=== PATIENT | female | born 1955 | race Caucasian/White ===

== ENCOUNTER 2017-02-01 00:21 | Inpatient (IN) | payer MEDICAID ==
[2017-02-01] VITALS (8 sets, daily range): BP systolic 107–181; BP diastolic 55–92; PULSE 75–96; RESP 14–20; TEMP 97.6–99.8; O2SAT 95–99
[~2017-02-01] VITALS: Ht 152.4 cm; Wt 102.2 kg
[2017-02-01] MEDS ORDERED: SODIUM CHLOR 0.9% 1000 ML INJ 1,000 ML IV SCH (01:27)
[2017-02-01] MEDS ORDERED: MAGNESIUM HYDROXIDE SUSP 30 ML CUP PO PRN (01:30)
[2017-02-01] MEDS ORDERED: ONDANSETRON HCL 4 MG/2 ML VIAL IVP PRN (01:30)
[2017-02-01] MEDS ORDERED: ACETAMINOPHEN 325 MG TAB PO PRN (01:30)
[2017-02-01] MEDS ORDERED: NALOXONE HCL 0.4 MG/ML AMP IV PRN (01:30)
[2017-02-01] MEDS ORDERED: BISACODYL 10 MG SUPP RECTAL PRN (01:30)
[2017-02-01] MEDS ORDERED: DEXTROSE 50% IN WATER 50 ML VIAL(D50) IV PRN (01:45)
[2017-02-01] MEDS ORDERED: GLUCAGON 1 MG/ML VIAL OTHER PRN (01:45)
[2017-02-01] MEDS ORDERED: ENOXAPARIN SODIUM 40 MG/0.4 ML SYRINGE SQ SCH (02:00)
[2017-02-01] MEDS: DEXT 5%-NACL 0.45% 1000 ML INJ 1,000 ML IV SCH (02:42)
[2017-02-01] MEDS ORDERED: PIPERACIL-TAZO 3.375 GM PREMIX 50 ML IV SCH (02:45)
[2017-02-01] MEDS ORDERED: MORPHINE SULFATE 4 MG/ML INJ IV PUSH ONE (02:45)
[2017-02-01] MEDS ORDERED: Vancomycin Consult Pharmacy 1 EA OTHER SCH (02:45)
[2017-02-01] MEDS: PIPERACIL-TAZO 2.25 GM PREMIX 50 ML IV SCH ×3 (03:54→15:00)
[2017-02-01] MEDS ORDERED: VANCOMYCIN INJ 1,250 MG in SODIUM CHLOR 0.9% 250 ML INJ 250 ML IV ONE (04:00)
--- NOTE | 2017-02-01 04:38 | HHI.HP ---
HPI Service [facility] Hospitalists Primary Care Physician Hugh Urrutia Admission Diagnosis L perineal cellulitis Diagnoses: Chief Complaint: pain and indurated skin L thigh/buttock area Travel History International Travel<30 Days: No Contact w/Intl Traveler <30 Da: No Traveled to Known Affected Are: No History of Present Illness Written by Adriana Alvarado, acting as scribe for Dr. Velázquez on 02/01/17 at 05: 12. This is a 61 year old female patient with a past medical which includes chronic kidney disease stage III, diabetes mellitus insulin-dependent, cirrhosis, depression and tobacco abuse. Patient presented to [facility] emergency department, with complaints of left inner thigh and buttock pain edema and erythema. Patient reports the area began as a small, "cyst," that has gotten more painful and increased in size over the past week. Patient describes the pain as sharp severe and in tears at time of exam. Patient also reports generalized malaise for the past few days with chills and nausea for the past 2 days. Patient denies any specific trauma or events leading to skin irritation. Patient denies any penile numbness, vaginal discharge, bleeding or rectal discharge. Patient also denies fevers vomiting diarrhea constipation chest pain or shortness of breath. Patient reports that she had similar symptoms on the right inner thigh which required surgical intervention in the past. Pelvic CT scan done at [facility] [place] she was left perineal cellulitis with no abscess. Review of Systems Except as stated in HPI: all other systems reviewed are Neg Past Family Social History Past Medical History chronic kidney disease stage III, diabetes mellitus insulin-dependent, cirrhosis , depression and tobacco abuse Past Surgical History Umbilical hernia repair, 2, excision right thigh cellulitis Reported Medications Patient unable to recall medications at this time nurse to complete medication reconciliation once pharmacy open Allergies: Coded Allergies: Egg Allergy (Verified Allergy, Unknown, 01/31/17) Levaquin (Verified Allergy, Unknown, 01/31/17) [place] (Verified Allergy, Unknown, 01/31/17) Pear (Verified Allergy, Unknown, 01/31/17) Penicillin (Verified Allergy, Unknown, 01/31/17) [place] (Verified Allergy, Unknown, 01/31/17) Active Ordered Medications Current Medications Medications (Trade) Dose Ordered Sig/Lotus Route Start Time Stop Time Status Last Admin (NS Flush) 2 ml UNSCH PRN IV FLUSH 02/01/17 01:30 (NS Flush) 2 ml BID IV FLUSH 02/01/17 09:00 (Tylenol) 650 mg Q4H PRN PO 02/01/17 01:30 (Zofran Inj) 4 mg Q6H PRN IVP 02/01/17 01:30 (Narcan Inj) 0.4 mg UNSCH PRN IV 02/01/17 01:30 (Meghana-Colace) 1 tab BID PO 02/01/17 09:00 (Milk Of Magnhazel Liq) 30 ml Q12H PRN PO 02/01/17 01:30 Bisacodyl 10 mg 10 mg DAILY PRN RECTAL 02/01/17 01:30 (D5W-1/2 NS 1000 ml Inj) 1,000 ml @ 42 mls/hr [id number] IV 02/01/17 01:45 02/01/17 02:42 (D50w (Vial) Inj) 50 ml UNSCH PRN IV 02/01/17 01:45 (Glucagon Inj) 1 mg UNSCH PRN OTHER 02/01/17 01:45 Morphine Sulfate 2 mg 2 mg Q4HR PRN IV PUSH 02/01/17 02:45 Pharmacy Profile Note 0 ml @ 0 mls/hr UNSCH OTHER 02/01/17 02:45 Vancomycin HCl 1250 mg/Sodium Chloride 262.5 ml @ 250 mls/hr ONCE ONCE IV 02/01/17 04:00 02/01/17 05:02 02/01/17 03:54 (Zosyn 2.25 Gm Premix) 50 ml @ 100 mls/hr Q6H IV 02/01/17 03:00 02/01/17 03:54 Family History Patient's mother is 89 alive and healthy Denies family medical history is specifically CAD/[place] or similar skin issues Social History Patient denies EtOH use Patient admits to smoking 5 cigarettes per day Physical Exam Vital Signs Vital Signs Date Time Temp Pulse Resp B/P Pulse Ox O2 Delivery O2 Flow Rate FiO2 02/01/17 01:00 97.6 78 14 107/55 95 Physical Exam GENERAL: This is an obese, well-developed patient, crying in pain SKIN: large indurated erythematous warm area from left upper thigh to buttock HEAD: Atraumatic. Normocephalic. No temporal or scalp tenderness. EYES: Extraocular motions intact. No scleral icterus. No injection or drainage. CARDIOVASCULAR: Regular rate and rhythm without murmurs, gallops, or rubs. RESPIRATORY: Clear to auscultation. Breath sounds equal bilaterally. No wheezes , rales, or rhonchi. GASTROINTESTINAL: Abdomen obese soft, non-tender, nondistended. Palpable rubbery 3 cm mass/lump palpable above the umbilicus. No guarding. MUSCULOSKELETAL: Extremities without clubbing, cyanosis, or edema. No joint tenderness, effusion, or edema noted. No calf tenderness. Negative Homans sign bilaterally. NEUROLOGICAL: Awake and alert. Cranial nerves II through XII intact. Motor and sensory grossly within normal limits. Five out of 5 muscle strength in all muscle groups. Normal speech. Assessment and Plan Problem List: (1) Cellulitis ICD Code: L03.90 Status: Acute (2) DM (diabetes mellitus) ICD Code: E11.9 Status: Chronic (3) Thrombocytopenia ICD Code: D69.6 Status: Chronic Assessment and Plan This is a 61 year old female patient with a past medical which includes chronic kidney disease stage III, diabetes mellitus insulin-dependent, cirrhosis, depression and tobacco abuse. Patient presented to [facility] emergency department, with complaints of left inner thigh and buttock pain edema and erythema. Patient reports the area began as a small, "cyst," that has gotten more painful and increased in size over the past week. Patient describes the pain as sharp severe and in tears at time of exam. Patient also reports generalized malaise for the past few days with chills and nausea for the past 2 days. Patient reports that she had similar symptoms on the right inner thigh which required surgical intervention in the past. Left peroneal cellulitis acute concern for necrotizing fasciitis Pelvic CT scan done at [facility] [place] she was left perineal cellulitis with no abscess ER physician [facility] [place] discussed with Gen. surgery Dr. Styles who agrees to see patient in consult Consult general surgery Morphine IV for pain Patient nothing by mouth at this time Requested nurse to ksenia area with skin marker and call if induration or erythema increases in size Patient given clindamycin and vancomycin IV in ER Start patient on Zosyn and vancomycin IV with pharmacy consultation for vancomycin chronic kidney disease stage III Avoid nephrotoxins monitor renal function Diabetes mellitus insulin-dependent Accu-Cheks before meals at bedtime with sliding scale insulin coverage Thrombocytopenia- likely chronic platelet count 51 CT abdomen and pelvis reviewed reveals enlarged spleen patient also has history of cirrhosis Monitor platelet trend Tobacco abuse- patient counseled encouraged to abstain DVT prophylaxis with SCDs Discussed severe provider, patient and nursing Physician Certification 2 Midnight Certification Type: Admission for Inpatient Services Order for Inpatient Services The services are ordered in accordance with Medicare regulations or non- Medicare payer requirements, as applicable. In the case of services not specified as inpatient-only, they are appropriately provided as inpatient services in accordance with the 2-midnight benchmark. Estimated LOS (days): 3 days is the estimated time the patient will need to remain in the hospital, assuming treatment plan goals are met and no additional complications. Post-Hospital Plan: Home Adriana Alvarado Feb 01, 2017 04:38
[2017-02-01] MEDS ORDERED: CLINDAMYCIN INJ 600 MG in SODIUM CHLORIDE 0.9% INJ 100 ML IV SCH (05:00)
[2017-02-01] MEDS: INSULIN ASPART SUPPLEMENTAL SCALE SQ SCH ×4 (06:16→22:18)
[2017-02-01] MEDS: DOCUSATE SODIUM 50 MG/SENNA 8.6 MG TAB PO SCH ×2 (09:00→21:00)
[2017-02-01] MEDS: SODIUM CHLORIDE 0.9% FLUSH 10 ML FLUSH IV FLUSH SCH ×2 (09:08→21:49)
[2017-02-01] MEDS: MORPHINE SULFATE 4 MG/ML INJ IV PUSH PRN ×4 (09:08→22:05)
--- NOTE | 2017-02-01 12:15 | HHI.PR ---
Subjective Remarks Follow-up for infection Patient continues to have severe pain with movement in her pelvic and inner thigh area. She remains afebrile. She stated that she had the same problem last time in which she had ago surgery. She has no other complaints. Denies any fevers or chills. Objective Vitals Vital Signs Date Time Temp Pulse Resp B/P Pulse Ox O2 Delivery O2 Flow Rate FiO2 02/01/17 09:00 Room Air 02/01/17 08:00 98.7 95 20 181/92 98 02/01/17 04:00 97.9 75 16 135/67 99 02/01/17 01:00 97.6 78 14 107/55 95 I/O 01/31/17 01/31/17 01/31/17 02/01/17 02/01/17 02/01/17 07:00 15:00 23:00 07:00 15:00 23:00 Intake Total 319 ml Balance 319 ml Intake IV Total 319 ml # Voids 1 # Bowel Movements 0 Objective Remarks GENERAL: This is an obese, well-developed patient, crying in pain SKIN: large indurated erythematous warm area from left upper thigh to buttock CARDIOVASCULAR: Regular rate and rhythm without murmurs, gallops, or rubs. RESPIRATORY: Clear to auscultation. Breath sounds equal bilaterally. No wheezes , rales, or rhonchi. GASTROINTESTINAL: Abdomen obese soft, non-tender, nondistended. Palpable rubbery 3 cm mass/lump palpable above the umbilicus. No guarding. Medications and IVs Current Medications Sodium Chloride (NS 1000 ml Inj) 1,000 ml @ 42 mls/hr [id number] IV ; Start at 01:27; Stop 02/01/17 at 01:46; Status DC Sodium Chloride (NS Flush) 2 ml UNSCH PRN IV FLUSH FLUSH AFTER USING IV ACCESS ; Start 02/01/17 at 01:30 Sodium Chloride (NS Flush) 2 ml BID IV FLUSH Last administered on 02/01/17t 09: 08; Start 02/01/17 at 09:00 Acetaminophen (Tylenol) 650 mg Q4H PRN PO TEMP > 100.4; Start 02/01/17 at 01:30 Ondansetron HCl (Zofran Inj) 4 mg Q6H PRN IVP NAUSEA OR VOMITING; Start at 01:30 Enoxaparin Sodium (Lovenox Inj) 40 mg Q24H SQ ; Start 02/01/17 at 02:00; Stop 02/01/17 at 02:03; Status DC Naloxone HCl (Narcan Inj) 0.4 mg UNSCH PRN IV SEE LABEL COMMENTS; Start at 01:30 Senna/Docusate Sodium (Meghana-Colace) 1 tab BID PO ; Start 02/01/17 at 09:00 Magnesium Hydroxide (Milk Of Magnesia Liq) 30 ml Q12H PRN PO MILD - MODERATE CONSTIPATION; Start 02/01/17 at 01:30 Bisacodyl 10 mg 10 mg DAILY PRN RECTAL SEVERE CONSITIPATION; Start 02/01/17 at 01:30 Clindamycin Phosphate 600 mg/ Sodium Chloride 104 ml @ 208 mls/hr Q8H IV ; Start 02/01/17 at 05:00; Stop 02/01/17 at 05:00; Status DC Dextrose/Sodium Chloride (D5W-1/2 NS 1000 ml Inj) 1,000 ml @ 42 mls/hr [id number] IV Last administered on 02/01/17 02:42; Start 02/01/17 at 01:45 Dextrose (D50w (Vial) Inj) 50 ml UNSCH PRN IV HYPOGLYCEMIA-SEE COMMENTS; Start 02/01/17 at 01:45 Glucagon (Glucagon Inj) 1 mg UNSCH PRN OTHER HYPOGLYCEMIA-SEE COMMENTS; Start 02/01/17 at 01:45 Insulin Aspart (NovoLOG SUPPLEMENTAL SCALE) 1 ACHS SLIDING SCALE SQ ; Start 02/01/17 at 07:00 Morphine Sulfate (Morphine Inj) 4 mg ONCE ONCE IV PUSH Last administered on 03:02; Start 02/01/17 at 02:45; Stop 02/01/17 at 02:56; Status DC Morphine Sulfate 2 mg 2 mg Q4HR PRN IV PUSH pain 1-10 Last administered on 09:08; Start 02/01/17 at 02:45 Pharmacy Profile Note 0 ml @ 0 mls/hr UNSCH OTHER ; Start 02/01/17 at 02:45 Piperacillin Sod/ Tazobactam Sod 50 ml @ 100 mls/hr Q6H IV ; Start 02/01/17 at 02:45; Status UNV Vancomycin HCl 1250 mg/Sodium Chloride 262.5 ml @ 250 mls/hr ONCE ONCE IV Last administered on 02/01/17 03:54; Start 02/01/17 at 04:00; Stop 02/01/17 at 05: 02; Status DC Piperacillin Sod/ Tazobactam Sod 50 ml @ 100 mls/hr Q6H IV Last administered on 02/01/17 09:09; Start 02/01/17 at 03:00 Vancomycin HCl/ Sodium Chloride (Vancomycin Inj/ NS 500 ml Inj) 515 ml @ 250 mls/hr Q24H IV ; Start 02/02/17 at 00:00 Miscellaneous Information SPECIFIC LAB TO BE DRAWN:VANCOMYCIN TROUGH DATE TO... ONCE ONCE .XX ; Start 02/03/17 at 23:45; Stop 02/03/17 at 23:46 A/P Problem List: (1) Cellulitis ICD Code: L03.90 Status: Acute (2) DM (diabetes mellitus) ICD Code: E11.9 Status: Chronic (3) Thrombocytopenia ICD Code: D69.6 Status: Chronic Assessment and Plan This is a 61 year old female patient with a past medical which includes chronic kidney disease stage III, diabetes mellitus insulin-dependent, cirrhosis, depression and tobacco abuse. Patient presented to [facility] emergency department, with complaints of left inner thigh and buttock pain edema and erythema. Left peroneal cellulitis acute concern for necrotizing fasciitis Pelvic CT scan done at [facility] [place] she was left perineal cellulitis with no abscess ER physician [facility] [place] discussed with Gen. surgery Dr. Styles who agrees to see patient in consult Pending consult from general surgery. on Morphine IV for pain Patient given clindamycin and vancomycin IV in ER on Zosyn and vancomycin IV with pharmacy consultation for vancomycin Due to the severity of infection will consult infectious disease. chronic kidney disease stage III Avoid nephrotoxins monitor renal function Diabetes mellitus insulin-dependent Accu-Cheks before meals at bedtime with sliding scale insulin coverage Thrombocytopenia- likely chronic platelet count 51 CT abdomen and pelvis reviewed reveals enlarged spleen patient also has history of cirrhosis Monitor platelet trend Tobacco abuse- patient counseled encouraged to abstain DVT prophylaxis with SCDs Discharge Planning Due to the severity of infection she may require surgery. Pending recommendations from the surgeon. She will also require IV antibiotics at the moment. Mala Topete MD Feb 01, 2017 12:15
--- NOTE | 2017-02-01 14:30 | PD.ID.CON ---
History of Present Illness Service ID Consult Requested By Dr Topete Reason for Consult perineal cellulitis ? nec fasc Primary Care Physician Hugh Urrutia Diagnoses: History of Present Illness Pt is a 61 yo diabetic female, on insulin with previous h/o nec fasc on R thigh developped painfule nodule in L perineal area since which keep getting worse SHe developped severe pain, and progressive ineduration and redness of L thigh, labia, lower buttock The redness was spereasding to the suprapubic area as well Borders were marked last night She stated to run low grade fever today + nausea She presented to [place] [facility] where she had CT abd/pel - not cw Felisha's Blood clx done in [place] is so far negative Noted very low UOP, just 2 voids since last night Pt was started on PCN and now co itching of face and chest She previosuly has h/o rash aw PCN use Review of Systems Except as stated in HPI: all other systems reviewed are Neg Past Family Social History Allergies: Coded Allergies: Egg Allergy (Verified Allergy, Unknown, 01/31/17) Levaquin (Verified Allergy, Unknown, 01/31/17) [place] (Verified Allergy, Unknown, 01/31/17) Pear (Verified Allergy, Unknown, 01/31/17) Penicillin (Verified Allergy, Unknown, 01/31/17) [place] (Verified Allergy, Unknown, 01/31/17) Past Medical History chronic kidney disease stage III, diabetes mellitus insulin-dependent, cirrhosis , depression and tobacco abuse Past Surgical History Umbilical hernia repair, 2, excision right thigh cellulitis Active Ordered Medications Medications where reviewed in EMR Antibiotics Include: vanco Pip Tazo Family History Patient's mother is 89 alive and healthy Denies family medical history is specifically CAD/[place] or similar skin issues Social History Patient denies EtOH use Patient admits to smoking 5 cigarettes per day Physical Exam Vital Signs Vital Signs Date Time Temp Pulse Resp B/P Pulse Ox O2 Delivery O2 Flow Rate FiO2 02/01/17 12:00 99.0 80 20 120/73 97 02/01/17 09:22 95 21 02/01/17 09:00 Room Air 02/01/17 08:00 98.7 95 20 181/92 98 02/01/17 04:00 97.9 75 16 135/67 99 02/01/17 01:00 97.6 78 14 107/55 95 Physical Exam CONSTITUTIONAL/GENERAL: This is an obese female patient, in no apparent distress. Vigorously itching her face and upper chest Looks ill TUBES/LINES/DRAINS: SKIN: No jaundice, Macular rash noteed on chest, face and upper arms STATUS LOCALIS: Perinral area on the L and lower buc=ttock extremely tender to palpation, indurated, red no crepitus no open wounds Erythema stays within =marked borders on thing, buttock and is no longer seen suprapubically HEAD: Atraumatic. Normocephalic. EYES: Pupils equal and round and reactive. Extraocular motions intact. No scleral icterus. No injection or drainage. Fundi not examined. ENT: Hearing grossly normal. Nose without bleeding or purulent drainage. Throat without visible erythema, exudates, masses, or lesions. NECK: Trachea midline. Supple, nontender. No palpable thyroid enlargement or nodularity. CARDIOVASCULAR: Regular rate and rhythm without murmurs, gallops, or rubs. No JVD. Peripheral pulses symmetric. RESPIRATORY/CHEST: Symmetric, unlabored respirations. Clear to auscultation. Breath sounds equal bilaterally. No wheezes, rales, or rhonchi. GASTROINTESTINAL: Abdomen soft, obese non-tender, nondistended. No hepato- splenomegaly, or palpable masses. No guarding. Bowel sounds present. GENITOURINARY: Without palpable bladder distension. MUSCULOSKELETAL: Extremities without clubbing, cyanosis, or edema. No joint tenderness or effusion noted. No calf tenderness. No mottling or clubbing. LYMPHATICS: No palpable cervical or supraclavicular adenopathy. No inguinal adenopathy NEUROLOGICAL: Awake and alert. Motor and sensory grossly within normal limits. Follows commands. Speech clear Moves all extremities. PSYCHIATRIC: No obvious anxiety/depression. no apparent hallucinations or other psychotic thought process. Imaging CT done yday in [place] ER showed no abscess, no air + cellulitis + cirrhosis, splenomegaly Assessment and Plan Assessment and Plan cellulitis/phegmone of L perineal area L buttock and L labia -CT not cw Felisha Multiple medical problems: DM cirrhosis, tob+ Allergic reaction to PCN, mild to moderate - BSA: azactam, vanco, flagyl - dc zosyn - Benadryl - awaiting gen surg consult - Discussed Condition With Zee Mckenzie RN, MD Feb 01, 2017 14:30
--- NOTE | 2017-02-01 15:38 | PD.CONS ---
cc: Alejandro Styles MD [facility] Service CONSULTATION NOTE FOR SURGICAL ATTENDING, DR. 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 She came to the emergency department in [place] for LEFT inner thigh and buttocks cellulitis. She reports that she noticed the cellulitis on or Monday of the prior week. She reports subjective fevers. She has felt all over malaise. She reports no sick contacts. A CT abdomen and pelvis was obtained which showed cellulitis but no drainable abscess. She was recently in the emergency department at [facility] for right upper quadrant pain. A workup there discovered she had cholelithiasis. She states she was not referred to a General Surgeon and sent home. A General Surgery consultation has been requested for evaluation of left peroneal, thigh and buttock cellulitis. Review of Systems Constitutional: COMPLAINS OF: Fever, Chills Endocrine: DENIES: Polydipsia, Polyuria, Polyphagia Eyes: DENIES: Diplopia, Eye inflammation Ears, nose, mouth, throat: DENIES: Hearing loss, Vertigo Respiratory: DENIES: Apneas, Cough Cardiovascular: DENIES: Chest pain, Palpitations Gastrointestinal: DENIES: Abdominal pain, Constipation, Nausea, Vomiting Genitourinary: DENIES: Urinary frequency, Urinary incontinence Musculoskeletal: DENIES: Joint pain Integumentary: COMPLAINS OF: Abnormal pigmentation (LEFT labia, LEFT thigh; LEFT buttocks cellulitis ) Hematologic/lymphatic: DENIES: Bruising Immunologic/allergic: DENIES: Eczema Neurologic: DENIES: Headache, Localized weakness Psychiatric: DENIES: Mood changes, Depression, Hallucinations Past Family Social History Past Medical History Cirrhosis related to hepatitis C infection Cholelithiasis kidney disease stage III insulin-dependent diabetes mellitus depression Past Surgical History Umbilical hernia repair Excision of right thigh cyst Reported Medications See chart Allergies: Coded Allergies: Egg Allergy (Verified Allergy, Unknown, 01/31/17) Levaquin (Verified Allergy, Unknown, 01/31/17) [place] (Verified Allergy, Unknown, 01/31/17) Pear (Verified Allergy, Unknown, 01/31/17) Penicillin (Verified Allergy, Unknown, 01/31/17) [place] (Verified Allergy, Unknown, 01/31/17) Active Ordered Medications Current Medications Medications (Trade) Dose Ordered Sig/Lotus Route Start Time Stop Time Status Last Admin (NS Flush) 2 ml UNSCH PRN IV FLUSH 02/01/17 01:30 (NS Flush) 2 ml BID IV FLUSH 02/01/17 09:00 02/01/17 09:08 (Tylenol) 650 mg Q4H PRN PO 02/01/17 01:30 (Zofran Inj) 4 mg Q6H PRN IVP 02/01/17 01:30 (Narcan Inj) 0.4 mg UNSCH PRN IV 02/01/17 01:30 (Meghana-Colace) 1 tab BID PO 02/01/17 09:00 (Milk Of Magnhazel Liq) 30 ml Q12H PRN PO 02/01/17 01:30 Bisacodyl 10 mg 10 mg DAILY PRN RECTAL 02/01/17 01:30 (D5W-1/2 NS 1000 ml Inj) 1,000 ml @ 42 mls/hr [id number] IV 02/01/17 01:45 02/01/17 02:42 (D50w (Vial) Inj) 50 ml UNSCH PRN IV 02/01/17 01:45 (Glucagon Inj) 1 mg UNSCH PRN OTHER 02/01/17 01:45 Morphine Sulfate 2 mg 2 mg Q4HR PRN IV PUSH 02/01/17 02:45 02/01/17 13:11 Pharmacy Profile Note 0 ml @ 0 mls/hr UNSCH OTHER 02/01/17 02:45 Piperacillin Sod/ Tazobactam Sod 50 ml @ 100 mls/hr Q6H IV 02/01/17 03:00 02/01/17 09:09 (Vancomycin Inj/ NS 500 ml Inj) 515 ml @ 250 mls/hr Q24H IV 02/02/17 00:00 Miscellaneous Information SPECIFIC LAB TO BE DRAWN:VANCOMYCIN TROUGH DATE TO... ONCE ONCE .XX 02/03/17 23:45 02/03/17 23:46 Family History Noncontributory Social History Tobacco-5 cigarettes daily Denies EtOH use Denies illicit drug use Physical Exam Vital Signs Vital Signs Date Time Temp Pulse Resp B/P Pulse Ox O2 Delivery O2 Flow Rate FiO2 02/01/17 12:00 99.0 80 20 120/73 97 02/01/17 09:22 95 21 02/01/17 09:00 Room Air 02/01/17 08:00 98.7 95 20 181/92 98 02/01/17 04:00 97.9 75 16 135/67 99 02/01/17 01:00 97.6 78 14 107/55 95 Physical Exam GENERAL: 61 year old female resting in bed in no acute distress. SKIN: LEFT inner thigh/LEFT labia/LEFT buttocks----reddened and tender area with border markings by RN--- The cellulitis does not meet the prior drawn marking. No palpable fluid collection. Otherwise skin exam with no other findings. HEAD: Atraumatic. Normocephalic. EYES: Pupils equal and round. No scleral icterus. No injection or drainage. ENT: No nasal bleeding or discharge. Mucous membranes pink and moist. NECK: Trachea midline. CARDIOVASCULAR: Regular rate and rhythm. RESPIRATORY: No accessory muscle use. Clear to auscultation. Breath sounds equal bilaterally. GASTROINTESTINAL: Abdomen soft, non-tender, nondistended. Healed scar from prior UHR. MUSCULOSKELETAL: Extremities without clubbing, cyanosis, or edema. No obvious deformities. NEUROLOGICAL: Awake and alert. No obvious cranial nerve deficits. Motor grossly within normal limits. Five out of 5 muscle strength in the arms and legs. Normal speech. PSYCHIATRIC: Appropriate mood and affect; insight and judgment normal. Assessment and Plan Assessment and Plan 61 year old female with LEFT inner thigh/LEFT labia/LEFT buttocks cellulitis -ID following-- Continue antibiotics -Continue to monitor WBC and fevers -Hibiclens shower daily -Regular diet -Pain control -Continue non operative treatment -General Surgery will follow along during the admission Discussed Condition With Dr. Stephani Owen Attending Statement CONSULTATION NOTE FOR SURGICAL ATTENDING, DR. LAEJANDRO STYLES I agree with above assessment and plan. The exam, history, and the medical decision-making described in the above note were completed with the assistance of the mid-level provider. I reviewed and agree with the findings presented. I attest that I had a [id number] encounter with the patient on the same day, and personally performed and documented my assessment and findings in the medical record. I saw the patient She has some mild cellulitic response that appears to be responding with antibiotic therapy in less than 24 hours. At this point I would continue IV antibiotics Allow the patient to shower with Hibiclens I reviewed the case and Discussed with Dr. Davidson of the infectious disease The following services were provided during this hospital visit: Chart data review, vital sign assessments/reviewing monitor data Review of consultations notes if present. Medication orders/review and/or management Ordering and/or reviewing lab tests Ordering and/or interpreting/reviewing x-rays and/or diagnostic studies Care of the patient and discussion of the patient with the care team Documentation time To help prompt me to consider important information that might be impacting today's encounter and assessment, information from prior notes written by myself or my colleagues may have been "brought forward/copy and pasted" into today's note. Suzette Hoang Feb 01, 2017 15:38 Alejandro Styles MD Feb 01, 2017 16:50
[2017-02-01] MEDS ORDERED: diphenhydrAMINE HCL 50 MG/ML VIAL IV PUSH PRN (15:45)
[2017-02-01] MEDS ORDERED: diphenhydrAMINE HCL 50 MG/ML VIAL IV ONE (16:30)
[2017-02-01] MEDS: metroNIDAZOLE 500 MG INJ 100 ML IV SCH (16:35)
[2017-02-01 17:04] LABS: AUTOMATED NEUTROPHIL # 5.7 TH/MM3 (1.8-7.7); BASOPHIL % 0.3 % (0.0-2.0); EOSINOPHIL # 0.1 TH/MM3 (0-0.4); EOSINOPHIL % 1.7 % (0.0-4.0); HEMATOCRIT 32.2 % (35.0-46.0); LYMPH % 9.4 % (9.0-44.0); LYMPHOCYTE # 0.7 TH/MM3 (1.0-4.8); MEAN CORPUSCULAR HEMOGLOBIN 30.3 PG (27.0-34.0); MEAN CORPUSCULAR HGB CONC 34.9 % (32.0-36.0); MONO % 8.4 % (0.0-8.0); NEUT % 80.2 % (16.0-70.0); PLATELET COUNT 52 TH/MM3 (150-450); RED CELL DISTRIBUTION WIDTH 13.3 % (11.6-17.2); WHITE BLOOD COUNT 7.1 TH/MM3 (4.0-11.0)
[2017-02-01 17:15] LABS: HEMO FLAGS AUTO DIFF
[2017-02-01 17:35] LABS: ALT (GPT) 21 U/L (10-53); ANION GAP 7 MEQ/L (5-15); AST (GOT) 22 U/L (15-37); BICARBONATE 23.4 MEQ/L (21.0-32.0); BLOOD UREA NITROGEN 27 MG/DL (7-18); CHLORIDE 107 MEQ/L (98-107); GLOMERULAR FILTRATION RATE 38 ML/MIN (>89); SODIUM (NA) 137 MEQ/L (136-145)
[2017-02-01 17:37] LABS: ALKALINE PHOSPHATASE 163 U/L (45-117); TOTAL BILIRUBIN ADULT 1.9 MG/DL (0.2-1.0)
[2017-02-01 17:51] LABS: PLATELET ESTIMATE SMEAR LOW (NORMAL); PLATELET MORPHOLOGY NORMAL (NORMAL); SCAN/DIFF AUTO DIFF CONFIRMED
[2017-02-01] MEDS: AZTREONAM INJ 2,000 MG in SODIUM CHLORIDE 0.9% INJ 100 ML IV SCH ×2 (18:01→21:47)
[2017-02-01] MEDS: CHLORHEXIDINE GLUCONATE 4% SOLN 120 ML BTL TOPICAL SCH (18:07)
[2017-02-01] MEDS: SODIUM CHLORIDE 0.9% FLUSH 10 ML FLUSH IV FLUSH PRN (22:06)
[2017-02-02] VITALS (7 sets, daily range): BP systolic 125–176; BP diastolic 63–87; PULSE 80–105; RESP 18; TEMP 97.8–99.8; O2SAT 96–99
[2017-02-02] MEDS: DEXT 5%-NACL 0.45% 1000 ML INJ 1,000 ML IV SCH (01:34)
[2017-02-02] MEDS ORDERED: ALDA50TA2 PO (05:07)
[2017-02-02] MEDS: AZTREONAM INJ 2,000 MG in SODIUM CHLORIDE 0.9% INJ 100 ML IV SCH ×4 (05:18→21:16)
[2017-02-02] MEDS ORDERED: REME15TA PO (06:02)
[2017-02-02] MEDS ORDERED: ZOFR4TAB PO (06:02)
[2017-02-02] MEDS ORDERED: ROBA500T PO (06:02)
[2017-02-02] MEDS ORDERED: FURO20TA PO (06:02)
[2017-02-02] MEDS ORDERED: PRIL20TA2 ×2 (06:02)
[2017-02-02] MEDS ORDERED: TRAZ50TA12 PO (06:02)
[2017-02-02] MEDS ORDERED: LACT10SO PO (06:04)
[2017-02-02] MEDS: INSULIN ASPART SUPPLEMENTAL SCALE SQ SCH ×4 (06:18→20:49)
[2017-02-02] MEDS: MORPHINE SULFATE 4 MG/ML INJ IV PUSH PRN ×4 (06:55→20:53)
[2017-02-02 07:50] LABS: AUTOMATED NEUTROPHIL # 3.6 TH/MM3 (1.8-7.7); BASOPHIL % 0.6 % (0.0-2.0); EOSINOPHIL # 0.1 TH/MM3 (0-0.4); EOSINOPHIL % 1.5 % (0.0-4.0); HEMATOCRIT 28.2 % (35.0-46.0); LYMPH % 12.6 % (9.0-44.0); LYMPHOCYTE # 0.6 TH/MM3 (1.0-4.8); MEAN CELL VOLUME 88.7 FL (80.0-100.0); MEAN CORPUSCULAR HGB CONC 33.9 % (32.0-36.0); MONO % 10.3 % (0.0-8.0); PLATELET COUNT 41 TH/MM3 (150-450); RED BLOOD COUNT 3.18 MIL/MM3 (4.00-5.30); WHITE BLOOD COUNT 4.8 TH/MM3 (4.0-11.0)
[2017-02-02 08:05] LABS: HEMO FLAGS AUTO DIFF
[2017-02-02] MEDS: SODIUM CHLORIDE 0.9% FLUSH 10 ML FLUSH IV FLUSH SCH ×2 (08:19→20:45)
[2017-02-02] MEDS: metroNIDAZOLE 500 MG INJ 100 ML IV SCH ×4 (08:19→23:32)
[2017-02-02] MEDS: DOCUSATE SODIUM 50 MG/SENNA 8.6 MG TAB PO SCH ×2 (08:20→20:45)
[2017-02-02] MEDS: CHLORHEXIDINE GLUCONATE 4% SOLN 120 ML BTL TOPICAL SCH (08:23)
[2017-02-02 08:24] LABS: POTASSIUM 5.4 MEQ/L (3.5-5.1)
[2017-02-02 08:50] LABS: PLATELET ESTIMATE SMEAR LOW (NORMAL); PLATELET MORPHOLOGY NORMAL (NORMAL); SCAN/DIFF AUTO DIFF CONFIRMED
--- NOTE | 2017-02-02 12:07 | HHI.PR ---
Subjective Subjective Notes DAILY PROGRESS NOTE FOR SURGICAL ATTENDING, DR. ROBERTO STYLES Resting in bed Reports less tenderness in LEFT thigh, LEFT labia, and LEFT buttocks Cleaned with Hibiclens cloths Objective Vitals/I&O Vital Signs Date Time Temp Pulse Resp B/P Pulse Ox O2 Delivery O2 Flow Rate FiO2 02/02/17 11:32 96 02/02/17 08:07 99.0 85 18 125/81 02/02/17 08:00 Room Air 02/01/17 21:53 21 Labs Laboratory Tests Test 02/01/17 02/02/17 16:34 07:12 White Blood Count 7.1 4.8 Red Blood Count 3.70 3.18 Hemoglobin 11.2 9.6 Hematocrit 32.2 28.2 Mean Corpuscular Volume 87.0 88.7 Mean Corpuscular Hemoglobin 30.3 30.0 Mean Corpuscular Hemoglobin 34.9 33.9 Concent Red Cell Distribution Width 13.3 13.0 Platelet Count 52 41 Mean Platelet Volume 9.9 9.5 Neutrophils (%) (Auto) 80.2 75.0 Lymphocytes (%) (Auto) 9.4 12.6 Monocytes (%) (Auto) 8.4 10.3 Eosinophils (%) (Auto) 1.7 1.5 Basophils (%) (Auto) 0.3 0.6 Neutrophils # (Auto) 5.7 3.6 Lymphocytes # (Auto) 0.7 0.6 Monocytes # (Auto) 0.6 0.5 Eosinophils # (Auto) 0.1 0.1 Basophils # (Auto) 0.0 0.0 CBC Comment AUTO DIFF AUTO DIFF Differential Comment AUTO DIFF AUTO DIFF CONFIRMED CONFIRMED Platelet Estimate LOW LOW Platelet Morphology Comment NORMAL NORMAL Sodium Level 137 137 Potassium Level 6.0 5.4 Chloride Level 107 109 Carbon Dioxide Level 23.4 22.0 Anion Gap 7 6 Blood Urea Nitrogen 27 25 Creatinine 1.40 1.28 Estimat Glomerular Filtration 38 43 Rate Random Glucose 130 241 Calcium Level 8.0 7.8 Total Bilirubin 1.9 Aspartate Amino Transf 22 (AST/SGOT) Alanine Aminotransferase 21 (ALT/SGPT) Alkaline Phosphatase 163 Total Protein 6.8 Albumin 2.6 Cardiovascular: Regular Lungs: Clear Abdomen: Non-distended, Non-tender Extremities: Other (see below) Narrative Exam LEFT thigh; LEFT labia; LEFT buttocks----- erythema decreased today; cellulitic skin changes do not come to the markings made by RN; less tender A/P Assessment and Plan 61 year old female with LEFT thigh, LEFT labia, and LEFT gluteus cellulites -Continue antibiotics per ID -Regular diet -Monitor for fevers -Hibiclens showers -Pain control -Continue non operative treatment Attending Statement NOTE FOR SURGICAL ATTENDING, DR. ROBERTO STYLES I agree with above assessment and plan. The exam, history, and the medical decision-making described in the above note were completed with the assistance of the mid-level provider. I reviewed and agree with the findings presented. I attest that I had a [id number] encounter with the patient on the same day, and personally performed and documented my assessment and findings in the medical record. Patient more comfortable Ambulating in room Discussed with Dr. Davidson The following services were provided during this hospital visit: Chart data review, vital sign assessments/reviewing monitor data Review of consultations notes if present. Medication orders/review and/or management Ordering and/or reviewing lab tests Ordering and/or interpreting/reviewing x-rays and/or diagnostic studies Care of the patient and discussion of the patient with the care team Documentation time To help prompt me to consider important information that might be impacting today's encounter and assessment, information from prior notes written by myself or my colleagues may have been "brought forward/copy and pasted" into today's note. Suzette Hoang Feb 02, 2017 12:07 Roberto Styles MD Feb 02, 2017 16:03
--- NOTE | 2017-02-02 13:55 | HHI.PR ---
Subjective Remarks Follow-up for infection and pain Patient stated that she continues have pain but she feels like is improved. She remains afebrile. 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 She stated that she had a transvaginal and pelvic ultrasound about 5 months ago and she was told that it was normal. Patient also complained about questionable blood-tinged tinge in her urine. She also stated that this is intermittent. She denies any dysuria, nocturia, polyuria. Patient stated that she is just very concerned that she might have a big mass in her belly although she is asymptomatic and does not complain of any abdominal pain. Objective Vitals Vital Signs Date Time Temp Pulse Resp B/P Pulse Ox O2 Delivery O2 Flow Rate FiO2 02/02/17 12:14 99.0 83 18 156/74 98 02/02/17 11:32 96 02/02/17 08:07 99.0 85 18 125/81 96 02/02/17 08:00 Room Air 02/02/17 04:00 99.4 86 18 135/63 97 02/02/17 00:00 99.7 105 18 150/65 96 02/01/17 21:53 98 21 02/01/17 21:20 Room Air 02/01/17 20:00 99.8 96 18 147/79 99 02/01/17 16:00 98.8 78 20 126/71 97 02/01/17 16:00 Room Air I/O 02/01/17 02/01/17 02/01/17 02/02/17 02/02/17 02/02/17 07:00 15:00 23:00 07:00 15:00 23:00 Intake Total 319 ml 438 ml 828 ml 829 ml Output Total 875 ml 400 ml Balance 319 ml -437 ml 828 ml 429 ml Intake Oral 0 ml 240 ml 120 ml IV Total 319 ml 438 ml 588 ml 709 ml Output Urine Total 875 ml 400 ml # Voids 1 1 # Bowel Movements 0 0 1 0 Result Diagram: 02/02/1771102/02/17711 Objective Remarks GENERAL: This is an obese, well-developed patient, crying in pain SKIN: large indurated erythematous warm area from left upper thigh to buttock that was demarcated with a marker CARDIOVASCULAR: Regular rate and rhythm without murmurs, gallops, or rubs. RESPIRATORY: Clear to auscultation. Breath sounds equal bilaterally. No wheezes , rales, or rhonchi. GASTROINTESTINAL: Abdomen obese soft, non-tender, nondistended. Palpable rubbery 3 cm mass/lump palpable above the umbilicus. No guarding. Medications and IVs Current Medications Sodium Chloride (NS 1000 ml Inj) 1,000 ml @ 42 mls/hr [id number] IV ; Start at 01:27; Stop 02/01/17 at 01:46; Status DC Sodium Chloride (NS Flush) 2 ml UNSCH PRN IV FLUSH FLUSH AFTER USING IV ACCESS Last administered on 02/01/17 22:06; Start 02/01/17 at 01:30 Sodium Chloride (NS Flush) 2 ml BID IV FLUSH Last administered on 02/01/17 21: 49; Start 02/01/17 at 09:00 Acetaminophen (Tylenol) 650 mg Q4H PRN PO TEMP > 100.4; Start 02/01/17 at 01:30 Ondansetron HCl (Zofran Inj) 4 mg Q6H PRN IVP NAUSEA OR VOMITING; Start at 01:30 Enoxaparin Sodium (Lovenox Inj) 40 mg Q24H SQ ; Start 02/01/17 at 02:00; Stop 02/01/17 at 02:03; Status DC Naloxone HCl (Narcan Inj) 0.4 mg UNSCH PRN IV SEE LABEL COMMENTS; Start at 01:30 Senna/Docusate Sodium (Meghana-Colace) 1 tab BID PO ; Start 02/01/17 at 09:00 Magnesium Hydroxide (Milk Of Magnesia Liq) 30 ml Q12H PRN PO MILD - MODERATE CONSTIPATION; Start 02/01/17 at 01:30 Bisacodyl 10 mg 10 mg DAILY PRN RECTAL SEVERE CONSITIPATION; Start 02/01/17 at 01:30 Clindamycin Phosphate 600 mg/ Sodium Chloride 104 ml @ 208 mls/hr Q8H IV ; Start 02/01/17 at 05:00; Stop 02/01/17 at 05:00; Status DC Dextrose/Sodium Chloride (D5W-1/2 NS 1000 ml Inj) 1,000 ml @ 42 mls/hr [id number] IV Last administered on 02/02/17 01:34; Start 02/01/17 at 01:45 Dextrose (D50w (Vial) Inj) 50 ml UNSCH PRN IV HYPOGLYCEMIA-SEE COMMENTS; Start 02/01/17 at 01:45 Glucagon (Glucagon Inj) 1 mg UNSCH PRN OTHER HYPOGLYCEMIA-SEE COMMENTS; Start 02/01/17 at 01:45 Insulin Aspart (NovoLOG SUPPLEMENTAL SCALE) 1 ACHS SLIDING SCALE SQ Last administered on 02/02/17 12:57; Start 02/01/17 at 07:00 Morphine Sulfate (Morphine Inj) 4 mg ONCE ONCE IV PUSH Last administered on 03:02; Start 02/01/17 at 02:45; Stop 02/01/17 at 02:56; Status DC Morphine Sulfate 2 mg 2 mg Q4HR PRN IV PUSH pain 1-10 Last administered on 12:24; Start 02/01/17 at 02:45 Pharmacy Profile Note 0 ml @ 0 mls/hr UNSCH OTHER ; Start 02/01/17 at 02:45 Piperacillin Sod/ Tazobactam Sod 50 ml @ 100 mls/hr Q6H IV ; Start 02/01/17 at 02:45; Status UNV Vancomycin HCl 1250 mg/Sodium Chloride 262.5 ml @ 250 mls/hr ONCE ONCE IV Last administered on 02/01/17 03:54; Start 02/01/17 at 04:00; Stop 02/01/17 at 05: 02; Status DC Piperacillin Sod/ Tazobactam Sod 50 ml @ 100 mls/hr Q6H IV Last administered on 02/01/17 09:09; Start 02/01/17 at 03:00; Stop 02/01/17 at 15:27; Status DC Vancomycin HCl/ Sodium Chloride (Vancomycin Inj/ NS 500 ml Inj) 515 ml @ 250 mls/hr Q24H IV Last administered on 02/02/17 00:00; Start 02/02/17 at 00:00 Miscellaneous Information SPECIFIC LAB TO BE DRAWN:VANCOMYCIN TROUGH DATE TO... ONCE ONCE .XX ; Start 02/03/17 at 23:45; Stop 02/03/17 at 23:46 Aztreonam 2000 mg/ Sodium Chloride 100 ml @ 200 mls/hr Q6H IV Last administered on 02/02/17 12:25; Start 02/01/17 at 17:00 Metronidazole (Flagyl 500 Mg Inj) 100 ml @ 100 mls/hr Q8H IV Last administered on 02/02/17 08:19; Start 02/01/17 at 16:00 Diphenhydramine HCl (Benadryl Inj) 25 mg Q6H PRN IV PUSH ALLERGIC REACTION; Start 02/01/17 at 15:45 Diphenhydramine HCl (Benadryl Inj) 25 mg NOW ONCE IV Last administered on 16:33; Start 02/01/17 at 16:30; Stop 02/01/17 at 16:31; Status DC Chlorhexidine Gluconate (Hibiclens 4% Top Soln) 1 applic DAILY TOPICAL Last administered on 02/02/17 08:23; Start 02/01/17 at 16:45 A/P Problem List: (1) Cellulitis ICD Code: L03.90 Status: Acute (2) DM (diabetes mellitus) ICD Code: E11.9 Status: Chronic (3) Thrombocytopenia ICD Code: D69.6 Status: Chronic Assessment and Plan This is a 61 year old female patient with a past medical which includes chronic kidney disease stage III, diabetes mellitus insulin-dependent, cirrhosis, depression and tobacco abuse. Patient presented to [facility] emergency department, with complaints of left inner thigh and buttock pain edema and erythema. Left peroneal/inner thigh cellulitis/phlegmon Pelvic CT scan done at [facility] [place] she was left perineal cellulitis with no abscess on Morphine IV for pain Patient given clindamycin and vancomycin IV in ER Then she was put on on Zosyn and vancomycin IV with pharmacy consultation for vancomycin Infectious disease was consulted in which Zosyn was discontinued. Vancomycin was discontinued and she was started on azactam and flagyl Gen. surgery consulted and they stated to continue with nonsurgical management. chronic kidney disease stage III Avoid nephrotoxins monitor renal function Renal function is improving but mildly elevated potassium. We will give a dose of Kayexalate and continue to monitor. Diabetes mellitus insulin-dependent Accu-Cheks before meals at bedtime with sliding scale insulin coverage Thrombocytopenia- likely chronic platelet count 51 CT abdomen and pelvis reviewed reveals enlarged spleen patient also has history of cirrhosis Monitor platelet trend Tobacco abuse- patient counseled encouraged to abstain DVT prophylaxis with SCDs Discharge Planning Patient continues to require IV antibiotics. Mala Topete MD Feb 02, 2017 13:55
[2017-02-02] MEDS ORDERED: SODIUM POLYSTYRENE SULFONATE SUSP 15 GM/60 ML CUP RECTAL ONE (14:00)
--- NOTE | 2017-02-02 16:44 | HHI.IDPN ---
Subjective Subjective Remarks Doing better Pain somhwat improved No fever, though temps are boderline elevated No itching Antibiotics azactam flagyl vanco Allergies: Coded Allergies: Egg Allergy (Verified Allergy, Unknown, 01/31/17) Levaquin (Verified Allergy, Unknown, 01/31/17) [place] (Verified Allergy, Unknown, 01/31/17) Pear (Verified Allergy, Unknown, 01/31/17) Penicillin (Verified Allergy, Unknown, 01/31/17) [place] (Verified Allergy, Unknown, 01/31/17) Objective . Vital Signs Date Time Temp Pulse Resp B/P Pulse Ox O2 Delivery O2 Flow Rate FiO2 02/02/17 12:14 99.0 83 18 156/74 98 02/02/17 11:32 96 02/02/17 08:07 99.0 85 18 125/81 96 02/02/17 08:00 Room Air 02/02/17 04:00 99.4 86 18 135/63 97 02/02/17 00:00 99.7 105 18 150/65 96 02/01/17 21:53 98 21 02/01/17 21:20 Room Air 02/01/17 20:00 99.8 96 18 147/79 99 02/01/17 02/01/17 02/02/17 15:00 23:00 07:00 Intake Total 438 ml 828 ml 829 ml Output Total 875 ml 400 ml Balance -437 ml 828 ml 429 ml Intake Oral 0 ml 240 ml 120 ml IV Total 438 ml 588 ml 709 ml Output Urine Total 875 ml 400 ml # Voids 1 # Bowel Movements 0 1 0 . Laboratory Tests Test 02/01/17 02/02/17 16:34 07:12 White Blood Count 7.1 TH/MM3 4.8 TH/MM3 Red Blood Count 3.70 MIL/MM3 3.18 MIL/MM3 Hemoglobin 11.2 GM/DL 9.6 GM/DL Hematocrit 32.2 % 28.2 % Mean Corpuscular Volume 87.0 FL 88.7 FL Mean Corpuscular Hemoglobin 30.3 PG 30.0 PG Mean Corpuscular Hemoglobin 34.9 % 33.9 % Concent Red Cell Distribution Width 13.3 % 13.0 % Platelet Count 52 TH/MM3 41 TH/MM3 Mean Platelet Volume 9.9 FL 9.5 FL Neutrophils (%) (Auto) 80.2 % 75.0 % Lymphocytes (%) (Auto) 9.4 % 12.6 % Monocytes (%) (Auto) 8.4 % 10.3 % Eosinophils (%) (Auto) 1.7 % 1.5 % Basophils (%) (Auto) 0.3 % 0.6 % Neutrophils # (Auto) 5.7 TH/MM3 3.6 TH/MM3 Lymphocytes # (Auto) 0.7 TH/MM3 0.6 TH/MM3 Monocytes # (Auto) 0.6 TH/MM3 0.5 TH/MM3 Eosinophils # (Auto) 0.1 TH/MM3 0.1 TH/MM3 Basophils # (Auto) 0.0 TH/MM3 0.0 TH/MM3 CBC Comment AUTO DIFF AUTO DIFF Differential Comment AUTO DIFF AUTO DIFF CONFIRMED CONFIRMED Platelet Estimate LOW LOW Platelet Morphology Comment NORMAL NORMAL Laboratory Tests Test 02/01/17 02/02/17 16:34 07:12 Sodium Level 137 MEQ/L 137 MEQ/L Potassium Level 6.0 MEQ/L 5.4 MEQ/L Chloride Level 107 MEQ/L 109 MEQ/L Carbon Dioxide Level 23.4 MEQ/L 22.0 MEQ/L Anion Gap 7 MEQ/L 6 MEQ/L Blood Urea Nitrogen 27 MG/DL 25 MG/DL Creatinine 1.40 MG/DL 1.28 MG/DL Estimat Glomerular Filtration 38 ML/MIN 43 ML/MIN Rate Random Glucose 130 MG/DL 241 MG/DL Calcium Level 8.0 MG/DL 7.8 MG/DL Total Bilirubin 1.9 MG/DL Aspartate Amino Transf 22 U/L (AST/SGOT) Alanine Aminotransferase 21 U/L (ALT/SGPT) Alkaline Phosphatase 163 U/L Total Protein 6.8 GM/DL Albumin 2.6 GM/DL Physical Exam CONSTITUTIONAL/GENERAL: This is an obese female patient, in no apparent distress. Vigorously itching her face and upper chest Looks ill TUBES/LINES/DRAINS: SKIN: No jaundice, Macular rash noteed on chest, face and upper arms STATUS LOCALIS: Perinral area on the L and lower buttock much less tender to palpation, less indurated, significantly improved and diminished erythema no crepitus no open wounds Area on L buttock is still very indurated and tender to touch, but no fuctuance HEAD: Atraumatic. Normocephalic. EYES: Pupils equal and round and reactive. Extraocular motions intact. No scleral icterus. No injection or drainage. Fundi not examined. CARDIOVASCULAR: Regular rate and rhythm without murmurs, gallops, or rubs. No JVD. Peripheral pulses symmetric. RESPIRATORY/CHEST: Symmetric, unlabored respirations. Clear to auscultation. Breath sounds equal bilaterally. No wheezes, rales, or rhonchi. GASTROINTESTINAL: Abdomen soft, obese non-tender, nondistended. No hepato- splenomegaly, or palpable masses. No guarding. Bowel sounds present. GENITOURINARY: Without palpable bladder distension. MUSCULOSKELETAL: Extremities without clubbing, cyanosis, or edema. No joint tenderness or effusion noted. No calf tenderness. No mottling or clubbing. NEUROLOGICAL: Awake and alert. non focal PSYCHIATRIC: No obvious anxiety/depression. no apparent hallucinations or other psychotic thought process. Assessment & Plan Remarks cellulitis/phegmone of L perineal area L buttock and L labia , CT not cw Felisha - xclinically improving with broad spectrum abx - small area on the buttock still a concern Multiple medical problems: DM cirrhosis, tob+ Allergic reaction to PCN, mild to moderate: resolved - cont azactam, vanco, flagyl - fu for need of I+D - Zee Davidson MD Feb 02, 2017 16:43
[2017-02-02] MEDS: traZODone HCL 100 MG TAB PO SCH (21:16)
[2017-02-02] MEDS: MIRTAZAPINE 15 MG TAB PO SCH (21:16)
[2017-02-02] MEDS: VANCOMYCIN INJ 1,500 MG in SODIUM CHLORID 0.9% 500 ML INJ 500 ML IV SCH ×3 (23:32)
[2017-02-03] VITALS (8 sets, daily range): BP systolic 112–184; BP diastolic 56–101; PULSE 70–104; RESP 16–25; TEMP 98.6–102.3; O2SAT 96–100
[2017-02-03] MEDS: MORPHINE SULFATE 4 MG/ML INJ IV PUSH PRN ×5 (01:20→22:55)
[2017-02-03] MEDS: DEXT 5%-NACL 0.45% 1000 ML INJ 1,000 ML IV SCH (01:21)
[2017-02-03 01:52] LABS: BACTERIA, URINE RARE /hpf; BLOOD, URINE MOD (NEG); GLUCOSE,URINE 300 mg/dL (NEG); KETONE, URINE NEG (NEG); NITRITE,URINE NEG (NEG); SQUAMOUS EPITHELIAL CELL URINE 5 /hpf (0-5); URINE COLOR YELLOW (YELLW/STRAW)
[2017-02-03] MEDS: AZTREONAM INJ 2,000 MG in SODIUM CHLORIDE 0.9% INJ 100 ML IV SCH ×4 (05:41→22:02)
[2017-02-03] MEDS: INSULIN ASPART SUPPLEMENTAL SCALE SQ SCH ×3 (06:25→15:30)
[2017-02-03] MEDS: metroNIDAZOLE 500 MG INJ 100 ML IV SCH ×3 (08:10→22:44)
[2017-02-03] MEDS: DOCUSATE SODIUM 50 MG/SENNA 8.6 MG TAB PO SCH ×2 (08:10→22:02)
[2017-02-03] MEDS: LACTULOSE SYRUP 20 GM/30 ML CUP PO SCH ×2 (08:10→13:00)
[2017-02-03] MEDS: SODIUM CHLORIDE 0.9% FLUSH 10 ML FLUSH IV FLUSH SCH ×2 (08:10→22:02)
[2017-02-03] MEDS: CHLORHEXIDINE GLUCONATE 4% SOLN 120 ML BTL TOPICAL SCH (08:11)
[2017-02-03 08:25] LABS: HEMATOCRIT 28.8 % (35.0-46.0); MEAN CORPUSCULAR HGB CONC 33.7 % (32.0-36.0); PLATELET COUNT 48 TH/MM3 (150-450); RED BLOOD COUNT 3.23 MIL/MM3 (4.00-5.30); RED CELL DISTRIBUTION WIDTH 13.2 % (11.6-17.2); WHITE BLOOD COUNT 4.6 TH/MM3 (4.0-11.0)
[2017-02-03 08:37] LABS: REVIEW FLAG FINAL
[2017-02-03 08:54] LABS: BICARBONATE 18.5 MEQ/L (21.0-32.0); POTASSIUM 4.8 MEQ/L (3.5-5.1)
[2017-02-03 09:08] LABS: CALCIUM-PROTEIN CORRECTED 8.1 MG/DL (8.5-10.1)
--- NOTE | 2017-02-03 11:27 | HHI.PR ---
Subjective Remarks This is a 61 year old female patient with a past medical which includes chronic kidney disease stage III, diabetes mellitus insulin-dependent, cirrhosis, depression and tobacco abuse. Patient presented to [facility] emergency department, with complaints of left inner thigh and buttock pain edema and erythema. Patient reports the area began as a small, "cyst," that has gotten more painful and increased in size over the past week. Patient describes the pain as sharp severe and in tears at time of exam. Patient also reports generalized malaise for the past few days with chills and nausea for the past 2 days. Patient denies any specific trauma or events leading to skin irritation. Patient denies any penile numbness, vaginal discharge, bleeding or rectal discharge. Patient also denies fevers vomiting diarrhea constipation chest pain or shortness of breath. Patient reports that she had similar symptoms on the right inner thigh which required surgical intervention in the past. Pelvic CT scan done at [facility] [place] she was left perineal cellulitis with no abscess. 02/03: Seen in her bedroom in the presence of nurse, worsening as per the marked area is smaller than the area or erythema seen on physical exam also the patient complaint of chills, she is afebrile, uncontrolled blood sugar and Hypertension. Objective Vital Signs Date Time Temp Pulse Resp B/P Pulse Ox O2 Delivery O2 Flow Rate FiO2 02/03/17 08:10 Room Air 02/03/17 08:00 98.6 70 20 132/64 97 02/03/17 04:00 98.8 82 22 112/56 96 02/03/17 00:00 99.5 97 22 115/56 97 02/02/17 20:09 99.8 96 18 157/79 96 02/02/17 20:00 Room Air 02/02/17 16:00 97.8 80 18 176/87 99 02/02/17 12:14 99.0 83 18 156/74 98 02/02/17 11:32 96 I/O 02/02/17 02/02/17 02/02/17 02/03/17 02/03/17 02/03/17 07:00 15:00 23:00 07:00 15:00 23:00 Intake Total 829 ml 676 ml 898 ml 1025 ml Output Total 400 ml 2200 ml 500 ml Balance 429 ml -1524 ml 898 ml 525 ml Intake Oral 120 ml 240 ml 320 ml 200 ml IV Total 709 ml 436 ml 578 ml 825 ml Output Urine Total 400 ml 2200 ml 500 ml # Voids 2 # Bowel Movements 0 0 0 0 Result Diagram: 02/03/17 0758 02/03/17 0758 Imaging No new imaging studies performed. Procedures No procedures performed. Other Results Laboratory Tests Test 02/01/17 02/02/17 02/03/17 02/03/17 16:34 07:12 01:20 07:58 Total Bilirubin 1.9 MG/DL Aspartate Amino Transf 22 U/L (AST/SGOT) Alanine Aminotransferase 21 U/L (ALT/SGPT) Alkaline Phosphatase 163 U/L Albumin 2.6 GM/DL Neutrophils (%) (Auto) 75.0 % Lymphocytes (%) (Auto) 12.6 % Monocytes (%) (Auto) 10.3 % Eosinophils (%) (Auto) 1.5 % Basophils (%) (Auto) 0.6 % Neutrophils # (Auto) 3.6 TH/MM3 Lymphocytes # (Auto) 0.6 TH/MM3 Monocytes # (Auto) 0.5 TH/MM3 Eosinophils # (Auto) 0.1 TH/MM3 Basophils # (Auto) 0.0 TH/MM3 CBC Comment AUTO DIFF Differential Comment AUTO DIFF CONFIRMED Platelet Estimate LOW Platelet Morphology Comment NORMAL Urine Color YELLOW Urine Turbidity HAZY Urine pH 6.0 Urine Specific [place] 1.021 Urine Protein 300 mg/dL Urine Glucose (UA) 300 mg/dL Urine Ketones NEG mg/dL Urine Occult Blood MOD Urine Nitrite NEG Urine Bilirubin NEG Urine Urobilinogen LESS THAN 2.0 MG/DL Urine Leukocyte Esterase NEG Urine RBC 63 /hpf Urine WBC 3 /hpf Urine Squamous Epithelial 5 /hpf Cells Urine Bacteria RARE /hpf Microscopic Urinalysis Comment White Blood Count 4.6 TH/MM3 Red Blood Count 3.23 MIL/MM3 Hemoglobin 9.7 GM/DL Hematocrit 28.8 % Mean Corpuscular Volume 89.0 FL Mean Corpuscular Hemoglobin 30.0 PG Mean Corpuscular Hemoglobin 33.7 % Concent Red Cell Distribution Width 13.2 % Platelet Count 48 TH/MM3 Mean Platelet Volume 9.2 FL Sodium Level 139 MEQ/L Potassium Level 4.8 MEQ/L Chloride Level 111 MEQ/L Carbon Dioxide Level 18.5 MEQ/L Anion Gap 10 MEQ/L Blood Urea Nitrogen 18 MG/DL Creatinine 1.12 MG/DL Estimat Glomerular Filtration 50 ML/MIN Rate Random Glucose 189 MG/DL Calcium Level 7.3 MG/DL Protein Corrected Calcium 8.1 MG/DL Total Protein 5.7 GM/DL Objective Remarks GENERAL: No acute distress. SKIN: Erythema and edema on left thigh seen. HEAD: Atraumatic. Normocephalic. EYES: Pupils equal and round. No scleral icterus. No injection or drainage. ENT: No nasal bleeding or discharge. Mucous membranes pink and moist. NECK: Trachea midline. No JVD. CARDIOVASCULAR: Regular rate and rhythm. RESPIRATORY: No accessory muscle use. Clear to auscultation. Breath sounds equal bilaterally. GASTROINTESTINAL: Abdomen soft, non-tender, nondistended. Hepatic and splenic margins not palpable. MUSCULOSKELETAL: Extremities without clubbing, cyanosis, or edema. No obvious deformities. NEUROLOGICAL: Awake and alert. No obvious cranial nerve deficits. Motor grossly within normal limits. Five out of 5 muscle strength in the arms and legs. Normal speech. PSYCHIATRIC: Appropriate mood and affect; insight and judgment normal. Medications and IVs Current Medications Medications (Trade) Dose Ordered Sig/Lotus Route Start Time Stop Time Status Last Admin (NS Flush) 2 ml UNSCH PRN IV FLUSH 02/01/17 01:30 02/01/17 22:06 (NS Flush) 2 ml BID IV FLUSH 02/01/17 09:00 02/03/17 08:10 (Tylenol) 650 mg Q4H PRN PO 02/01/17 01:30 (Zofran Inj) 4 mg Q6H PRN IVP 02/01/17 01:30 (Narcan Inj) 0.4 mg UNSCH PRN IV 02/01/17 01:30 (Meghana-Colace) 1 tab BID PO 02/01/17 09:00 02/03/17 08:10 (Milk Of Magnesia Liq) 30 ml Q12H PRN PO 02/01/17 01:30 Bisacodyl 10 mg 10 mg DAILY PRN RECTAL 02/01/17 01:30 (D5W-1/2 NS 1000 ml Inj) 1,000 ml @ 42 mls/hr [id number] IV 02/01/17 01:45 02/03/17 01:21 (D50w (Vial) Inj) 50 ml UNSCH PRN IV 02/01/17 01:45 (Glucagon Inj) 1 mg UNSCH PRN OTHER 02/01/17 01:45 Morphine Sulfate 2 mg 2 mg Q4HR PRN IV PUSH 02/01/17 02:45 02/03/17 05:41 Pharmacy Profile Note 0 ml @ 0 mls/hr UNSCH OTHER 02/01/17 02:45 (Vancomycin Inj/ NS 500 ml Inj) 515 ml @ 250 mls/hr Q24H IV 02/02/17 00:00 02/02/17 23:32 Miscellaneous Information SPECIFIC LAB TO BE DRAWN:VANCOMYCIN TROUGH DATE TO... ONCE ONCE .XX 02/03/17 23:45 02/03/17 23:46 Aztreonam 2000 mg/ Sodium Chloride 100 ml @ 200 mls/hr Q6H IV 02/01/17 17:00 02/03/17 05:41 (Flagyl 500 Mg Inj) 100 ml @ 100 mls/hr Q8H IV 02/01/17 16:00 02/03/17 08:10 (Benadryl Inj) 25 mg Q6H PRN IV PUSH 02/01/17 15:45 (Hibiclens 4% Top Soln) 1 applic DAILY TOPICAL 02/01/17 16:45 02/03/17 08:11 (Lactulose Liq) 30 ml TID PO 02/03/17 09:00 02/03/17 08:10 (Remeron) 15 mg HS PO 02/02/17 21:00 02/02/17 21:16 (Desyrel) 200 mg HS PO 02/02/17 21:15 02/02/17 21:16 A/P Assessment and Plan 1. Cellulitis/phlegmon on Left Perineal area Left buttock and labia, CT not found Felisha, improving on antibiotics as per ID specialist Doctor Stuart, had Allergic Reaction to Penicillin mild to moderate resolved, on Azactam and Flagyl and Vancomycin. if no improvement General Surgery will perform I and D. 2. CKD III stable 3. DM II insulin dependent, uncontrolled sliding scale to Medium dose, Levemir at bed time, Insulin 3 units removed D5 4. Depression continue Home medicines. 5. Tobacco dependency strongly recommended to stop smoking. 6. Thrombocytopenia Platelet count [address] scan. 7. Hypertension she has some increased blood pressure now, started on Vasotec. DVT prophylaxis with SCDs Discharge Planning Once cleared by ID specialist. Thang Cheema MD Feb 03, 2017 11:27
--- NOTE | 2017-02-03 14:46 | HHI.IDPN ---
Subjective Subjective Remarks states her pain and redness are worse no fever also co liquid diarrhea Antibiotics azactam flagyl vanco Allergies: Coded Allergies: Egg Allergy (Verified Allergy, Unknown, 01/31/17) Levaquin (Verified Allergy, Unknown, 01/31/17) [place] (Verified Allergy, Unknown, 01/31/17) [place] (Verified Allergy, Unknown, 01/31/17) Penicillin (Verified Allergy, Unknown, 01/31/17) [place] (Verified Allergy, Unknown, 01/31/17) Objective . Vital Signs Date Time Temp Pulse Resp B/P Pulse Ox O2 Delivery O2 Flow Rate FiO2 02/03/17 08:10 Room Air 02/03/17 08:00 98.6 70 20 132/64 97 02/03/17 04:00 98.8 82 22 112/56 96 02/03/17 00:00 99.5 97 22 115/56 97 02/02/17 20:09 99.8 96 18 157/79 96 02/02/17 20:00 Room Air 02/02/17 16:00 97.8 80 18 176/87 99 02/02/17 02/02/17 02/03/17 15:00 23:00 07:00 Intake Total 676 ml 898 ml 1025 ml Output Total 2200 ml 500 ml Balance -1524 ml 898 ml 525 ml Intake Oral 240 ml 320 ml 200 ml IV Total 436 ml 578 ml 825 ml Output Urine Total 2200 ml 500 ml # Voids 2 # Bowel Movements 0 0 0 . Laboratory Tests Test 02/01/17 02/02/17 02/03/17 16:34 07:12 07:58 White Blood Count 7.1 TH/MM3 4.8 TH/MM3 4.6 TH/MM3 Red Blood Count 3.70 MIL/MM3 3.18 MIL/MM3 3.23 MIL/MM3 Hemoglobin 11.2 GM/DL 9.6 GM/DL 9.7 GM/DL Hematocrit 32.2 % 28.2 % 28.8 % Mean Corpuscular Volume 87.0 FL 88.7 FL 89.0 FL Mean Corpuscular Hemoglobin 30.3 PG 30.0 PG 30.0 PG Mean Corpuscular Hemoglobin 34.9 % 33.9 % 33.7 % Concent Red Cell Distribution Width 13.3 % 13.0 % 13.2 % Platelet Count 52 TH/MM3 41 TH/MM3 48 TH/MM3 Mean Platelet Volume 9.9 FL 9.5 FL 9.2 FL Neutrophils (%) (Auto) 80.2 % 75.0 % Lymphocytes (%) (Auto) 9.4 % 12.6 % Monocytes (%) (Auto) 8.4 % 10.3 % Eosinophils (%) (Auto) 1.7 % 1.5 % Basophils (%) (Auto) 0.3 % 0.6 % Neutrophils # (Auto) 5.7 TH/MM3 3.6 TH/MM3 Lymphocytes # (Auto) 0.7 TH/MM3 0.6 TH/MM3 Monocytes # (Auto) 0.6 TH/MM3 0.5 TH/MM3 Eosinophils # (Auto) 0.1 TH/MM3 0.1 TH/MM3 Basophils # (Auto) 0.0 TH/MM3 0.0 TH/MM3 CBC Comment AUTO DIFF AUTO DIFF Differential Comment AUTO DIFF AUTO DIFF CONFIRMED CONFIRMED Platelet Estimate LOW LOW Platelet Morphology Comment NORMAL NORMAL Laboratory Tests Test 02/01/17 02/02/17 02/03/17 16:34 07:12 07:58 Sodium Level 137 MEQ/L 137 MEQ/L 139 MEQ/L Potassium Level 6.0 MEQ/L 5.4 MEQ/L 4.8 MEQ/L Chloride Level 107 MEQ/L 109 MEQ/L 111 MEQ/L Carbon Dioxide Level 23.4 MEQ/L 22.0 MEQ/L 18.5 MEQ/L Anion Gap 7 MEQ/L 6 MEQ/L 10 MEQ/L Blood Urea Nitrogen 27 MG/DL 25 MG/DL 18 MG/DL Creatinine 1.40 MG/DL 1.28 MG/DL 1.12 MG/DL Estimat Glomerular Filtration 38 ML/MIN 43 ML/MIN 50 ML/MIN Rate Random Glucose 130 MG/DL 241 MG/DL 189 MG/DL Calcium Level 8.0 MG/DL 7.8 MG/DL 7.3 MG/DL Total Bilirubin 1.9 MG/DL Aspartate Amino Transf 22 U/L (AST/SGOT) Alanine Aminotransferase 21 U/L (ALT/SGPT) Alkaline Phosphatase 163 U/L Total Protein 6.8 GM/DL 5.7 GM/DL Albumin 2.6 GM/DL Protein Corrected Calcium 8.1 MG/DL Physical Exam CONSTITUTIONAL/GENERAL: This is an obese female patient, in no apparent distress. Vigorously itching her face and upper chest Looks ill TUBES/LINES/DRAINS: SKIN: No jaundice, Macular rash noteed on chest, face and upper arms STATUS LOCALIS: Perinral area on the L and lower buttock much less tender to palpation, less indurated, worsening erythema L thigh, perineal area no crepitus no open wounds Area on L buttock is still very indurated and tender to touch, but no fuctuance Induration now extending to L inner/posterior thigh and exquisetely tender to plpation there HEAD: Atraumatic. Normocephalic. EYES: Pupils equal and round and reactive. Extraocular motions intact. No scleral icterus. No injection or drainage. Fundi not examined. CARDIOVASCULAR: Regular rate and rhythm without murmurs, gallops, or rubs. No JVD. Peripheral pulses symmetric. RESPIRATORY/CHEST: Symmetric, unlabored respirations. Clear to auscultation. Breath sounds equal bilaterally. No wheezes, rales, or rhonchi. GASTROINTESTINAL: Abdomen soft, obese non-tender, nondistended. No hepato- splenomegaly, or palpable masses. No guarding. Bowel sounds present. GENITOURINARY: Without palpable bladder distension. MUSCULOSKELETAL: Extremities without clubbing, cyanosis, or edema. No joint tenderness or effusion noted. No calf tenderness. No mottling or clubbing. NEUROLOGICAL: Awake and alert. non focal PSYCHIATRIC: No obvious anxiety/depression. no apparent hallucinations or other psychotic thought process. Assessment & Plan Remarks cellulitis/phegmone of L perineal area L buttock and L labia , CT not cw Felisha - xclinically improving with broad spectrum abx -worse in the last 24 hrs with extention to L thigh - still no fluctuance on physical exam to suggest the abscess - probably will bneed surgical debridement if cont to worsen Multiple medical problems: DM cirrhosis, tob+ Allergic reaction to PCN, mild to moderate: resolved Abx associated diarrhea - cont azactam, vanco, flagyl - fu clinicall - CT tomorrow - ro c.diff dw Zee Vidales MD Feb 03, 2017 14:45
--- NOTE | 2017-02-03 15:24 | HHI.PR ---
Subjective Subjective Notes DAILY PROGRESS NOTE FOR SURGICAL ATTENDING, DR. ROBERTO STYLES Resting in bed Having several loose BMs after taking Lactulose Objective Vitals/I&O Vital Signs Date Time Temp Pulse Resp B/P Pulse Ox O2 Delivery O2 Flow Rate FiO2 02/03/17 08:10 Room Air 02/03/17 08:00 98.6 70 20 132/64 97 02/01/17 21:53 21 Labs Laboratory Tests Test 02/03/17 02/03/17 01:20 07:58 Urine Color YELLOW Urine Turbidity HAZY Urine pH 6.0 Urine Specific [place] 1.021 Urine Protein 300 Urine Glucose (UA) 300 Urine Ketones NEG Urine Occult Blood MOD Urine Nitrite NEG Urine Bilirubin NEG Urine Urobilinogen LESS THAN 2.0 Urine Leukocyte Esterase NEG Urine RBC 63 Urine WBC 3 Urine Squamous Epithelial 5 Cells Urine Bacteria RARE Microscopic Urinalysis Comment White Blood Count 4.6 Red Blood Count 3.23 Hemoglobin 9.7 Hematocrit 28.8 Mean Corpuscular Volume 89.0 Mean Corpuscular Hemoglobin 30.0 Mean Corpuscular Hemoglobin 33.7 Concent Red Cell Distribution Width 13.2 Platelet Count 48 Mean Platelet Volume 9.2 Sodium Level 139 Potassium Level 4.8 Chloride Level 111 Carbon Dioxide Level 18.5 Anion Gap 10 Blood Urea Nitrogen 18 Creatinine 1.12 Estimat Glomerular Filtration 50 Rate Random Glucose 189 Calcium Level 7.3 Protein Corrected Calcium 8.1 Total Protein 5.7 Cardiovascular: Regular Lungs: Clear Abdomen: Non-distended, Non-tender Extremities: Other (see below ) Narrative Exam LEFT thigh; LEFT labia; LEFT buttocks----- erythema the same as yesterday; cellulitic skin changes do not come to the markings made by RN; slight increase in tenderness A/P Assessment and Plan 61 year old female with LEFT thigh, LEFT labia, and LEFT gluteus cellulites -Repeat pelvic CT -Continue antibiotics per ID -Regular diet -Monitor for fevers -Hibiclens showers -Pain control -Continue non operative treatment Attending Statement NOTE FOR SURGICAL ATTENDING, DR. ROBERTO STYLES I agree with above assessment and plan. The exam, history, and the medical decision-making described in the above note were completed with the assistance of the mid-level provider. I reviewed and agree with the findings presented. Patient seen Discussed with Dr. Davidson infectious disease. At this point no drainable fluid collection on imaging or physical exam Continue antibiotic therapy Will reimage to evaluate possible development of an active drainable abscess. I attest that I had a [id number] encounter with the patient on the same day, and personally performed and documented my assessment and findings in the medical record. The following services were provided during this hospital visit: Chart data review, vital sign assessments/reviewing monitor data Review of consultations notes if present. Medication orders/review and/or management Ordering and/or reviewing lab tests Ordering and/or interpreting/reviewing x-rays and/or diagnostic studies Care of the patient and discussion of the patient with the care team Documentation time To help prompt me to consider important information that might be impacting today's encounter and assessment, information from prior notes written by myself or my colleagues may have been "brought forward/copy and pasted" into today's note. Suzette Hoang Feb 03, 2017 15:24 Roberto Styles MD Feb 06, 2017 19:17
[2017-02-03] MEDS ORDERED: ENALAPRILAT 1.25 MG/ML VIAL IV PUSH PRN (16:15)
[2017-02-03] MEDS: SODIUM CHLOR 0.9% 1000 ML INJ 1,000 ML IV SCH (17:03)
[2017-02-03 17:58] LABS: AUTOMATED NEUTROPHIL # 5.3 TH/MM3 (1.8-7.7); BASOPHIL % 0.4 % (0.0-2.0); EOSINOPHIL # 0.1 TH/MM3 (0-0.4); EOSINOPHIL % 1.3 % (0.0-4.0); HEMATOCRIT 33.5 % (35.0-46.0); LYMPH % 5.8 % (9.0-44.0); LYMPHOCYTE # 0.4 TH/MM3 (1.0-4.8); MEAN CELL VOLUME 89.3 FL (80.0-100.0); MEAN CORPUSCULAR HEMOGLOBIN 29.6 PG (27.0-34.0); MEAN CORPUSCULAR HGB CONC 33.2 % (32.0-36.0); MONO % 8.4 % (0.0-8.0); NEUT % 84.1 % (16.0-70.0); PLATELET COUNT 63 TH/MM3 (150-450); RED BLOOD COUNT 3.75 MIL/MM3 (4.00-5.30); RED CELL DISTRIBUTION WIDTH 13.1 % (11.6-17.2); WHITE BLOOD COUNT 6.3 TH/MM3 (4.0-11.0)
[2017-02-03 18:04] LABS: HEMO FLAGS AUTO DIFF
[2017-02-03 18:09] LABS: ALT (GPT) 21 U/L (10-53); ANION GAP 10 MEQ/L (5-15); AST (GOT) 17 U/L (15-37); BICARBONATE 18.2 MEQ/L (21.0-32.0); BLOOD UREA NITROGEN 17 MG/DL (7-18); CHLORIDE 108 MEQ/L (98-107); GLOMERULAR FILTRATION RATE 40 ML/MIN (>89); POTASSIUM 5.2 MEQ/L (3.5-5.1); SODIUM (NA) 136 MEQ/L (136-145)
[2017-02-03 18:16] LABS: ALKALINE PHOSPHATASE 223 U/L (45-117); TOTAL BILIRUBIN ADULT 0.6 MG/DL (0.2-1.0)
[2017-02-03] MEDS: INSULIN HUMAN REGULAR 1,000 UNITS/10 ML VIAL SQ SCH (19:21)
[2017-02-03 19:26] LABS: BANDS 6 % (0-6); BASOPHILS 1 % (0-2); MYELOCYTES 1 % (0-0); NEUTROPHIL # MANUAL DIFF 5.7 TH/MM3 (1.8-7.7); PLATELET ESTIMATE SMEAR LOW (NORMAL); PLATELET MORPHOLOGY NORMAL (NORMAL); POLYS (SEG NEUTROPHILS) 84 % (16-70); SCAN/DIFF FINAL DIFF MANUAL; WBC DIFF SAMPLE 100
[2017-02-03 19:42] LABS: LACTIC ACID GHOST NOT REPORTABLE
[2017-02-03 20:14] LABS: C. DIFF EPI 027 PRESUMPTIVE NEGATIVE (NEGATIVE)
--- NOTE | 2017-02-03 20:19 | HHI.PR ---
Addendum to Inpatient Note Additional Information reveived a call from the RN Pt had a fever up to 102.8 lactic acid 2.6 Her redness appears to speread pat the marked borders per nurse account Earlier dw Dr Polo who was planning to do CT thigh tomorrow Coag neg staph bactermia from blood clx from 01/31 , low grade 1/4 - cw contaminant Asssessment; wrsening SSTI with signs of early sepsis - pt is no longer responding to abx ? abscess - will get CT tonight - rechk blood clx - fu C.diff (sent) - further rec's per clnical dynamics and CT results Zee Garcia RN, Dr, MD Feb 03, 2017 20:18
[2017-02-03 20:29] LABS: C. DIFF TOXIN PCR POSITIVE (NEGATIVE)
[2017-02-03] MEDS ORDERED: IODIXANOL 320 MG/ML 50 ML VIAL (for EPS) IV ONE (20:50)
--- NOTE | 2017-02-03 21:10 | RADRPT ---
EXAM DATE/TIME: 02/03/2017 20:35 [facility] COMPARISON: No previous studies available for comparison. INDICATIONS : Left sided cellulitis. Possible abdominal mass. IV CONTRAST: 46 cc Visipaque (iodixanol) IV ORAL CONTRAST: No oral contrast ingested. RADIATION DOSE: 12.76 CTDIvol (mGy) MEDICAL HISTORY : Cirrhosis. Renal insufficiency. SURGICAL HISTORY : None. ENCOUNTER: Initial ACUITY: 2 days PAIN SCALE: 6/10 LOCATION: Left abdomen TECHNIQUE: Volumetric scanning of the abdomen and pelvis was performed. Using automated exposure control and ad justment of the mA and/or kV according to patient size, radiation dose was kept as low as reasonably achievable to obtain optimal diagnostic quality images. FINDINGS: Lung bases are clear. There is liver cirrhosis. Spleen is enlarged to 22 cm in length. 2 cm splenic cyst superiorly There i s moderate ascites. Numerous layering calcifications present within the gallbladder. No significant biliary ductal dilata tion. Adrenals and pancreas unremarkable. There are left-sided retroperitoneal varices especially ellie und the spleen. There is a low lying left kidney extending into the pelvis. Right kidney unremarkable . There is a ventral hernia containing fat and fluid in the lower anterior abdomen. No bowel obstruction. No free air. No acute bony abnormalities. There is at least moderate central ca nal stenosis within the lumbar spine. There is extensive subcutaneous edema in the proximal left thigh which may represent an associated ce llulitis. No discrete abscess. CONCLUSION: 1. There is extensive subcutaneous edema in the proximal left thigh, greater than on the right side w hich may represent a cellulitis in addition to anasarca. No loculated fluid in the proximal thigh to suggest abscess. 2. Liver cirrhosis with moderate ascites and varices especially around the splenic hilum. Mild anasar ca. 3. Splenomegaly to at least 22 cm. 4. Numerous layering calcified gallstones or sludge in the gallbladder 5. Fat and fluid containing ventral hernia measuring up to 6.4 cm in diameter. . Alejandro Perea MD on February 03, 2017 at 20:59 Board Certified Radiologist. This report was verified electronically.
[2017-02-03] MEDS: traZODone HCL 100 MG TAB PO SCH (22:02)
[2017-02-03] MEDS: MIRTAZAPINE 15 MG TAB PO SCH (22:02)
[2017-02-03] MEDS: INSULIN NovoLIN REGULAR SUPPLEMENTAL SCALE SQ SCH (22:08)
[2017-02-03] MEDS: INSULIN DETEMIR 100 UNITS/ML VIAL SQ SCH (22:08)
[2017-02-03] MEDS: VANCOMYCIN 500 MG VIAL (FOR ORAL USE ONLY) PO SCH (22:44)
[2017-02-03] MEDS: VANCOMYCIN INJ 1,500 MG in SODIUM CHLORID 0.9% 500 ML INJ 500 ML IV SCH (22:45)
[2017-02-03] MEDS ORDERED: PHARMACY ORDERED LAB ONE (23:45)
[2017-02-04] VITALS: BP 130/63; PULSE 91; RESP 20; TEMP 99; O2SAT 94
[2017-02-04] MEDS: SODIUM CHLOR 0.9% 1000 ML INJ 1,000 ML IV SCH ×2 (03:43→19:00)
[2017-02-04] MEDS: AZTREONAM INJ 2,000 MG in SODIUM CHLORIDE 0.9% INJ 100 ML IV SCH ×4 (03:43→22:49)
[2017-02-04 04:00] VITALS: BP 127/61; PULSE 70; RESP 20; TEMP 98.9; O2SAT 98
[2017-02-04] MEDS: MORPHINE SULFATE 4 MG/ML INJ IV PUSH PRN ×4 (05:01→20:40)
[2017-02-04] MEDS: VANCOMYCIN 500 MG VIAL (FOR ORAL USE ONLY) PO SCH ×3 (05:06→16:44)
[2017-02-04] MEDS: INSULIN NovoLIN REGULAR SUPPLEMENTAL SCALE SQ SCH ×4 (06:44→20:46)
[2017-02-04 08:00] VITALS: BP 158/78; PULSE 80; RESP 20; TEMP 98; O2SAT 97
[2017-02-04] MEDS: metroNIDAZOLE 500 MG INJ 100 ML IV SCH ×2 (08:51→16:44)
[2017-02-04] MEDS: DOCUSATE SODIUM 50 MG/SENNA 8.6 MG TAB PO SCH ×2 (09:00→20:38)
[2017-02-04] MEDS: CHLORHEXIDINE GLUCONATE 4% SOLN 120 ML BTL TOPICAL SCH (09:00)
[2017-02-04] MEDS: SODIUM CHLORIDE 0.9% FLUSH 10 ML FLUSH IV FLUSH SCH ×2 (09:02→20:40)
[2017-02-04] MEDS: INSULIN HUMAN REGULAR 1,000 UNITS/10 ML VIAL SQ SCH ×3 (09:04→18:00)
[2017-02-04 12:00] VITALS: BP 160/81; PULSE 80; RESP 20; TEMP 98.3; O2SAT 99
--- NOTE | 2017-02-04 12:33 | HHI.PR ---
Subjective Subjective Notes Still painful on medial thigh. Objective Vitals/I&O Vital Signs Date Time Temp Pulse Resp B/P Pulse Ox O2 Delivery O2 Flow Rate FiO2 02/04/17 08:00 98.0 80 20 158/78 97 02/03/17 20:00 Room Air 02/01/17 21:53 21 Labs Laboratory Tests Test 02/03/17 02/03/17 02/03/17 17:23 18:00 21:25 White Blood Count 6.3 Red Blood Count 3.75 Hemoglobin 11.1 Hematocrit 33.5 Mean Corpuscular Volume 89.3 Mean Corpuscular Hemoglobin 29.6 Mean Corpuscular Hemoglobin 33.2 Concent Red Cell Distribution Width 13.1 Platelet Count 63 Mean Platelet Volume 9.4 Neutrophils (%) (Auto) 84.1 Lymphocytes (%) (Auto) 5.8 Monocytes (%) (Auto) 8.4 Eosinophils (%) (Auto) 1.3 Basophils (%) (Auto) 0.4 Neutrophils # (Auto) 5.3 Lymphocytes # (Auto) 0.4 Monocytes # (Auto) 0.5 Eosinophils # (Auto) 0.1 Basophils # (Auto) 0.0 CBC Comment AUTO DIFF Differential Total Cells 100 Counted Neutrophils % (Manual) 84 Band Neutrophils % 6 Lymphocytes % 6 Monocytes % 2 Basophils % 1 Neutrophils # (Manual) 5.7 Myelocytes 1 Differential Comment FINAL DIFF MANUAL Platelet Estimate LOW Platelet Morphology Comment NORMAL Sodium Level 136 Potassium Level 5.2 Chloride Level 108 Carbon Dioxide Level 18.2 Anion Gap 10 Blood Urea Nitrogen 17 Creatinine 1.34 Estimat Glomerular Filtration 40 Rate Random Glucose 320 Lactic Acid Level 2.6 1.8 Calcium Level 7.7 Total Bilirubin 0.6 Aspartate Amino Transf 17 (AST/SGOT) Alanine Aminotransferase 21 (ALT/SGPT) Alkaline Phosphatase 223 Total Protein 7.0 Albumin 2.3 Vancomycin Level Trough 24.9 Stool C. difficile Toxin (PCR) POSITIVE Stl C. difficile Toxin PRESUMPTIVE Epiderm 027 NEGATIVE Date/Time Procedure Status Source Growth 02/03/17 21:25 Aerobic Blood Culture - Preliminary Resulted Blood Peripheral NO GROWTH IN 1 DAY 02/03/17 21:25 Anaerobic Blood Culture - Preliminary Resulted Blood Peripheral NO GROWTH IN 1 DAY Extremities: No edema, Other (Erythema on distal posterior thigh and perigluteal area; small area induration between these two areas) A/P Assessment and Plan Assessment and Plan 61 year old female with LEFT thigh, LEFT labia, and LEFT gluteus cellulites -Repeat pelvic CT shows no drainable fluid collection -Continue antibiotics per ID -Regular diet -Monitor for fevers -Hibiclens showers -Pain control -Continue non operative treatment -Discussed with patient that she may yet develop a delayed abscess and require surgery, but not presently. Shad Templeton MD Feb 04, 2017 12:33
--- NOTE | 2017-02-04 13:56 | HHI.IDPN ---
Subjective Subjective Remarks reveived a call from the RN yday re a fever up to 102.8 pt co diarrhea, bloating , abd cramps C.diff was +; vanco started last night She is better today no fever BC neg @ [address] w/o drainable fluid or air lactic acid was 2.6 yday down to 1.8 today Antibiotics azactam flagyl vanco iv vanco po Allergies: Coded Allergies: Egg Allergy (Verified Allergy, Unknown, 01/31/17) Levaquin (Verified Allergy, Unknown, 01/31/17) Rich (Verified Allergy, Unknown, 01/31/17) Pear (Verified Allergy, Unknown, 01/31/17) Penicillin (Verified Allergy, Unknown, 01/31/17) [place] (Verified Allergy, Unknown, 01/31/17) Objective . Vital Signs Date Time Temp Pulse Resp B/P Pulse Ox O2 Delivery O2 Flow Rate FiO2 02/04/17 12:00 98.3 80 20 160/81 99 02/04/17 08:00 98.0 80 20 158/78 97 02/04/17 04:00 98.9 70 20 127/61 98 02/04/17 00:00 99.0 91 20 130/63 94 02/03/17 20:00 101.3 90 20 165/85 97 02/03/17 20:00 Room Air 02/03/17 19:30 101.8 90 16 156/72 100 02/03/17 16:00 102.3 100 20 184/83 100 02/03/17 15:31 99.5 104 25 172/101 100 02/03/17 02/03/17 02/04/17 15:00 23:00 07:00 Intake Total 360 ml 200 ml 2322 ml Output Total 200 ml 400 ml Balance 160 ml 200 ml 1922 ml Intake Oral 360 ml 200 ml 120 ml IV Total 2202 ml Output Urine Total 200 ml 400 ml # Voids 1 # Bowel Movements 3 0 . Laboratory Tests Test 02/03/17 02/03/17 07:58 17:23 White Blood Count 4.6 TH/MM3 6.3 TH/MM3 Red Blood Count 3.23 MIL/MM3 3.75 MIL/MM3 Hemoglobin 9.7 GM/DL 11.1 GM/DL Hematocrit 28.8 % 33.5 % Mean Corpuscular Volume 89.0 FL 89.3 FL Mean Corpuscular Hemoglobin 30.0 PG 29.6 PG Mean Corpuscular Hemoglobin 33.7 % 33.2 % Concent Red Cell Distribution Width 13.2 % 13.1 % Platelet Count 48 TH/MM3 63 TH/MM3 Mean Platelet Volume 9.2 FL 9.4 FL Neutrophils (%) (Auto) 84.1 % Lymphocytes (%) (Auto) 5.8 % Monocytes (%) (Auto) 8.4 % Eosinophils (%) (Auto) 1.3 % Basophils (%) (Auto) 0.4 % Neutrophils # (Auto) 5.3 TH/MM3 Lymphocytes # (Auto) 0.4 TH/MM3 Monocytes # (Auto) 0.5 TH/MM3 Eosinophils # (Auto) 0.1 TH/MM3 Basophils # (Auto) 0.0 TH/MM3 CBC Comment AUTO DIFF Differential Total Cells 100 Counted Neutrophils % (Manual) 84 % Band Neutrophils % 6 % Lymphocytes % 6 % Monocytes % 2 % Basophils % 1 % Neutrophils # (Manual) 5.7 TH/MM3 Myelocytes 1 % Differential Comment FINAL DIFF MANUAL Platelet Estimate LOW Platelet Morphology Comment NORMAL Laboratory Tests Test 02/03/17 02/03/17 02/03/17 07:58 17:23 21:25 Sodium Level 139 MEQ/L 136 MEQ/L Potassium Level 4.8 MEQ/L 5.2 MEQ/L Chloride Level 111 MEQ/L 108 MEQ/L Carbon Dioxide Level 18.5 MEQ/L 18.2 MEQ/L Anion Gap 10 MEQ/L 10 MEQ/L Blood Urea Nitrogen 18 MG/DL 17 MG/DL Creatinine 1.12 MG/DL 1.34 MG/DL Estimat Glomerular Filtration 50 ML/MIN 40 ML/MIN Rate Random Glucose 189 MG/DL 320 MG/DL Calcium Level 7.3 MG/DL 7.7 MG/DL Protein Corrected Calcium 8.1 MG/DL Total Protein 5.7 GM/DL 7.0 GM/DL Lactic Acid Level 2.6 mmol/L 1.8 mmol/L Total Bilirubin 0.6 MG/DL Aspartate Amino Transf 17 U/L (AST/SGOT) Alanine Aminotransferase 21 U/L (ALT/SGPT) Alkaline Phosphatase 223 U/L Albumin 2.3 GM/DL Microbiology Date/Time Procedure Status Source Growth 02/03/17 17:23 Aerobic Blood Culture - Preliminary Resulted Blood Peripheral NO GROWTH IN 1 DAY 02/03/17 17:23 Anaerobic Blood Culture - Preliminary Resulted Blood Peripheral NO GROWTH IN 1 DAY 02/03/17 21:25 Aerobic Blood Culture - Preliminary Resulted Blood Peripheral NO GROWTH IN 1 DAY 02/03/17 21:25 Anaerobic Blood Culture - Preliminary Resulted Blood Peripheral NO GROWTH IN 1 DAY Imaging Last Impressions Abdomen/Pelvis CT 02/03/17 0000 Signed Impressions: Service Date/Time: Friday, February 03, 2017 20:35 - CONCLUSION: 1. There is extensive subcutaneous edema in the proximal left thigh, greater than on the right side which may represent a cellulitis in addition to anasarca. No loculated fluid in the proximal thigh to suggest abscess. 2. Liver cirrhosis with moderate ascites and varices especially around the splenic hilum. Mild anasarca. 3. Splenomegaly to at least 22 cm. 4. Numerous layering calcified gallstones or sludge in the gallbladder 5. Fat and fluid containing ventral hernia measuring up to 6.4 cm in diameter. . Alejandro Perea MD Physical Exam CONSTITUTIONAL/GENERAL: This is an obese female patient, in no apparent distress. looks better TUBES/LINES/DRAINS: SKIN: No jaundice, rash resolved STATUS LOCALIS: Perinral area on the L and lower buttock quite tender to palpation, indurated , no fluctuance edema and erythema of L thigh, perineal area L labia nad L buttock - improving no crepitus no open wounds HEAD: Atraumatic. Normocephalic. EYES: Pupils equal and round and reactive. Extraocular motions intact. No scleral icterus. No injection or drainage. Fundi not examined. CARDIOVASCULAR: Regular rate and rhythm without murmurs, gallops, or rubs. No JVD. Peripheral pulses symmetric. RESPIRATORY/CHEST: Symmetric, unlabored respirations. Clear to auscultation. Breath sounds equal bilaterally. No wheezes, rales, or rhonchi. GASTROINTESTINAL: Abdomen soft, obese + mildly- to moderately tende to palpation RLQ, markedly distended. No hepato-splenomegaly, or palpable masses. No guarding. Bowel sounds present. GENITOURINARY: Without palpable bladder distension. MUSCULOSKELETAL: Extremities without clubbing, cyanosis, or edema. NEUROLOGICAL: Awake and alert. non focal PSYCHIATRIC: No obvious anxiety/depression. no apparent hallucinations or other psychotic thought process. Assessment & Plan Remarks cellulitis/phegmone of L perineal area L buttock and L labia , CT not cw Felisha - xclinically improving with broad spectrum abx -worse in the last 24 hrs with extention to L thigh - still no fluctuance on physical exam to suggest the abscess - probably will bneed surgical debridement if cont to worsen - Gen sx ff, no surgical intervention at this point Multiple medical problems: DM cirrhosis, tob+ Allergic reaction to PCN, mild to moderate: resolved C diff - new problem High grade fever, sepsis - ? C.diff and L thigh/buttock SSTI contributing clinically improved - cont azactam, IV vanco, flagyl - fu clinically - fu for fluctuance - fu blood clx - cont oral vanco for C.diff - Zee Davidson MD Feb 04, 2017 13:56
[2017-02-04 16:00] VITALS: BP 135/89; PULSE 84; RESP 20; TEMP 99.3; O2SAT 94
--- NOTE | 2017-02-04 17:48 | HHI.PR ---
Subjective Remarks This is a 61 year old female patient with a past medical which includes chronic kidney disease stage III, diabetes mellitus insulin-dependent, cirrhosis, depression and tobacco abuse. Patient presented to [facility] emergency department, with complaints of left inner thigh and buttock pain edema and erythema. Patient reports the area began as a small, "cyst," that has gotten more painful and increased in size over the past week. Patient describes the pain as sharp severe and in tears at time of exam. Patient also reports generalized malaise for the past few days with chills and nausea for the past 2 days. Patient denies any specific trauma or events leading to skin irritation. Patient denies any penile numbness, vaginal discharge, bleeding or rectal discharge. Patient also denies fevers vomiting diarrhea constipation chest pain or shortness of breath. Patient reports that she had similar symptoms on the right inner thigh which required surgical intervention in the past. Pelvic CT scan done at [facility] [place] she was left perineal cellulitis with no abscess. 02/03: Seen in her bedroom in the presence of nurse, worsening as per the marked area is smaller than the area or erythema seen on physical exam also the patient complaint of chills, she is afebrile, uncontrolled blood sugar and Hypertension. 02/04: Stable in her bedroom, improving clinically but continue with induration, and may need surgery, as per ID and General Surgery, continue with Pain adjusted medicines. no nausea, vomit, has loose stools with positive C Diff on Vancomycin by mouth and Flagyl IV Objective Vital Signs Date Time Temp Pulse Resp B/P Pulse Ox O2 Delivery O2 Flow Rate FiO2 02/04/17 12:00 98.3 80 20 160/81 99 02/04/17 08:00 96 Room Air 21 02/04/17 08:00 98.0 80 20 158/78 97 02/04/17 04:00 98.9 70 20 127/61 98 02/04/17 00:00 99.0 91 20 130/63 94 02/03/17 20:00 101.3 90 20 165/85 97 02/03/17 20:00 Room Air 02/03/17 19:30 101.8 90 16 156/72 100 I/O 02/03/17 02/03/17 02/03/17 02/04/17 02/04/17 02/04/17 07:00 15:00 23:00 07:00 15:00 23:00 Intake Total 1025 ml 360 ml 200 ml 2322 ml Output Total 500 ml 200 ml 400 ml Balance 525 ml 160 ml 200 ml 1922 ml Intake Oral 200 ml 360 ml 200 ml 120 ml IV Total 825 ml 2202 ml Output Urine Total 500 ml 200 ml 400 ml # Voids 1 # Bowel Movements 0 3 0 Result Diagram: 02/03/17 1723 02/03/17 1723 Imaging Last Impressions Abdomen/Pelvis CT 02/03/17 0000 Signed Impressions: Service Date/Time: Friday, February 03, 2017 20:35 - CONCLUSION: 1. There is extensive subcutaneous edema in the proximal left thigh, greater than on the right side which may represent a cellulitis in addition to anasarca. No loculated fluid in the proximal thigh to suggest abscess. 2. Liver cirrhosis with moderate ascites and varices especially around the splenic hilum. Mild anasarca. 3. Splenomegaly to at least 22 cm. 4. Numerous layering calcified gallstones or sludge in the gallbladder 5. Fat and fluid containing ventral hernia measuring up to 6.4 cm in diameter. . Alejandro Perea MD Procedures No procedures performed. Other Results Laboratory Tests Test 02/03/17 02/03/17 02/03/17 02/03/17 01:20 07:58 17:23 18:00 Urine Color YELLOW Urine Turbidity HAZY Urine pH 6.0 Urine Specific [place] 1.021 Urine Protein 300 mg/dL Urine Glucose (UA) 300 mg/dL Urine Ketones NEG mg/dL Urine Occult Blood MOD Urine Nitrite NEG Urine Bilirubin NEG Urine Urobilinogen LESS THAN 2.0 MG/DL Urine Leukocyte Esterase NEG Urine RBC 63 /hpf Urine WBC 3 /hpf Urine Squamous Epithelial 5 /hpf Cells Urine Bacteria RARE /hpf Microscopic Urinalysis Comment Protein Corrected Calcium 8.1 MG/DL White Blood Count 6.3 TH/MM3 Red Blood Count 3.75 MIL/MM3 Hemoglobin 11.1 GM/DL Hematocrit 33.5 % Mean Corpuscular Volume 89.3 FL Mean Corpuscular Hemoglobin 29.6 PG Mean Corpuscular Hemoglobin 33.2 % Concent Red Cell Distribution Width 13.1 % Platelet Count 63 TH/MM3 Mean Platelet Volume 9.4 FL Neutrophils (%) (Auto) 84.1 % Lymphocytes (%) (Auto) 5.8 % Monocytes (%) (Auto) 8.4 % Eosinophils (%) (Auto) 1.3 % Basophils (%) (Auto) 0.4 % Neutrophils # (Auto) 5.3 TH/MM3 Lymphocytes # (Auto) 0.4 TH/MM3 Monocytes # (Auto) 0.5 TH/MM3 Eosinophils # (Auto) 0.1 TH/MM3 Basophils # (Auto) 0.0 TH/MM3 CBC Comment AUTO DIFF Differential Total Cells 100 Counted Neutrophils % (Manual) 84 % Band Neutrophils % 6 % Lymphocytes % 6 % Monocytes % 2 % Basophils % 1 % Neutrophils # (Manual) 5.7 TH/MM3 Myelocytes 1 % Differential Comment FINAL DIFF MANUAL Platelet Estimate LOW Platelet Morphology Comment NORMAL Sodium Level 136 MEQ/L Potassium Level 5.2 MEQ/L Chloride Level 108 MEQ/L Carbon Dioxide Level 18.2 MEQ/L Anion Gap 10 MEQ/L Blood Urea Nitrogen 17 MG/DL Creatinine 1.34 MG/DL Estimat Glomerular Filtration 40 ML/MIN Rate Random Glucose 320 MG/DL Calcium Level 7.7 MG/DL Total Bilirubin 0.6 MG/DL Aspartate Amino Transf 17 U/L (AST/SGOT) Alanine Aminotransferase 21 U/L (ALT/SGPT) Alkaline Phosphatase 223 U/L Total Protein 7.0 GM/DL Albumin 2.3 GM/DL Vancomycin Level Trough 24.9 MCG/ML Stool C. difficile Toxin (PCR) POSITIVE Stl C. difficile Toxin PRESUMPTIVE Epiderm 027 NEGATIVE Test 02/03/17 21:25 Lactic Acid Level 1.8 mmol/L Objective Remarks GENERAL: No acute distress. SKIN: Erythema and edema on left thigh seen. Improving. HEAD: Atraumatic. Normocephalic. EYES: Pupils equal and round. No scleral icterus. No injection or drainage. ENT: No nasal bleeding or discharge. Mucous membranes pink and moist. NECK: Trachea midline. No JVD. CARDIOVASCULAR: Regular rate and rhythm. RESPIRATORY: No accessory muscle use. Clear to auscultation. Breath sounds equal bilaterally. GASTROINTESTINAL: Abdomen soft, non-tender, nondistended. Hepatic and splenic margins not palpable. MUSCULOSKELETAL: Extremities without clubbing, cyanosis, or edema. No obvious deformities. NEUROLOGICAL: Awake and alert. No obvious cranial nerve deficits. Motor grossly within normal limits. Five out of 5 muscle strength in the arms and legs. Normal speech. PSYCHIATRIC: Appropriate mood and affect; insight and judgment normal. Medications and IVs Current Medications Medications (Trade) Dose Ordered Sig/Lotus Route Start Time Stop Time Status Last Admin (NS Flush) 2 ml UNSCH PRN IV FLUSH 02/01/17 01:30 02/01/17 22:06 (NS Flush) 2 ml BID IV FLUSH 02/01/17 09:00 02/04/17 09:02 (Tylenol) 650 mg Q4H PRN PO 02/01/17 01:30 02/03/17 18:53 (Zofran Inj) 4 mg Q6H PRN IVP 02/01/17 01:30 02/04/17 05:14 (Narcan Inj) 0.4 mg UNSCH PRN IV 02/01/17 01:30 (Meghana-Colace) 1 tab BID PO 02/01/17 09:00 02/03/17 22:02 (Milk Of Magnesia Liq) 30 ml Q12H PRN PO 02/01/17 01:30 (Dulcolax Supp) 10 mg DAILY PRN RECTAL 02/01/17 01:30 (D50w (Vial) Inj) 50 ml UNSCH PRN IV 02/01/17 01:45 Glucagon 1 mg 1 mg UNSCH PRN OTHER 02/01/17 01:45 Pharmacy Profile Note 0 ml @ 0 mls/hr UNSCH OTHER 02/01/17 02:45 Vancomycin HCl 1500 mg/Sodium Chloride 515 ml @ 250 mls/hr Q24H IV 02/02/17 00:00 02/03/17 22:45 Aztreonam 2000 mg/ Sodium Chloride 100 ml @ 200 mls/hr Q6H IV 02/01/17 17:00 02/04/17 11:30 (Flagyl 500 Mg Inj) 100 ml @ 100 mls/hr Q8H IV 02/01/17 16:00 02/04/17 16:44 (Benadryl Inj) 25 mg Q6H PRN IV PUSH 02/01/17 15:45 (Hibiclens 4% Top Soln) 1 applic DAILY TOPICAL 02/01/17 16:45 02/04/17 09:00 (Remeron) 15 mg HS PO 02/02/17 21:00 02/03/17 22:02 (Desyrel) 200 mg HS PO 02/02/17 21:15 02/03/17 22:02 (Levemir Inj) 10 units HS SQ 02/03/17 21:00 02/03/17 22:08 (NovoLIN R INJ) 3 units TIDAC SQ 02/03/17 17:00 02/04/17 11:45 Enalaprilat 0.65 mg 0.65 mg Q8H PRN IV PUSH 02/03/17 16:15 (NS 1000 ml Inj) 1,000 ml @ 84 mls/hr [id number] IV 02/03/17 17:00 02/04/17 03:43 (VANCOMYCIN for oral use only) 500 mg Q6H PO 02/03/17 23:00 02/04/17 16:44 Miscellaneous Information SPECIFIC LAB TO BE KINSEY... ONCE ONCE .XX 02/04/17 23:45 02/04/17 23:46 (Morphine Inj) 3 mg Q3H PRN IV PUSH 02/04/17 18:00 A/P Assessment and Plan 1. Cellulitis/phlegmon on Left Perineal area Left buttock and labia, CT not found Felisha, improving on antibiotics as per ID specialist Doctor Stuart, had Allergic Reaction to Penicillin mild to moderate resolved, on Azactam and Flagyl and Vancomycin. followed by General surgery for probable I and D as needed. 2. CKD III stable 3. DM II insulin dependent, better control continue titration of Insulin. 4. Depression continue Home medicines. 5. Tobacco dependency strongly recommended to stop smoking. 6. Thrombocytopenia Platelet count [address] scan. follow intermittently. 7. Hypertension she has some increased blood pressure now, started on Vasotec. 8. C Diff positive she is already on Flagyl IV and Vancomycin by mouth. DVT prophylaxis with SCDs Discharge Planning Once cleared by ID specialist. Thang Cheema MD Feb 04, 2017 17:48
[2017-02-04 20:00] VITALS: BP 166/72; PULSE 79; RESP 20; TEMP 99.7; O2SAT 100
[2017-02-04] MEDS: MIRTAZAPINE 15 MG TAB PO SCH (20:38)
[2017-02-04] MEDS: traZODone HCL 100 MG TAB PO SCH (20:38)
[2017-02-04] MEDS: INSULIN DETEMIR 100 UNITS/ML VIAL SQ SCH (20:45)
[2017-02-04] MEDS ORDERED: PHARMACY ORDERED LAB ONE (23:45)
[2017-02-05] VITALS (8 sets, daily range): BP systolic 131–181; BP diastolic 63–92; PULSE 70–95; RESP 16–22; TEMP 96.6–99.9; O2SAT 94–99
[2017-02-05] MEDS: metroNIDAZOLE 500 MG INJ 100 ML IV SCH ×3 (00:30→17:33)
[2017-02-05] MEDS: MORPHINE SULFATE 4 MG/ML INJ IV PUSH PRN ×7 (00:34→23:15)
[2017-02-05] MEDS: VANCOMYCIN 500 MG VIAL (FOR ORAL USE ONLY) PO SCH ×5 (01:19→23:16)
[2017-02-05] MEDS: VANCOMYCIN INJ 1,500 MG in SODIUM CHLORID 0.9% 500 ML INJ 500 ML IV SCH (01:19)
[2017-02-05] MEDS: SODIUM CHLOR 0.9% 1000 ML INJ 1,000 ML IV SCH ×2 (04:33→16:40)
[2017-02-05] MEDS: AZTREONAM INJ 2,000 MG in SODIUM CHLORIDE 0.9% INJ 100 ML IV SCH ×4 (04:42→23:16)
[2017-02-05] MEDS: INSULIN NovoLIN REGULAR SUPPLEMENTAL SCALE SQ SCH ×4 (06:21→20:29)
[2017-02-05] MEDS: INSULIN HUMAN REGULAR 1,000 UNITS/10 ML VIAL SQ SCH ×3 (08:00→18:37)
[2017-02-05] MEDS: DOCUSATE SODIUM 50 MG/SENNA 8.6 MG TAB PO SCH ×2 (08:51→21:00)
[2017-02-05] MEDS: SODIUM CHLORIDE 0.9% FLUSH 10 ML FLUSH IV FLUSH SCH ×2 (08:51→23:15)
--- NOTE | 2017-02-05 09:52 | HHI.PR ---
Subjective Subjective Notes persistent left thigh pain, no fevers Objective Vitals/I&O Vital Signs Date Time Temp Pulse Resp B/P Pulse Ox O2 Delivery O2 Flow Rate FiO2 02/05/17 08:58 Room Air 02/05/17 08:00 98.1 70 20 131/69 99 02/04/17 08:00 21 Labs Laboratory Tests Test 02/04/17 02/05/17 23:40 05:23 Vancomycin Level Trough 20.3 Creatinine 1.06 Estimat Glomerular Filtration 53 Rate Date/Time Procedure Status Source Growth 02/03/17 21:25 Aerobic Blood Culture - Preliminary Resulted Blood Peripheral NO GROWTH IN 1 DAY 02/03/17 21:25 Anaerobic Blood Culture - Preliminary Resulted Blood Peripheral NO GROWTH IN 1 DAY Extremities: Other (L thigh, +ttp, erythema, induration ) A/P Assessment and Plan 61 year old female with LEFT thigh, LEFT labia, and LEFT gluteus cellulites -Repeat pelvic CT shows no drainable fluid collection 02/03/17 -Continue antibiotics per ID -Regular diet -Monitor for fevers -Hibiclens showers -Pain control -Continue non operative treatment - pt will likely need surgery in 1-2 days for I and D of abscess Aquilino Pedraza MD Feb 05, 2017 09:52
--- NOTE | 2017-02-05 11:01 | HHI.PR ---
Subjective Remarks This is a 61 year old female patient with a past medical which includes chronic kidney disease stage III, diabetes mellitus insulin-dependent, cirrhosis, depression and tobacco abuse. Patient presented to [facility] emergency department, with complaints of left inner thigh and buttock pain edema and erythema. Patient reports the area began as a small, "cyst," that has gotten more painful and increased in size over the past week. Patient describes the pain as sharp severe and in tears at time of exam. Patient also reports generalized malaise for the past few days with chills and nausea for the past 2 days. Patient denies any specific trauma or events leading to skin irritation. Patient denies any penile numbness, vaginal discharge, bleeding or rectal discharge. Patient also denies fevers vomiting diarrhea constipation chest pain or shortness of breath. Patient reports that she had similar symptoms on the right inner thigh which required surgical intervention in the past. Pelvic CT scan done at [facility] [place] she was left perineal cellulitis with no abscess. 02/03: Seen in her bedroom in the presence of nurse, worsening as per the marked area is smaller than the area or erythema seen on physical exam also the patient complaint of chills, she is afebrile, uncontrolled blood sugar and Hypertension. 02/04: Stable in her bedroom, improving clinically but continue with induration, and may need surgery, as per ID and General Surgery, continue with Pain adjusted medicines. no nausea, vomit, has loose stools with positive C Diff on Vancomycin by mouth and Flagyl IV 02/05: Patient stable in her bedroom, seen in the presence of nurse Miss Person, no nausea, vomit, improved bowel movements. Objective Vital Signs Date Time Temp Pulse Resp B/P Pulse Ox O2 Delivery O2 Flow Rate FiO2 02/05/17 08:58 Room Air 02/05/17 08:00 98.1 70 20 131/69 99 02/05/17 04:00 99.2 80 22 167/77 96 02/05/17 04:00 Room Air 02/05/17 00:00 Room Air 02/05/17 00:00 99.1 71 20 138/64 97 02/04/17 20:00 Room Air 02/04/17 20:00 99.7 79 20 166/72 100 02/04/17 16:00 99.3 84 20 135/89 94 02/04/17 12:00 98.3 80 20 160/81 99 I/O 02/04/17 02/04/17 02/04/17 02/05/17 02/05/17 02/05/17 07:00 15:00 23:00 07:00 15:00 23:00 Intake Total 2322 ml 360 ml 1501 ml 1332 ml Output Total 400 ml Balance 1922 ml 360 ml 1501 ml 1332 ml Intake Oral 120 ml 360 ml 240 ml 240 ml IV Total 2202 ml 1261 ml 1092 ml Output Urine Total 400 ml # Voids 2 2 4 # Bowel Movements 0 2 Result Diagram: 02/03/17 1723 02/05/17 0523 Imaging Last Impressions Abdomen/Pelvis CT 02/03/17 0000 Signed Impressions: Service Date/Time: Friday, February 03, 2017 20:35 - CONCLUSION: 1. There is extensive subcutaneous edema in the proximal left thigh, greater than on the right side which may represent a cellulitis in addition to anasarca. No loculated fluid in the proximal thigh to suggest abscess. 2. Liver cirrhosis with moderate ascites and varices especially around the splenic hilum. Mild anasarca. 3. Splenomegaly to at least 22 cm. 4. Numerous layering calcified gallstones or sludge in the gallbladder 5. Fat and fluid containing ventral hernia measuring up to 6.4 cm in diameter. . Alejandro Perea MD Procedures No procedures performed. Other Results Laboratory Tests Test 02/03/17 02/03/17 02/03/17 02/03/17 01:20 07:58 17:23 18:00 Urine Color YELLOW Urine Turbidity HAZY Urine pH 6.0 Urine Specific [place] 1.021 Urine Protein 300 mg/dL Urine Glucose (UA) 300 mg/dL Urine Ketones NEG mg/dL Urine Occult Blood MOD Urine Nitrite NEG Urine Bilirubin NEG Urine Urobilinogen LESS THAN 2.0 MG/DL Urine Leukocyte Esterase NEG Urine RBC 63 /hpf Urine WBC 3 /hpf Urine Squamous Epithelial 5 /hpf Cells Urine Bacteria RARE /hpf Microscopic Urinalysis Comment Protein Corrected Calcium 8.1 MG/DL White Blood Count 6.3 TH/MM3 Red Blood Count 3.75 MIL/MM3 Hemoglobin 11.1 GM/DL Hematocrit 33.5 % Mean Corpuscular Volume 89.3 FL Mean Corpuscular Hemoglobin 29.6 PG Mean Corpuscular Hemoglobin 33.2 % Concent Red Cell Distribution Width 13.1 % Platelet Count 63 TH/MM3 Mean Platelet Volume 9.4 FL Neutrophils (%) (Auto) 84.1 % Lymphocytes (%) (Auto) 5.8 % Monocytes (%) (Auto) 8.4 % Eosinophils (%) (Auto) 1.3 % Basophils (%) (Auto) 0.4 % Neutrophils # (Auto) 5.3 TH/MM3 Lymphocytes # (Auto) 0.4 TH/MM3 Monocytes # (Auto) 0.5 TH/MM3 Eosinophils # (Auto) 0.1 TH/MM3 Basophils # (Auto) 0.0 TH/MM3 CBC Comment AUTO DIFF Differential Total Cells 100 Counted Neutrophils % (Manual) 84 % Band Neutrophils % 6 % Lymphocytes % 6 % Monocytes % 2 % Basophils % 1 % Neutrophils # (Manual) 5.7 TH/MM3 Myelocytes 1 % Differential Comment FINAL DIFF MANUAL Platelet Estimate LOW Platelet Morphology Comment NORMAL Sodium Level 136 MEQ/L Potassium Level 5.2 MEQ/L Chloride Level 108 MEQ/L Carbon Dioxide Level 18.2 MEQ/L Anion Gap 10 MEQ/L Blood Urea Nitrogen 17 MG/DL Random Glucose 320 MG/DL Calcium Level 7.7 MG/DL Total Bilirubin 0.6 MG/DL Aspartate Amino Transf 17 U/L (AST/SGOT) Alanine Aminotransferase 21 U/L (ALT/SGPT) Alkaline Phosphatase 223 U/L Total Protein 7.0 GM/DL Albumin 2.3 GM/DL Stool C. difficile Toxin (PCR) POSITIVE Stl C. difficile Toxin PRESUMPTIVE Epiderm 027 NEGATIVE Test 02/03/17 02/04/17 02/05/17 21:25 23:40 05:23 Lactic Acid Level 1.8 mmol/L Vancomycin Level Trough 20.3 MCG/ML Creatinine 1.06 MG/DL Estimat Glomerular Filtration 53 ML/MIN Rate Objective Remarks GENERAL: No acute distress. SKIN: Mild Erythema, induration on the left inner thigh and buttock. HEAD: Atraumatic. Normocephalic. EYES: Pupils equal and round. No scleral icterus. No injection or drainage. ENT: No nasal bleeding or discharge. Mucous membranes pink and moist. NECK: Trachea midline. No JVD. CARDIOVASCULAR: Regular rate and rhythm. RESPIRATORY: No accessory muscle use. Clear to auscultation. Breath sounds equal bilaterally. GASTROINTESTINAL: Abdomen soft, non-tender, nondistended. Hepatic and splenic margins not palpable. MUSCULOSKELETAL: Extremities without clubbing, cyanosis, or edema. No obvious deformities. NEUROLOGICAL: Awake and alert. No obvious cranial nerve deficits. PSYCHIATRIC: Appropriate mood and affect; insight and judgment normal. Medications and IVs Current Medications Medications (Trade) Dose Ordered Sig/Lotus Route Start Time Stop Time Status Last Admin (NS Flush) 2 ml UNSCH PRN IV FLUSH 02/01/17 01:30 02/01/17 22:06 (NS Flush) 2 ml BID IV FLUSH 02/01/17 09:00 02/04/17 20:40 (Tylenol) 650 mg Q4H PRN PO 02/01/17 01:30 02/03/17 18:53 (Zofran Inj) 4 mg Q6H PRN IVP 02/01/17 01:30 02/04/17 05:14 (Narcan Inj) 0.4 mg UNSCH PRN IV 02/01/17 01:30 (Meghana-Colace) 1 tab BID PO 02/01/17 09:00 02/03/17 22:02 (Milk Of Magnesia Liq) 30 ml Q12H PRN PO 02/01/17 01:30 (Dulcolax Supp) 10 mg DAILY PRN RECTAL 02/01/17 01:30 (D50w (Vial) Inj) 50 ml UNSCH PRN IV 02/01/17 01:45 Glucagon 1 mg 1 mg UNSCH PRN OTHER 02/01/17 01:45 Pharmacy Profile Note 0 ml @ 0 mls/hr UNSCH OTHER 02/01/17 02:45 Aztreonam 2000 mg/ Sodium Chloride 100 ml @ 200 mls/hr Q6H IV 02/01/17 17:00 02/05/17 04:42 (Flagyl 500 Mg Inj) 100 ml @ 100 mls/hr Q8H IV 02/01/17 16:00 02/05/17 08:51 (Benadryl Inj) 25 mg Q6H PRN IV PUSH 02/01/17 15:45 (Hibiclens 4% Top Soln) 1 applic DAILY TOPICAL 02/01/17 16:45 02/04/17 09:00 (Remeron) 15 mg HS PO 02/02/17 21:00 02/04/17 20:38 (Desyrel) 200 mg HS PO 02/02/17 21:15 02/04/17 20:38 (Levemir Inj) 10 units HS SQ 02/03/17 21:00 02/04/17 20:45 (NovoLIN R INJ) 3 units TIDAC SQ 02/03/17 17:00 02/04/17 18:00 Enalaprilat 0.65 mg 0.65 mg Q8H PRN IV PUSH 02/03/17 16:15 (NS 1000 ml Inj) 1,000 ml @ 84 mls/hr [id number] IV 02/03/17 17:00 02/05/17 04:33 (VANCOMYCIN for oral use only) 500 mg Q6H PO 02/03/17 23:00 02/05/17 04:32 Morphine Sulfate 3 mg 3 mg Q3H PRN IV PUSH 02/04/17 18:00 02/05/17 08:50 (Vancomycin Inj/ NS 250 ml Inj) 262.5 ml @ 250 mls/hr Q24H IV 02/06/17 03:00 Miscellaneous Information SPECIFIC LAB TO BE DRAWN:VANCOMY... ONCE ONCE .XX 02/08/17 02:45 02/08/17 02:46 A/P Assessment and Plan 1. Cellulitis/phlegmon on Left Perineal area Left buttock and labia, CT not found Felisha, improving on antibiotics as per ID specialist Doctor Stuart, had Allergic Reaction to Penicillin mild to moderate resolved, on Azactam and Flagyl and Vancomycin. followed by General surgery for probable I and D as needed. 2. CKD III stable 3. DM II insulin dependent, better control continue titration of Insulin. 4. Depression continue Home medicines. 5. Tobacco dependency strongly recommended to stop smoking. 6. Thrombocytopenia Platelet count [address] scan. follow intermittently. 7. Hypertension she has some increased blood pressure now, started on Vasotec. 8. C Diff positive she is already on Flagyl IV and Vancomycin by mouth. DVT prophylaxis with SCDs No changes to anterior assessment follow laboratory in am tomorrow Discussed with patient and all questions answered to the best of my abilities. Discussed with nurse Miss Person appreciated input Discharge Planning Once cleared by ID specialist. Thang Cheema MD Feb 05, 2017 11:01
[2017-02-05] MEDS: CHLORHEXIDINE GLUCONATE 4% SOLN 120 ML BTL TOPICAL SCH (12:18)
[2017-02-05] MEDS: MIRTAZAPINE 15 MG TAB PO SCH (20:27)
[2017-02-05] MEDS: traZODone HCL 100 MG TAB PO SCH (20:27)
[2017-02-05] MEDS: INSULIN DETEMIR 100 UNITS/ML VIAL SQ SCH (20:28)
[2017-02-06] VITALS (8 sets, daily range): BP systolic 125–161; BP diastolic 58–77; PULSE 62–87; RESP 12–20; TEMP 95.6–98; O2SAT 93–100
[2017-02-06] MEDS: metroNIDAZOLE 500 MG INJ 100 ML IV SCH ×3 (00:20→16:25)
[2017-02-06] MEDS: VANCOMYCIN INJ 1,250 MG in SODIUM CHLOR 0.9% 250 ML INJ 250 ML IV SCH (02:09)
[2017-02-06] MEDS: AZTREONAM INJ 2,000 MG in SODIUM CHLORIDE 0.9% INJ 100 ML IV SCH ×3 (03:57→17:34)
[2017-02-06] MEDS: VANCOMYCIN 500 MG VIAL (FOR ORAL USE ONLY) PO SCH ×3 (03:57→17:34)
[2017-02-06] MEDS: MORPHINE SULFATE 4 MG/ML INJ IV PUSH PRN ×5 (03:58→19:56)
[2017-02-06] MEDS: SODIUM CHLOR 0.9% 1000 ML INJ 1,000 ML IV SCH ×2 (04:35→16:30)
[2017-02-06] MEDS: INSULIN NovoLIN REGULAR SUPPLEMENTAL SCALE SQ SCH ×4 (06:23→21:39)
[2017-02-06] MEDS: INSULIN HUMAN REGULAR 1,000 UNITS/10 ML VIAL SQ SCH ×3 (08:00→16:30)
[2017-02-06 08:02] LABS: AUTOMATED NEUTROPHIL # 2.7 TH/MM3 (1.8-7.7); BASOPHIL % 0.7 % (0.0-2.0); EOSINOPHIL # 0.1 TH/MM3 (0-0.4); EOSINOPHIL % 2.3 % (0.0-4.0); HEMATOCRIT 29.5 % (35.0-46.0); LYMPH % 19.1 % (9.0-44.0); LYMPHOCYTE # 0.8 TH/MM3 (1.0-4.8); MEAN CELL VOLUME 88.6 FL (80.0-100.0); MEAN CORPUSCULAR HEMOGLOBIN 30.4 PG (27.0-34.0); MEAN CORPUSCULAR HGB CONC 34.3 % (32.0-36.0); MONO % 10.2 % (0.0-8.0); NEUT % 67.7 % (16.0-70.0); PLATELET COUNT 69 TH/MM3 (150-450); RED BLOOD COUNT 3.33 MIL/MM3 (4.00-5.30); RED CELL DISTRIBUTION WIDTH 13.3 % (11.6-17.2)
[2017-02-06 08:04] LABS: HEMO FLAGS AUTO DIFF
[2017-02-06 08:24] LABS: BICARBONATE 19.1 MEQ/L (21.0-32.0); MAGNESIUM 1.3 MG/DL (1.5-2.5); POTASSIUM 4.8 MEQ/L (3.5-5.1)
[2017-02-06] MEDS: DOCUSATE SODIUM 50 MG/SENNA 8.6 MG TAB PO SCH ×2 (09:00→21:30)
[2017-02-06] MEDS: SODIUM CHLORIDE 0.9% FLUSH 10 ML FLUSH IV FLUSH SCH ×2 (09:00→21:30)
[2017-02-06] MEDS: CHLORHEXIDINE GLUCONATE 4% SOLN 120 ML BTL TOPICAL SCH (09:00)
--- NOTE | 2017-02-06 09:00 | HHI.PR ---
Subjective Remarks This is a 61 year old female patient with a past medical which includes chronic kidney disease stage III, diabetes mellitus insulin-dependent, cirrhosis, depression and tobacco abuse. Patient presented to [facility] emergency department, with complaints of left inner thigh and buttock pain edema and erythema. Patient reports the area began as a small, "cyst," that has gotten more painful and increased in size over the past week. Patient describes the pain as sharp severe and in tears at time of exam. Patient also reports generalized malaise for the past few days with chills and nausea for the past 2 days. Patient denies any specific trauma or events leading to skin irritation. Patient denies any penile numbness, vaginal discharge, bleeding or rectal discharge. Patient also denies fevers vomiting diarrhea constipation chest pain or shortness of breath. Patient reports that she had similar symptoms on the right inner thigh which required surgical intervention in the past. Pelvic CT scan done at [facility] [place] she was left perineal cellulitis with no abscess. 02/03: Seen in her bedroom in the presence of nurse, worsening as per the marked area is smaller than the area or erythema seen on physical exam also the patient complaint of chills, she is afebrile, uncontrolled blood sugar and Hypertension. 02/04: Stable in her bedroom, improving clinically but continue with induration, and may need surgery, as per ID and General Surgery, continue with Pain adjusted medicines. no nausea, vomit, has loose stools with positive C Diff on Vancomycin by mouth and Flagyl IV 02/05: Patient stable in her bedroom, seen in the presence of nurse Miss Person, no nausea, vomit, improved bowel movements. 02/06: Seen in her bedroom, discussed with nurse Miss Chaidez, no surgical management as per General Surgery, no nausea, vomit or diarrhea. Objective Vital Signs Date Time Temp Pulse Resp B/P Pulse Ox O2 Delivery O2 Flow Rate FiO2 02/06/17 04:59 Room Air 02/06/17 04:00 96.8 62 18 125/58 96 02/06/17 00:00 96.0 70 20 131/61 95 02/05/17 20:00 98.3 87 18 131/63 94 02/05/17 20:00 Room Air 02/05/17 18:10 99.9 92 161/74 02/05/17 16:00 99.9 90 20 181/91 99 02/05/17 13:54 96.6 16 159/90 97 02/05/17 12:00 97.3 95 20 177/92 I/O 02/05/17 02/05/17 02/05/17 02/06/17 02/06/17 02/06/17 07:00 15:00 23:00 07:00 15:00 23:00 Intake Total 1332 ml 200 ml 1788 ml 737 ml Balance 1332 ml 200 ml 1788 ml 737 ml Intake Oral 240 ml 200 ml 360 ml IV Total 1092 ml 1428 ml 737 ml # Voids 4 2 4 # Bowel Movements 2 3 Result Diagram: 02/06/17 0714 02/06/1714 Imaging Last Impressions Abdomen/Pelvis CT 02/03/17 0000 Signed Impressions: Service Date/Time: Friday, February 03, 2017 20:35 - CONCLUSION: 1. There is extensive subcutaneous edema in the proximal left thigh, greater than on the right side which may represent a cellulitis in addition to anasarca. No loculated fluid in the proximal thigh to suggest abscess. 2. Liver cirrhosis with moderate ascites and varices especially around the splenic hilum. Mild anasarca. 3. Splenomegaly to at least 22 cm. 4. Numerous layering calcified gallstones or sludge in the gallbladder 5. Fat and fluid containing ventral hernia measuring up to 6.4 cm in diameter. . Alejandro Perea MD Procedures No procedures performed. Other Results Laboratory Tests Test 02/03/17 02/03/17 02/03/17 02/03/17 01:20 07:58 17:23 18:00 Urine Color YELLOW Urine Turbidity HAZY Urine pH 6.0 Urine Specific [place] 1.021 Urine Protein 300 mg/dL Urine Glucose (UA) 300 mg/dL Urine Ketones NEG mg/dL Urine Occult Blood MOD Urine Nitrite NEG Urine Bilirubin NEG Urine Urobilinogen LESS THAN 2.0 MG/DL Urine Leukocyte Esterase NEG Urine RBC 63 /hpf Urine WBC 3 /hpf Urine Squamous Epithelial 5 /hpf Cells Urine Bacteria RARE /hpf Microscopic Urinalysis Comment Protein Corrected Calcium 8.1 MG/DL Differential Total Cells 100 Counted Neutrophils % (Manual) 84 % Band Neutrophils % 6 % Lymphocytes % 6 % Monocytes % 2 % Basophils % 1 % Neutrophils # (Manual) 5.7 TH/MM3 Myelocytes 1 % Differential Comment FINAL DIFF MANUAL Platelet Estimate LOW Platelet Morphology Comment NORMAL Total Bilirubin 0.6 MG/DL Aspartate Amino Transf 17 U/L (AST/SGOT) Alanine Aminotransferase 21 U/L (ALT/SGPT) Alkaline Phosphatase 223 U/L Total Protein 7.0 GM/DL Albumin 2.3 GM/DL Stool C. difficile Toxin (PCR) POSITIVE Stl C. difficile Toxin PRESUMPTIVE Epiderm 027 NEGATIVE Test 02/03/17 02/04/17 02/06/17 21:25 23:40 07:14 Lactic Acid Level 1.8 mmol/L Vancomycin Level Trough 20.3 MCG/ML White Blood Count 4.0 TH/MM3 Red Blood Count 3.33 MIL/MM3 Hemoglobin 10.1 GM/DL Hematocrit 29.5 % Mean Corpuscular Volume 88.6 FL Mean Corpuscular Hemoglobin 30.4 PG Mean Corpuscular Hemoglobin 34.3 % Concent Red Cell Distribution Width 13.3 % Platelet Count 69 TH/MM3 Mean Platelet Volume 8.9 FL Neutrophils (%) (Auto) 67.7 % Lymphocytes (%) (Auto) 19.1 % Monocytes (%) (Auto) 10.2 % Eosinophils (%) (Auto) 2.3 % Basophils (%) (Auto) 0.7 % Neutrophils # (Auto) 2.7 TH/MM3 Lymphocytes # (Auto) 0.8 TH/MM3 Monocytes # (Auto) 0.4 TH/MM3 Eosinophils # (Auto) 0.1 TH/MM3 Basophils # (Auto) 0.0 TH/MM3 CBC Comment AUTO DIFF Sodium Level 142 MEQ/L Potassium Level 4.8 MEQ/L Chloride Level 114 MEQ/L Carbon Dioxide Level 19.1 MEQ/L Anion Gap 9 MEQ/L Blood Urea Nitrogen 20 MG/DL Creatinine 1.08 MG/DL Estimat Glomerular Filtration 52 ML/MIN Rate Random Glucose 110 MG/DL Calcium Level 7.6 MG/DL Magnesium Level 1.3 MG/DL Objective Remarks GENERAL: No acute distress. SKIN: Mild Erythema, induration on the left inner thigh and buttock. has drainage do not see the area of drainage. HEAD: Atraumatic. Normocephalic. EYES: Pupils equal and round. No scleral icterus. No injection or drainage. ENT: No nasal bleeding or discharge. Mucous membranes pink and moist. NECK: Trachea midline. No JVD. CARDIOVASCULAR: Regular rate and rhythm. RESPIRATORY: No accessory muscle use. Clear to auscultation. Breath sounds equal bilaterally. GASTROINTESTINAL: Abdomen soft, non-tender, nondistended. Hepatic and splenic margins not palpable. MUSCULOSKELETAL: Extremities without clubbing, cyanosis, or edema. No obvious deformities. NEUROLOGICAL: Awake and alert. No obvious cranial nerve deficits. PSYCHIATRIC: Appropriate mood and affect; insight and judgment normal. Medications and IVs Current Medications Medications (Trade) Dose Ordered Sig/Lotus Route Start Time Stop Time Status Last Admin (NS Flush) 2 ml UNSCH PRN IV FLUSH 02/01/17 01:30 02/01/17 22:06 (NS Flush) 2 ml BID IV FLUSH 02/01/17 09:00 02/05/17 23:15 (Tylenol) 650 mg Q4H PRN PO 02/01/17 01:30 02/03/17 18:53 (Zofran Inj) 4 mg Q6H PRN IVP 02/01/17 01:30 02/04/17 05:14 (Narcan Inj) 0.4 mg UNSCH PRN IV 02/01/17 01:30 (Meghana-Colace) 1 tab BID PO 02/01/17 09:00 02/03/17 22:02 (Milk Of Magnesia Liq) 30 ml Q12H PRN PO 02/01/17 01:30 (Dulcolax Supp) 10 mg DAILY PRN RECTAL 02/01/17 01:30 (D50w (Vial) Inj) 50 ml UNSCH PRN IV 02/01/17 01:45 Glucagon 1 mg 1 mg UNSCH PRN OTHER 02/01/17 01:45 Pharmacy Profile Note 0 ml @ 0 mls/hr UNSCH OTHER 02/01/17 02:45 Aztreonam 2000 mg/ Sodium Chloride 100 ml @ 200 mls/hr Q6H IV 02/01/17 17:00 02/06/17 03:57 (Flagyl 500 Mg Inj) 100 ml @ 100 mls/hr Q8H IV 02/01/17 16:00 02/06/17 00:20 (Benadryl Inj) 25 mg Q6H PRN IV PUSH 02/01/17 15:45 (Hibiclens 4% Top Soln) 1 applic DAILY TOPICAL 02/01/17 16:45 02/05/17 12:18 (Remeron) 15 mg HS PO 02/02/17 21:00 02/05/17 20:27 (Desyrel) 200 mg HS PO 02/02/17 21:15 02/05/17 20:27 (Levemir Inj) 10 units HS SQ 02/03/17 21:00 02/05/17 20:28 (NovoLIN R INJ) 3 units TIDAC SQ 02/03/17 17:00 02/05/17 18:37 Enalaprilat 0.65 mg 0.65 mg Q8H PRN IV PUSH 02/03/17 16:15 02/05/17 16:44 (NS 1000 ml Inj) 1,000 ml @ 84 mls/hr [id number] IV 02/03/17 17:00 02/05/17 16:40 (VANCOMYCIN for oral use only) 500 mg Q6H PO 02/03/17 23:00 02/06/17 03:57 Morphine Sulfate 3 mg 3 mg Q3H PRN IV PUSH 02/04/17 18:00 02/06/17 03:58 (Vancomycin Inj/ NS 250 ml Inj) 262.5 ml @ 250 mls/hr Q24H IV 02/06/17 03:00 02/06/17 02:09 Miscellaneous Information SPECIFIC LAB TO BE DRAWN:VANCOMY... ONCE ONCE .XX 02/08/17 02:45 02/08/17 02:46 A/P Assessment and Plan 1. Cellulitis/phlegmon on Left Perineal area Left buttock and labia, CT not found Felisha, improving on antibiotics as per ID specialist Doctor Stuart, had Allergic Reaction to Penicillin mild to moderate resolved, on Azactam and Flagyl and Vancomycin. followed by General surgery for probable I and D as needed. culture made of the area of drainage as per ID specialist. 2. CKD III stable 3. DM II insulin dependent, better control continue titration of Insulin. 4. Depression continue Home medicines. 5. Tobacco dependency strongly recommended to stop smoking. 6. Thrombocytopenia Platelet count [address] scan. follow intermittently. 7. Hypertension she has some increased blood pressure now, started on Vasotec. 8. C Diff positive she is already on Flagyl IV and Vancomycin by mouth. 9. Hypomagnesemia replaced and following. DVT prophylaxis with SCDs No changes to anterior assessment follow laboratory in am tomorrow Discussed with patient and all questions answered to the best of my abilities. Discussed with nurse Miss Person appreciated input Discharge Planning Once cleared by ID specialist. Thang Cheema MD Feb 06, 2017 09:00
[2017-02-06 09:04] LABS: PLATELET ESTIMATE SMEAR LOW (NORMAL); PLATELET MORPHOLOGY NORMAL (NORMAL); SCAN/DIFF AUTO DIFF CONFIRMED
[2017-02-06] MEDS: MAGNESIUM SULFATE 1 GM PREMIX 100 ML IV SCH ×2 (09:58→12:35)
--- NOTE | 2017-02-06 13:21 | HHI.IDPN ---
Subjective Subjective Remarks Diarrhea is resolved but co RUQ pain states she started to drian some pus fro L buttock afebrile today yday low grade fever BC remain negative @ 3 days Antibiotics azactam flagyl vanco iv vanco po Allergies: Coded Allergies: Egg Allergy (Verified Allergy, Unknown, 01/31/17) Levaquin (Verified Allergy, Unknown, 01/31/17) [place] (Verified Allergy, Unknown, 01/31/17) [place] (Verified Allergy, Unknown, 01/31/17) Penicillin (Verified Allergy, Unknown, 01/31/17) [place] (Verified Allergy, Unknown, 01/31/17) Objective . Vital Signs Date Time Temp Pulse Resp B/P Pulse Ox O2 Delivery O2 Flow Rate FiO2 02/06/17 08:00 Room Air 02/06/17 08:00 95.6 67 20 134/65 98 02/06/17 04:59 Room Air 02/06/17 04:00 96.8 62 18 125/58 96 02/06/17 00:00 96.0 70 20 131/61 95 02/05/17 20:00 98.3 87 18 131/63 94 02/05/17 20:00 Room Air 02/05/17 18:10 99.9 92 161/74 02/05/17 16:00 99.9 90 20 181/91 99 02/05/17 13:54 96.6 16 159/90 97 02/05/17 02/05/17 02/06/17 15:00 23:00 07:00 Intake Total 200 ml 1788 ml 737 ml Balance 200 ml 1788 ml 737 ml Intake Oral 200 ml 360 ml IV Total 1428 ml 737 ml # Voids 2 4 # Bowel Movements 2 3 . Laboratory Tests Test 02/06/17 07:14 White Blood Count 4.0 TH/MM3 Red Blood Count 3.33 MIL/MM3 Hemoglobin 10.1 GM/DL Hematocrit 29.5 % Mean Corpuscular Volume 88.6 FL Mean Corpuscular Hemoglobin 30.4 PG Mean Corpuscular Hemoglobin 34.3 % Concent Red Cell Distribution Width 13.3 % Platelet Count 69 TH/MM3 Mean Platelet Volume 8.9 FL Neutrophils (%) (Auto) 67.7 % Lymphocytes (%) (Auto) 19.1 % Monocytes (%) (Auto) 10.2 % Eosinophils (%) (Auto) 2.3 % Basophils (%) (Auto) 0.7 % Neutrophils # (Auto) 2.7 TH/MM3 Lymphocytes # (Auto) 0.8 TH/MM3 Monocytes # (Auto) 0.4 TH/MM3 Eosinophils # (Auto) 0.1 TH/MM3 Basophils # (Auto) 0.0 TH/MM3 CBC Comment AUTO DIFF Differential Comment AUTO DIFF CONFIRMED Platelet Estimate LOW Platelet Morphology Comment NORMAL Laboratory Tests Test 02/05/17 02/06/17 05:23 07:14 Creatinine 1.06 MG/DL 1.08 MG/DL Estimat Glomerular Filtration 53 ML/MIN 52 ML/MIN Rate Sodium Level 142 MEQ/L Potassium Level 4.8 MEQ/L Chloride Level 114 MEQ/L Carbon Dioxide Level 19.1 MEQ/L Anion Gap 9 MEQ/L Blood Urea Nitrogen 20 MG/DL Random Glucose 110 MG/DL Calcium Level 7.6 MG/DL Magnesium Level 1.3 MG/DL Microbiology Date/Time Procedure Status Source Growth 02/03/17 17:23 Aerobic Blood Culture - Preliminary Resulted Blood Peripheral NO GROWTH IN 3 DAYS 02/03/17 17:23 Anaerobic Blood Culture - Preliminary Resulted Blood Peripheral NO GROWTH IN 3 DAYS 02/03/17 21:25 Aerobic Blood Culture - Preliminary Resulted Blood Peripheral NO GROWTH IN 3 DAYS 02/03/17 21:25 Anaerobic Blood Culture - Preliminary Resulted Blood Peripheral NO GROWTH IN 3 DAYS Imaging Last Impressions Abdomen/Pelvis CT 02/03/17 0000 Signed Impressions: Service Date/Time: Friday, February 03, 2017 20:35 - CONCLUSION: 1. There is extensive subcutaneous edema in the proximal left thigh, greater than on the right side which may represent a cellulitis in addition to anasarca. No loculated fluid in the proximal thigh to suggest abscess. 2. Liver cirrhosis with moderate ascites and varices especially around the splenic hilum. Mild anasarca. 3. Splenomegaly to at least 22 cm. 4. Numerous layering calcified gallstones or sludge in the gallbladder 5. Fat and fluid containing ventral hernia measuring up to 6.4 cm in diameter. . Alejandro Perea MD Physical Exam CONSTITUTIONAL/GENERAL: This is an obese female patient, in no apparent distress. looks better TUBES/LINES/DRAINS: SKIN: No jaundice, rash resolved STATUS LOCALIS: Perinral area on the L and lower buttock quite tender to palpation, indurated , no fluctuance edema and erythema of L thigh, perineal area L labia nad L buttock - improving no crepitus + fluctuance + small open wound on L buttock draining very minuscule amount of thick salmon colored odorless pus HEAD: Atraumatic. Normocephalic. EYES: Pupils equal and round and reactive. Extraocular motions intact. No scleral icterus. No injection or drainage. Fundi not examined. CARDIOVASCULAR: Regular rate and rhythm without murmurs, gallops, or rubs. No JVD. Peripheral pulses symmetric. RESPIRATORY/CHEST: Symmetric, unlabored respirations. Clear to auscultation. Breath sounds equal bilaterally. No wheezes, rales, or rhonchi. GASTROINTESTINAL: Abdomen soft, obese + mildly- to moderately tende to palpation RUQ, mildly distended. No hepato-splenomegaly, or palpable masses. No guarding. Bowel sounds present. GENITOURINARY: Without palpable bladder distension. MUSCULOSKELETAL: Extremities without clubbing, cyanosis, or edema. NEUROLOGICAL: Awake and alert. non focal PSYCHIATRIC: No obvious anxiety/depression. no apparent hallucinations or other psychotic thought process. Assessment & Plan Remarks cellulitis/phegmone, now abscess clinically of L perineal area L buttock and L labia , CT not cw Felisha - xclinically improving with broad spectrum abx + fluctuance on physical exam to suggest the abscess - probably will bneed surgical debridement if cont to worsen - Gen sx ff, no surgical intervention at this point Multiple medical problems: DM cirrhosis, tob+ Allergic reaction to PCN, mild to moderate: resolved C diff - new problem High grade fever, sepsis - ? C.diff and L thigh/buttock SSTI contributing clinically improved RUQ pain; [address] not sugg of gallbladder dx - cont azactam, IV vanco, flagyl - agree with plan for I+D now when pt has clinically abscess - cont oral vanco for C.diff - chk LFTs - Zee Davidson MD Feb 06, 2017 13:21
--- NOTE | 2017-02-06 15:17 | HHI.PR ---
Subjective Subjective Notes DAILY PROGRESS NOTE FOR SURGICAL ATTENDING, DR. ROBERTO STYLES Resting in bed Reports drainage from inner LEFT thigh overnight Objective Vitals/I&O Vital Signs Date Time Temp Pulse Resp B/P Pulse Ox O2 Delivery O2 Flow Rate FiO2 02/06/17 08:00 Room Air 02/06/17 08:00 95.6 67 20 134/65 98 02/04/17 08:00 21 Labs Laboratory Tests Test 02/06/17 07:14 White Blood Count 4.0 Red Blood Count 3.33 Hemoglobin 10.1 Hematocrit 29.5 Mean Corpuscular Volume 88.6 Mean Corpuscular Hemoglobin 30.4 Mean Corpuscular Hemoglobin 34.3 Concent Red Cell Distribution Width 13.3 Platelet Count 69 Mean Platelet Volume 8.9 Neutrophils (%) (Auto) 67.7 Lymphocytes (%) (Auto) 19.1 Monocytes (%) (Auto) 10.2 Eosinophils (%) (Auto) 2.3 Basophils (%) (Auto) 0.7 Neutrophils # (Auto) 2.7 Lymphocytes # (Auto) 0.8 Monocytes # (Auto) 0.4 Eosinophils # (Auto) 0.1 Basophils # (Auto) 0.0 CBC Comment AUTO DIFF Differential Comment AUTO DIFF CONFIRMED Platelet Estimate LOW Platelet Morphology Comment NORMAL Sodium Level 142 Potassium Level 4.8 Chloride Level 114 Carbon Dioxide Level 19.1 Anion Gap 9 Blood Urea Nitrogen 20 Creatinine 1.08 Estimat Glomerular Filtration 52 Rate Random Glucose 110 Calcium Level 7.6 Magnesium Level 1.3 Date/Time Procedure Status Source Growth 02/06/17 13:30 Gram Stain Received Wound Buttock Pending 02/06/17 13:30 Wound Culture Received Wound Buttock Pending 02/03/17 21:25 Aerobic Blood Culture - Preliminary Resulted Blood Peripheral NO GROWTH IN 3 DAYS 02/03/17 21:25 Anaerobic Blood Culture - Preliminary Resulted Blood Peripheral NO GROWTH IN 3 DAYS Radiology Last Impressions Abdomen/Pelvis CT 02/03/17 0000 Signed Impressions: Service Date/Time: Friday, February 03, 2017 20:35 - CONCLUSION: 1. There is extensive subcutaneous edema in the proximal left thigh, greater than on the right side which may represent a cellulitis in addition to anasarca. No loculated fluid in the proximal thigh to suggest abscess. 2. Liver cirrhosis with moderate ascites and varices especially around the splenic hilum. Mild anasarca. 3. Splenomegaly to at least 22 cm. 4. Numerous layering calcified gallstones or sludge in the gallbladder 5. Fat and fluid containing ventral hernia measuring up to 6.4 cm in diameter. . Roberto Perea MD Cardiovascular: Regular Lungs: Clear Abdomen: Non-distended, Non-tender Extremities: Other (see below) Narrative Exam LEFT thigh; LEFT labia; LEFT buttocks----- erythema decreased; cellulitic skin changes do not come to the markings made by RN; slight increase in tenderness in LEFT inner thigh A/P Problem List: (1) Cellulitis (2) Thrombocytopenia (3) DM (diabetes mellitus) Assessment and Plan 61 year old female with LEFT thigh, LEFT labia, and LEFT gluteus cellulites -CT reviewed -Continue antibiotics per ID---drainage has been cultured -Regular diet -Monitor for fevers -Hibiclens showers -Pain control -Continue non operative treatment; may require operative intervention in the next days Attending Statement NOTE FOR SURGICAL ATTENDING, DR. ROEBRTO STYLES I agree with above assessment and plan. The exam, history, and the medical decision-making described in the above note were completed with the assistance of the mid-level provider. I reviewed and agree with the findings presented. I attest that I had a [id number] encounter with the patient on the same day, and personally performed and documented my assessment and findings in the medical record. Patient complains of bone pain because the beds to hard Patient has some family member on speaker phone Patient examined the bedside Fullness in the posterior thigh or pinpoint erythema I was attempting to tell her that she may require surgery if this does become come to a head with there is a drainable fluid collection. At this point with 2 CT scans and numerous examinations showing only cellulitis. I was attempting to describe the possibility of developing an abscess requiring surgical intervention During my examination and discussion the patient and the individual on the phone started questioning the plan After some discussion they wanted a second opinion and a new surgeon She wants to "sign out of the hospital and go somewhere else" The following services were provided during this hospital visit: Chart data review, vital sign assessments/reviewing monitor data Review of consultations notes if present. Medication orders/review and/or management Ordering and/or reviewing lab tests Ordering and/or interpreting/reviewing x-rays and/or diagnostic studies Care of the patient and discussion of the patient with the care team Documentation time To help prompt me to consider important information that might be impacting today's encounter and assessment, information from prior notes written by myself or my colleagues may have been "brought forward/copy and pasted" into today's note. Suzette Hoang Feb 06, 2017 15:17 Roberto Styles MD Feb 06, 2017 19:22
[2017-02-06] MEDS: traZODone HCL 100 MG TAB PO SCH (21:30)
[2017-02-06] MEDS: MIRTAZAPINE 15 MG TAB PO SCH (21:31)
[2017-02-06] MEDS: INSULIN DETEMIR 100 UNITS/ML VIAL SQ SCH (21:38)
[2017-02-07] VITALS: BP 128/68; PULSE 77; RESP 18; TEMP 98.4; O2SAT 96
[2017-02-07] MEDS: AZTREONAM INJ 2,000 MG in SODIUM CHLORIDE 0.9% INJ 100 ML IV SCH ×5 (00:44→23:50)
[2017-02-07] MEDS: MORPHINE SULFATE 4 MG/ML INJ IV PUSH PRN ×7 (00:46→23:48)
[2017-02-07] MEDS: VANCOMYCIN 500 MG VIAL (FOR ORAL USE ONLY) PO SCH ×5 (00:50→23:50)
[2017-02-07] MEDS: metroNIDAZOLE 500 MG INJ 100 ML IV SCH ×4 (02:19→23:49)
[2017-02-07] MEDS: VANCOMYCIN INJ 1,250 MG in SODIUM CHLOR 0.9% 250 ML INJ 250 ML IV SCH (04:21)
[2017-02-07] MEDS: SODIUM CHLOR 0.9% 1000 ML INJ 1,000 ML IV SCH ×2 (04:25→16:10)
[2017-02-07 05:28] VITALS: BP 129/77; PULSE 70; RESP 18; TEMP 97.9; O2SAT 96
[2017-02-07 06:08] LABS: AUTOMATED NEUTROPHIL # 3.5 TH/MM3 (1.8-7.7); BASOPHIL % 0.5 % (0.0-2.0); EOSINOPHIL # 0.1 TH/MM3 (0-0.4); HEMATOCRIT 28.9 % (35.0-46.0); LYMPH % 13.1 % (9.0-44.0); LYMPHOCYTE # 0.6 TH/MM3 (1.0-4.8); MEAN CELL VOLUME 89.7 FL (80.0-100.0); MEAN CORPUSCULAR HEMOGLOBIN 30.2 PG (27.0-34.0); MEAN CORPUSCULAR HGB CONC 33.7 % (32.0-36.0); MONO % 9.3 % (0.0-8.0); NEUT % 75.1 % (16.0-70.0); PLATELET COUNT 77 TH/MM3 (150-450); RED BLOOD COUNT 3.22 MIL/MM3 (4.00-5.30); RED CELL DISTRIBUTION WIDTH 13.5 % (11.6-17.2); WHITE BLOOD COUNT 4.6 TH/MM3 (4.0-11.0)
[2017-02-07 06:15] LABS: HEMO FLAGS AUTO DIFF
[2017-02-07 06:22] LABS: BICARBONATE 16.3 MEQ/L (21.0-32.0); CALCIUM-PROTEIN CORRECTED 7.7 MG/DL (8.5-10.1); MAGNESIUM 1.6 MG/DL (1.5-2.5); POTASSIUM 5.2 MEQ/L (3.5-5.1); TOTAL BILIRUBIN ADULT 0.4 MG/DL (0.2-1.0)
[2017-02-07] MEDS: INSULIN NovoLIN REGULAR SUPPLEMENTAL SCALE SQ SCH ×4 (06:52→20:56)
[2017-02-07] MEDS: INSULIN HUMAN REGULAR 1,000 UNITS/10 ML VIAL SQ SCH ×3 (08:00→17:28)
[2017-02-07 08:03] LABS: PLATELET ESTIMATE SMEAR LOW (NORMAL); PLATELET MORPHOLOGY NORMAL (NORMAL); SCAN/DIFF AUTO DIFF CONFIRMED
[2017-02-07 08:07] VITALS: BP 159/70; PULSE 76; RESP 19; TEMP 97.9; O2SAT 95
[2017-02-07] MEDS: SODIUM CHLORIDE 0.9% FLUSH 10 ML FLUSH IV FLUSH SCH ×2 (08:35→20:49)
[2017-02-07] MEDS: DOCUSATE SODIUM 50 MG/SENNA 8.6 MG TAB PO SCH ×2 (08:35→20:52)
[2017-02-07] MEDS: CHLORHEXIDINE GLUCONATE 4% SOLN 120 ML BTL TOPICAL SCH (08:35)
--- NOTE | 2017-02-07 10:56 | HHI.PR ---
Subjective Remarks This is a 61 year old female patient with a past medical which includes chronic kidney disease stage III, diabetes mellitus insulin-dependent, cirrhosis, depression and tobacco abuse. Patient presented to [facility] emergency department, with complaints of left inner thigh and buttock pain edema and erythema. Patient reports the area began as a small, "cyst," that has gotten more painful and increased in size over the past week. Patient describes the pain as sharp severe and in tears at time of exam. Patient also reports generalized malaise for the past few days with chills and nausea for the past 2 days. Patient denies any specific trauma or events leading to skin irritation. Patient denies any penile numbness, vaginal discharge, bleeding or rectal discharge. Patient also denies fevers vomiting diarrhea constipation chest pain or shortness of breath. Patient reports that she had similar symptoms on the right inner thigh which required surgical intervention in the past. Pelvic CT scan done at [facility] [place] she was left perineal cellulitis with no abscess. 02/03: Seen in her bedroom in the presence of nurse, worsening as per the marked area is smaller than the area or erythema seen on physical exam also the patient complaint of chills, she is afebrile, uncontrolled blood sugar and Hypertension. 02/04: Stable in her bedroom, improving clinically but continue with induration, and may need surgery, as per ID and General Surgery, continue with Pain adjusted medicines. no nausea, vomit, has loose stools with positive C Diff on Vancomycin by mouth and Flagyl IV 02/05: Patient stable in her bedroom, seen in the presence of nurse Miss Person, no nausea, vomit, improved bowel movements. 02/06: Seen in her bedroom, discussed with nurse Miss Chaidez, no surgical management as per General Surgery. 02/07; Patient with Pain on palpation on the buttock area and perineal area, definitely will need Surgical management. no nausea, vomit or diarrhea. Objective Vital Signs Date Time Temp Pulse Resp B/P Pulse Ox O2 Delivery O2 Flow Rate FiO2 02/07/17 08:07 97.9 76 19 159/70 95 02/07/17 05:28 97.9 70 18 129/77 96 02/07/17 00:00 Room Air 02/07/17 00:00 98.4 77 18 128/68 96 02/06/17 21:37 98.0 83 20 151/73 99 02/06/17 20:00 Room Air 02/06/17 16:00 Room Air 02/06/17 16:00 96.3 87 20 161/70 93 02/06/17 12:00 Room Air 02/06/17 12:00 95.9 63 20 130/60 96 I/O 02/06/17 02/06/17 02/06/17 02/07/17 02/07/17 02/07/17 07:00 15:00 23:00 07:00 15:00 23:00 Intake Total 737 ml 120 ml 120 ml 0 ml Output Total 300 ml Balance 737 ml 120 ml 120 ml -300 ml Intake Oral 120 ml 120 ml 0 ml IV Total 737 ml Output Urine Total 300 ml # Voids 3 4 # Bowel Movements 3 0 0 Result Diagram: 02/07/17 0506 02/07/17 0506 Imaging Last Impressions Abdomen/Pelvis CT 02/03/17 0000 Signed Impressions: Service Date/Time: Friday, February 03, 2017 20:35 - CONCLUSION: 1. There is extensive subcutaneous edema in the proximal left thigh, greater than on the right side which may represent a cellulitis in addition to anasarca. No loculated fluid in the proximal thigh to suggest abscess. 2. Liver cirrhosis with moderate ascites and varices especially around the splenic hilum. Mild anasarca. 3. Splenomegaly to at least 22 cm. 4. Numerous layering calcified gallstones or sludge in the gallbladder 5. Fat and fluid containing ventral hernia measuring up to 6.4 cm in diameter. . Alejandro Perea MD Procedures No procedures performed. Other Results Laboratory Tests Test 02/03/17 02/03/17 02/03/17 02/03/17 01:20 17:23 18:00 21:25 Urine Color YELLOW Urine Turbidity HAZY Urine pH 6.0 Urine Specific [place] 1.021 Urine Protein 300 mg/dL Urine Glucose (UA) 300 mg/dL Urine Ketones NEG mg/dL Urine Occult Blood MOD Urine Nitrite NEG Urine Bilirubin NEG Urine Urobilinogen LESS THAN 2.0 MG/DL Urine Leukocyte Esterase NEG Urine RBC 63 /hpf Urine WBC 3 /hpf Urine Squamous Epithelial 5 /hpf Cells Urine Bacteria RARE /hpf Microscopic Urinalysis Comment Differential Total Cells 100 Counted Neutrophils % (Manual) 84 % Band Neutrophils % 6 % Lymphocytes % 6 % Monocytes % 2 % Basophils % 1 % Neutrophils # (Manual) 5.7 TH/MM3 Myelocytes 1 % Stool C. difficile Toxin (PCR) POSITIVE Stl C. difficile Toxin PRESUMPTIVE Epiderm 027 NEGATIVE Lactic Acid Level 1.8 mmol/L Test 02/04/17 02/07/17 23:40 05:06 Vancomycin Level Trough 20.3 MCG/ML White Blood Count 4.6 TH/MM3 Red Blood Count 3.22 MIL/MM3 Hemoglobin 9.7 GM/DL Hematocrit 28.9 % Mean Corpuscular Volume 89.7 FL Mean Corpuscular Hemoglobin 30.2 PG Mean Corpuscular Hemoglobin 33.7 % Concent Red Cell Distribution Width 13.5 % Platelet Count 77 TH/MM3 Mean Platelet Volume 8.6 FL Neutrophils (%) (Auto) 75.1 % Lymphocytes (%) (Auto) 13.1 % Monocytes (%) (Auto) 9.3 % Eosinophils (%) (Auto) 2.0 % Basophils (%) (Auto) 0.5 % Neutrophils # (Auto) 3.5 TH/MM3 Lymphocytes # (Auto) 0.6 TH/MM3 Monocytes # (Auto) 0.4 TH/MM3 Eosinophils # (Auto) 0.1 TH/MM3 Basophils # (Auto) 0.0 TH/MM3 CBC Comment AUTO DIFF Differential Comment AUTO DIFF CONFIRMED Platelet Estimate LOW Platelet Morphology Comment NORMAL Red Cell Morphology Comment NORMAL Sodium Level 140 MEQ/L Potassium Level 5.2 MEQ/L Chloride Level 115 MEQ/L Carbon Dioxide Level 16.3 MEQ/L Anion Gap 9 MEQ/L Blood Urea Nitrogen 20 MG/DL Creatinine 1.04 MG/DL Estimat Glomerular Filtration 54 ML/MIN Rate Random Glucose 126 MG/DL Calcium Level 7.1 MG/DL Protein Corrected Calcium 7.7 MG/DL Magnesium Level 1.6 MG/DL Total Bilirubin 0.4 MG/DL Aspartate Amino Transf 17 U/L (AST/SGOT) Alanine Aminotransferase 14 U/L (ALT/SGPT) Alkaline Phosphatase 137 U/L Total Protein 5.9 GM/DL Albumin 1.8 GM/DL Objective Remarks GENERAL: No acute distress. SKIN: Mild Erythema, induration on the left inner thigh and buttock. has drainage do not see the area of drainage. HEAD: Atraumatic. Normocephalic. EYES: Pupils equal and round. No scleral icterus. No injection or drainage. ENT: No nasal bleeding or discharge. Mucous membranes pink and moist. NECK: Trachea midline. No JVD. CARDIOVASCULAR: Regular rate and rhythm. RESPIRATORY: No accessory muscle use. Clear to auscultation. Breath sounds equal bilaterally. GASTROINTESTINAL: Abdomen soft, non-tender, nondistended. Hepatic and splenic margins not palpable. MUSCULOSKELETAL: Extremities without clubbing, cyanosis, or edema. No obvious deformities. NEUROLOGICAL: Awake and alert. No obvious cranial nerve deficits. PSYCHIATRIC: Appropriate mood and affect; insight and judgment normal. Medications and IVs Current Medications Medications (Trade) Dose Ordered Sig/Lotus Route Start Time Stop Time Status Last Admin (NS Flush) 2 ml UNSCH PRN IV FLUSH 02/01/17 01:30 02/01/17 22:06 (NS Flush) 2 ml BID IV FLUSH 02/01/17 09:00 02/06/17 21:30 (Tylenol) 650 mg Q4H PRN PO 02/01/17 01:30 02/03/17 18:53 (Zofran Inj) 4 mg Q6H PRN IVP 02/01/17 01:30 02/04/17 05:14 (Narcan Inj) 0.4 mg UNSCH PRN IV 02/01/17 01:30 (Meghana-Colace) 1 tab BID PO 02/01/17 09:00 02/03/17 22:02 (Milk Of Magnesia Liq) 30 ml Q12H PRN PO 02/01/17 01:30 (Dulcolax Supp) 10 mg DAILY PRN RECTAL 02/01/17 01:30 (D50w (Vial) Inj) 50 ml UNSCH PRN IV 02/01/17 01:45 Glucagon 1 mg 1 mg UNSCH PRN OTHER 02/01/17 01:45 Pharmacy Profile Note 0 ml @ 0 mls/hr UNSCH OTHER 02/01/17 02:45 Aztreonam 2000 mg/ Sodium Chloride 100 ml @ 200 mls/hr Q6H IV 02/01/17 17:00 02/07/17 06:51 (Flagyl 500 Mg Inj) 100 ml @ 100 mls/hr Q8H IV 02/01/17 16:00 02/07/17 08:34 (Benadryl Inj) 25 mg Q6H PRN IV PUSH 02/01/17 15:45 (Hibiclens 4% Top Soln) 1 applic DAILY TOPICAL 02/01/17 16:45 02/07/17 08:35 (Remeron) 15 mg HS PO 02/02/17 21:00 02/06/17 21:31 (Desyrel) 200 mg HS PO 02/02/17 21:15 02/06/17 21:30 (Levemir Inj) 10 units HS SQ 02/03/17 21:00 02/06/17 21:38 (NovoLIN R INJ) 3 units TIDAC SQ 02/03/17 17:00 02/06/17 16:30 Enalaprilat 0.65 mg 0.65 mg Q8H PRN IV PUSH 02/03/17 16:15 02/05/17 16:44 (NS 1000 ml Inj) 1,000 ml @ 84 mls/hr [id number] IV 02/03/17 17:00 02/07/17 04:25 (VANCOMYCIN for oral use only) 500 mg Q6H PO 02/03/17 23:00 02/07/17 06:51 Morphine Sulfate 3 mg 3 mg Q3H PRN IV PUSH 02/04/17 18:00 02/07/17 08:35 (Vancomycin Inj/ NS 250 ml Inj) 262.5 ml @ 250 mls/hr Q24H IV 02/06/17 03:00 02/07/17 04:21 Miscellaneous Information SPECIFIC LAB TO BE DRAWN:VANCOMY... ONCE ONCE .XX 02/08/17 02:45 02/08/17 02:46 A/P Assessment and Plan 1. Cellulitis/phlegmon on Left Perineal area Left buttock and labia, CT not found Felisha, improving on antibiotics as per ID specialist Doctor Stuart, had Allergic Reaction to Penicillin mild to moderate resolved, on Azactam and Flagyl and Vancomycin. followed by General surgery for probable I and D as needed. culture made of the area of drainage as per ID specialist. 2. CKD III stable 3. DM II insulin dependent, better control continue titration of Insulin. 4. Depression continue Home medicines. 5. Tobacco dependency strongly recommended to stop smoking. 6. Thrombocytopenia Platelet count [address] scan. follow intermittently. 7. Hypertension mild uncontrol at this time continue present care. 8. C Diff positive she is already on Flagyl IV and Vancomycin by mouth. 9. Hypomagnesemia replaced/ Hyperkalemia given Kayexalate. DVT prophylaxis with SCDs Discussed with patient and all questions answered to the best of my abilities. Discharge Planning Once cleared by ID specialist. Thang Cheema MD Feb 07, 2017 10:56
[2017-02-07] MEDS ORDERED: SODIUM POLYSTYRENE SULFONATE SUSP 15 GM/60 ML CUP PO ONE (11:00)
[2017-02-07 12:06] VITALS: BP 162/72; PULSE 78; RESP 19; TEMP 97.3; O2SAT 97
[2017-02-07] MEDS: MAGNESIUM OXIDE 400 MG TAB PO SCH (12:33)
--- NOTE | 2017-02-07 13:50 | HHI.IDPN ---
Subjective Subjective Remarks pt is upset crying from pain she has abdominal distention and co SOB, orthopnea also pain in L buttock, upset that her surgery was cancelled no fever Antibiotics azactam flagyl vanco iv vanco po Allergies: Coded Allergies: Egg Allergy (Verified Allergy, Unknown, 01/31/17) Levaquin (Verified Allergy, Unknown, 01/31/17) [place] (Verified Allergy, Unknown, 01/31/17) [place] (Verified Allergy, Unknown, 01/31/17) Penicillin (Verified Allergy, Unknown, 01/31/17) [place] (Verified Allergy, Unknown, 01/31/17) Objective . Vital Signs Date Time Temp Pulse Resp B/P Pulse Ox O2 Delivery O2 Flow Rate FiO2 02/07/17 12:00 Room Air 02/07/17 08:07 97.9 76 19 159/70 95 02/07/17 08:00 Room Air 02/07/17 05:28 97.9 70 18 129/77 96 02/07/17 00:00 Room Air 02/07/17 00:00 98.4 77 18 128/68 96 02/06/17 21:37 98.0 83 20 151/73 99 02/06/17 20:00 Room Air 02/06/17 16:00 Room Air 02/06/17 16:00 96.3 87 20 161/70 93 02/06/17 02/06/17 02/07/17 15:00 23:00 07:00 Intake Total 120 ml 120 ml 0 ml Output Total 300 ml Balance 120 ml 120 ml -300 ml Intake Oral 120 ml 120 ml 0 ml Output Urine Total 300 ml # Voids 3 4 # Bowel Movements 3 0 0 . Laboratory Tests Test 02/06/17 02/07/17 07:14 05:06 White Blood Count 4.0 TH/MM3 4.6 TH/MM3 Red Blood Count 3.33 MIL/MM3 3.22 MIL/MM3 Hemoglobin 10.1 GM/DL 9.7 GM/DL Hematocrit 29.5 % 28.9 % Mean Corpuscular Volume 88.6 FL 89.7 FL Mean Corpuscular Hemoglobin 30.4 PG 30.2 PG Mean Corpuscular Hemoglobin 34.3 % 33.7 % Concent Red Cell Distribution Width 13.3 % 13.5 % Platelet Count 69 TH/MM3 77 TH/MM3 Mean Platelet Volume 8.9 FL 8.6 FL Neutrophils (%) (Auto) 67.7 % 75.1 % Lymphocytes (%) (Auto) 19.1 % 13.1 % Monocytes (%) (Auto) 10.2 % 9.3 % Eosinophils (%) (Auto) 2.3 % 2.0 % Basophils (%) (Auto) 0.7 % 0.5 % Neutrophils # (Auto) 2.7 TH/MM3 3.5 TH/MM3 Lymphocytes # (Auto) 0.8 TH/MM3 0.6 TH/MM3 Monocytes # (Auto) 0.4 TH/MM3 0.4 TH/MM3 Eosinophils # (Auto) 0.1 TH/MM3 0.1 TH/MM3 Basophils # (Auto) 0.0 TH/MM3 0.0 TH/MM3 CBC Comment AUTO DIFF AUTO DIFF Differential Comment AUTO DIFF AUTO DIFF CONFIRMED CONFIRMED Platelet Estimate LOW LOW Platelet Morphology Comment NORMAL NORMAL Red Cell Morphology Comment NORMAL Laboratory Tests Test 02/06/17 02/07/17 07:14 05:06 Sodium Level 142 MEQ/L 140 MEQ/L Potassium Level 4.8 MEQ/L 5.2 MEQ/L Chloride Level 114 MEQ/L 115 MEQ/L Carbon Dioxide Level 19.1 MEQ/L 16.3 MEQ/L Anion Gap 9 MEQ/L 9 MEQ/L Blood Urea Nitrogen 20 MG/DL 20 MG/DL Creatinine 1.08 MG/DL 1.04 MG/DL Estimat Glomerular Filtration 52 ML/MIN 54 ML/MIN Rate Random Glucose 110 MG/DL 126 MG/DL Calcium Level 7.6 MG/DL 7.1 MG/DL Magnesium Level 1.3 MG/DL 1.6 MG/DL Protein Corrected Calcium 7.7 MG/DL Total Bilirubin 0.4 MG/DL Aspartate Amino Transf 17 U/L (AST/SGOT) Alanine Aminotransferase 14 U/L (ALT/SGPT) Alkaline Phosphatase 137 U/L Total Protein 5.9 GM/DL Albumin 1.8 GM/DL Microbiology Date/Time Procedure Status Source Growth 02/06/17 13:30 Gram Stain - Final Resulted Wound Buttock 02/06/17 13:30 Wound Culture Resulted Wound Buttock Pending Imaging Last Impressions Abdomen/Pelvis CT 02/03/17 0000 Signed Impressions: Service Date/Time: Friday, February 03, 2017 20:35 - CONCLUSION: 1. There is extensive subcutaneous edema in the proximal left thigh, greater than on the right side which may represent a cellulitis in addition to anasarca. No loculated fluid in the proximal thigh to suggest abscess. 2. Liver cirrhosis with moderate ascites and varices especially around the splenic hilum. Mild anasarca. 3. Splenomegaly to at least 22 cm. 4. Numerous layering calcified gallstones or sludge in the gallbladder 5. Fat and fluid containing ventral hernia measuring up to 6.4 cm in diameter. . Alejandro Perea MD Physical Exam CONSTITUTIONAL/GENERAL: This is an obese female patient, in moderate apparent distress. looks better TUBES/LINES/DRAINS: SKIN: No jaundice, rash resolved STATUS LOCALIS: Perinral area on the L and lower buttock quite tender to palpation, indurated , no fluctuance edema and erythema of L thigh, perineal area L labia nad L buttock - improving no crepitus + fluctuance + small open wound on L buttock draining small amount of thick salmon colored odorless pus HEAD: Atraumatic. Normocephalic. EYES: Pupils equal and round and reactive. Extraocular motions intact. No scleral icterus. No injection or drainage. Fundi not examined. CARDIOVASCULAR: Regular rate and rhythm without murmurs, gallops, or rubs. No JVD. Peripheral pulses symmetric. RESPIRATORY/CHEST: Symmetric, unlabored respirations. Clear to auscultation. Breath sounds equal bilaterally. No wheezes, rales, or rhonchi. GASTROINTESTINAL: Abdomen soft, obese +markedly tender to palpation diffusely and markedly distended. No hepato-splenomegaly, or palpable masses. + voluntary guarding. Bowel sounds present. GENITOURINARY: Without palpable bladder distension. MUSCULOSKELETAL: Extremities without clubbing, cyanosis, or edema. NEUROLOGICAL: Awake and alert. non focal PSYCHIATRIC: upset, crying Assessment & Plan Remarks cellulitis/phegmone, now abscess clinically of L perineal area L buttock and L labia , CT not cw Felisha - worse today + fluctuance on physical exam to suggest the abscess - probably will bneed surgical debridement if cont to worsen - Gen sx ff, no surgical intervention at this point - mixed layla on the Gstain, but probably MRSA/MSSA Multiple medical problems: DM cirrhosis, tob+ Allergic reaction to PCN, mild to moderate: resolved C diff - ? ileus - clinially worsening C.diff High grade fever, sepsis - ? C.diff and L thigh/buttock SSTI contributing clinically improved RUQ pain; [address] not sugg of gallbladder dx; LFTs OK REC'S: - cont azactam, IV vanco, flagyl - [facility] surgical team regarding I+D, I think pt will benifit from draining the purulent collection - cont oral vanco for C.diff - chk LFTs - KUB blaise RN dw pt Zee Beltran MD Feb 07, 2017 13:50
--- NOTE | 2017-02-07 15:32 | RADRPT ---
EXAM DATE/TIME: 02/07/2017 14:34 [facility] COMPARISON: No previous studies available for comparison. INDICATIONS : Patient has been distended for three days. MEDICAL HISTORY : Renal failure, chronic. Diabetes mellitus type 2. Cirrhosis. Gallstones. SURGICAL HISTORY : section. ENCOUNTER: Subsequent ACUITY: 4 - 6 days PAIN SCORE: 10/10 LOCATION: Bilateral abdomen. FINDINGS: There is no evidence of air-filled dilatation of the small or large bowel. Degenerative changes and scoliosis of the thoracolumbar spine are noted. No free intraperitoneal air is noted. CONCLUSION: 1. No air-filled dilatation of the small or large bowel. 2. No free intraperitoneal air. 3. Degenerative changes and scoliosis of the thoracolumbar spine. Josue Prince MD on February 07, 2017 at 15:28 Board Certified Radiologist. This report was verified electronically.
[2017-02-07 16:06] VITALS: BP 160/70; PULSE 87; RESP 18; TEMP 98.4; O2SAT 97
[2017-02-07] MEDS: INSULIN DETEMIR 100 UNITS/ML VIAL SQ SCH (20:57)
[2017-02-07] MEDS: MIRTAZAPINE 15 MG TAB PO SCH (20:58)
[2017-02-07] MEDS: traZODone HCL 100 MG TAB PO SCH (20:58)
[2017-02-07 21:47] VITALS: BP 141/87; PULSE 85; RESP 18; TEMP 98; O2SAT 100
[2017-02-08] VITALS (7 sets, daily range): BP systolic 135–161; BP diastolic 63–88; PULSE 68–81; RESP 12–18; TEMP 97.8–98.6; O2SAT 95–100
[2017-02-08] MEDS ORDERED: PHARMACY ORDERED LAB ONE (02:45)
[2017-02-08] MEDS ORDERED: IOHEXOL 350 MG/ML 10 ML VIAL (for RAD DIAG) IV ONE (02:46)
[2017-02-08] MEDS: MORPHINE SULFATE 4 MG/ML INJ IV PUSH PRN ×6 (03:07→22:53)
--- NOTE | 2017-02-08 03:19 | RADRPT ---
EXAM DATE/TIME: 02/08/2017 02:46 [facility] COMPARISON: CT ABDOMEN & PELVIS W CONTRAST, February 03, 2017, 20:35. INDICATIONS : Abdominal distention. IV CONTRAST: 95 cc Omnipaque 350 (iohexol) IV ORAL CONTRAST: No oral contrast ingested. RADIATION DOSE: 26.64 CTDIvol (mGy) MEDICAL HISTORY : Diabetes mellitus type 2. Renal failure, chronic. Cirrhosis.Gallstones SURGICAL HISTORY : Umbilical hernia repair. section. ENCOUNTER: Initial ACUITY: 3 days PAIN SCALE: 10/10 LOCATION: Bilateral abdomen TECHNIQUE: Volumetric scanning of the abdomen and pelvis was performed. Using automated exposure control and ad justment of the mA and/or kV according to patient size, radiation dose was kept as low as reasonably achievable to obtain optimal diagnostic quality images. FINDINGS: CT Abdomen: The pancreas, kidneys, adrenals are unremarkable. There is no evidence for any appreciabl e pathological adenopathy, free fluid, or bowel obstruction. There is slight atelectasis in the bila teral lower lunga not present previously. The gallbladder demonstrates multiple stones without gallbl adder wall thickening, or pericholecystic fluid. The liver appears cirrhotic and splenomegaly has not changed with varices in the upper abdomen. There is an approximate 1.9 cm cyst in the lower portion of the spleen anteriorly not changed. Extensive ascites is present throughout the abdomen and pelvis with slight edema in the anterior abdominal wall. There is slight hernia in the anterior abdominal wa ll and some fluid herniating into the anterior subcutaneous tissue CT pelvis: There is no evidence for mass, abscess formation, or any significant adenopathy within the pelvis. CONCLUSION: 1. No change in cirrhosis, signs of portal venous hypertension and extensive ascites. 2. Cholelithiasis. 3. Slight bibasilar atelectasis. Gabriela Castillo MD on February 08, 2017 at 3:12 Board Certified Radiologist. This report was verified electronically.
[2017-02-08] MEDS: VANCOMYCIN INJ 1,250 MG in SODIUM CHLOR 0.9% 250 ML INJ 250 ML IV SCH (03:27)
[2017-02-08] MEDS: AZTREONAM INJ 2,000 MG in SODIUM CHLORIDE 0.9% INJ 100 ML IV SCH ×4 (04:30→22:54)
[2017-02-08] MEDS: VANCOMYCIN 500 MG VIAL (FOR ORAL USE ONLY) PO SCH ×4 (06:12→21:59)
[2017-02-08] MEDS: INSULIN NovoLIN REGULAR SUPPLEMENTAL SCALE SQ SCH ×4 (06:14→21:58)
[2017-02-08] MEDS: INSULIN HUMAN REGULAR 1,000 UNITS/10 ML VIAL SQ SCH ×3 (08:00→17:09)
[2017-02-08] MEDS: DOCUSATE SODIUM 50 MG/SENNA 8.6 MG TAB PO SCH ×2 (09:00→21:00)
[2017-02-08] MEDS: SODIUM CHLORIDE 0.9% FLUSH 10 ML FLUSH IV FLUSH SCH ×2 (09:41→19:50)
[2017-02-08] MEDS: MAGNESIUM OXIDE 400 MG TAB PO SCH (09:41)
[2017-02-08] MEDS: metroNIDAZOLE 500 MG INJ 100 ML IV SCH ×3 (09:41→22:54)
[2017-02-08] MEDS: CHLORHEXIDINE GLUCONATE 4% SOLN 120 ML BTL TOPICAL SCH (09:43)
--- NOTE | 2017-02-08 11:35 | HHI.IDPN ---
Subjective Subjective Remarks no fever drainage form L buttockmarkedly increased pain improved co abd distension, SOB kub wo ileus, CT showed large amount of ascites Antibiotics azactam flagyl vanco iv vanco po Allergies: Coded Allergies: Egg Allergy (Verified Allergy, Unknown, 01/31/17) Levaquin (Verified Allergy, Unknown, 01/31/17) [place] (Verified Allergy, Unknown, 01/31/17) Pear (Verified Allergy, Unknown, 01/31/17) Penicillin (Verified Allergy, Unknown, 01/31/17) [place] (Verified Allergy, Unknown, 01/31/17) Objective . Vital Signs Date Time Temp Pulse Resp B/P Pulse Ox O2 Delivery O2 Flow Rate FiO2 02/08/17 08:07 97.9 68 18 156/72 98 02/08/17 05:30 98.0 81 18 135/70 96 02/08/17 00:55 98.6 81 18 138/88 98 02/07/17 21:47 98.0 85 18 141/87 100 02/07/17 21:00 Room Air 02/07/17 16:06 98.4 87 18 160/70 97 02/07/17 16:00 Room Air 02/07/17 12:06 97.3 78 19 162/72 97 02/07/17 12:00 Room Air 02/07/17 02/07/17 02/08/17 15:00 23:00 07:00 Intake Total 2239 ml 480 ml 120 ml Output Total 300 ml 650 ml Balance 2239 ml 180 ml -530 ml Intake Oral 380 ml 480 ml 120 ml IV Total 1859 ml Output Urine Total 300 ml 650 ml # Voids 3 # Bowel Movements 1 1 0 . Laboratory Tests Test 02/07/17 05:06 White Blood Count 4.6 TH/MM3 Red Blood Count 3.22 MIL/MM3 Hemoglobin 9.7 GM/DL Hematocrit 28.9 % Mean Corpuscular Volume 89.7 FL Mean Corpuscular Hemoglobin 30.2 PG Mean Corpuscular Hemoglobin 33.7 % Concent Red Cell Distribution Width 13.5 % Platelet Count 77 TH/MM3 Mean Platelet Volume 8.6 FL Neutrophils (%) (Auto) 75.1 % Lymphocytes (%) (Auto) 13.1 % Monocytes (%) (Auto) 9.3 % Eosinophils (%) (Auto) 2.0 % Basophils (%) (Auto) 0.5 % Neutrophils # (Auto) 3.5 TH/MM3 Lymphocytes # (Auto) 0.6 TH/MM3 Monocytes # (Auto) 0.4 TH/MM3 Eosinophils # (Auto) 0.1 TH/MM3 Basophils # (Auto) 0.0 TH/MM3 CBC Comment AUTO DIFF Differential Comment AUTO DIFF CONFIRMED Platelet Estimate LOW Platelet Morphology Comment NORMAL Red Cell Morphology Comment NORMAL Laboratory Tests Test 02/07/17 05:06 Sodium Level 140 MEQ/L Potassium Level 5.2 MEQ/L Chloride Level 115 MEQ/L Carbon Dioxide Level 16.3 MEQ/L Anion Gap 9 MEQ/L Blood Urea Nitrogen 20 MG/DL Creatinine 1.04 MG/DL Estimat Glomerular Filtration 54 ML/MIN Rate Random Glucose 126 MG/DL Calcium Level 7.1 MG/DL Protein Corrected Calcium 7.7 MG/DL Magnesium Level 1.6 MG/DL Total Bilirubin 0.4 MG/DL Aspartate Amino Transf 17 U/L (AST/SGOT) Alanine Aminotransferase 14 U/L (ALT/SGPT) Alkaline Phosphatase 137 U/L Total Protein 5.9 GM/DL Albumin 1.8 GM/DL Microbiology Date/Time Procedure Status Source Growth 02/06/17 13:30 Gram Stain - Final Resulted Wound Buttock 02/06/17 13:30 Wound Culture - Preliminary Resulted Wound Buttock Imaging Last Impressions Abdomen/Pelvis CT 02/08/17 0000 Signed Impressions: Service Date/Time: Wednesday, February 08, 2017 02:46 - CONCLUSION: 1. No change in cirrhosis, signs of portal venous hypertension and extensive ascites. 2. Cholelithiasis. 3. Slight bibasilar atelectasis. Gabriela Castillo MD Abdomen X-Ray 02/07/17 0000 Signed Impressions: Service Date/Time: Tuesday, February 07, 2017 14:34 - CONCLUSION: 1. No air- filled dilatation of the small or large bowel. 2. No free intraperitoneal air. 3. Degenerative changes and scoliosis of the thoracolumbar spine. Josue Prince MD Physical Exam CONSTITUTIONAL/GENERAL: This is an obese female patient, in moderate apparent distress. looks better TUBES/LINES/DRAINS: SKIN: No jaundice, no rash STATUS LOCALIS: Perinral area on the L and lower buttock quite tender to palpation, indurated , no fluctuance - much improved edema and erythema of L thigh, perineal area L labia nad L buttock - improving no crepitus + fluctuance + now drainig large amount from open wound on L buttock , salmon colored odorless pus HEAD: Atraumatic. Normocephalic. EYES: Pupils equal and round and reactive. Extraocular motions intact. No scleral icterus. No injection or drainage. Fundi not examined. CARDIOVASCULAR: Regular rate and rhythm without murmurs, gallops, or rubs. No JVD. Peripheral pulses symmetric. RESPIRATORY/CHEST: Symmetric, unlabored respirations. Clear to auscultation. Breath sounds equal bilaterally. No wheezes, rales, or rhonchi. GASTROINTESTINAL: Abdomen soft, obese +mildly tender to palpation diffusely and markedly distended. No hepato-splenomegaly, or palpable masses. Bowel sounds present. GENITOURINARY: Without palpable bladder distension. MUSCULOSKELETAL: Extremities without clubbing, cyanosis, or edema. NEUROLOGICAL: Awake and alert. non focal PSYCHIATRIC: calm, pleasant Assessment & Plan Remarks cellulitis/phegmone, now abscess clinically of L perineal area L buttock and L labia , CT not cw Felisha -improving after drainaga increased - clx wo growth -likley 2/2 previous abx use + fluctuance on physical exam to suggest the abscess - Gen sx ff, no surgical intervention at this point - mixed layla on the Gstain, but probably MRSA/MSSA Multiple medical problems: DM cirrhosis, tob+ Allergic reaction to PCN, mild to moderate: resolved C diff -no e/o ileus - diarrhea resolved High grade fever, sepsis - resolved Massive ascites - pt has liver cirrosis - for paracentesis REC'S: - cont azactam, IV vanco, flagyl - Dr Patterson consult for 2nd opinion - cont oral vanco for C.diff - dw RN dw pt Dw Zee Robertson Dr, Dr, MD Feb 08, 2017 11:35
--- NOTE | 2017-02-08 11:43 | HHI.PR ---
Subjective Remarks This is a 61 year old female patient with a past medical which includes chronic kidney disease stage III, diabetes mellitus insulin-dependent, cirrhosis, depression and tobacco abuse. Patient presented to [facility] emergency department, with complaints of left inner thigh and buttock pain edema and erythema. Patient reports the area began as a small, "cyst," that has gotten more painful and increased in size over the past week. Patient describes the pain as sharp severe and in tears at time of exam. Patient also reports generalized malaise for the past few days with chills and nausea for the past 2 days. Patient denies any specific trauma or events leading to skin irritation. Patient denies any penile numbness, vaginal discharge, bleeding or rectal discharge. Patient also denies fevers vomiting diarrhea constipation chest pain or shortness of breath. Patient reports that she had similar symptoms on the right inner thigh which required surgical intervention in the past. Pelvic CT scan done at [facility] [place] she was left perineal cellulitis with no abscess. 02/03: Seen in her bedroom in the presence of nurse, worsening as per the marked area is smaller than the area or erythema seen on physical exam also the patient complaint of chills, she is afebrile, uncontrolled blood sugar and Hypertension. 02/04: Stable in her bedroom, improving clinically but continue with induration, and may need surgery, as per ID and General Surgery, continue with Pain adjusted medicines. no nausea, vomit, has loose stools with positive C Diff on Vancomycin by mouth and Flagyl IV 02/05: Patient stable in her bedroom, seen in the presence of nurse Miss Person, no nausea, vomit, improved bowel movements. 02/06: Seen in her bedroom, discussed with nurse Miss Chaidez, no surgical management as per General Surgery. 02/07; Patient with Pain on palpation on the buttock area and perineal area, definitely will need Surgical management. 02/08: Seen with nurse Miss Badillo, the patient has abdominal discomfort and during the night had a new CT abdomen and Pelvis, she has increased Cirrhosis, consult placed for Paracentesis, get INR stat, also will consult GI specialist, No nausea, vomit of diarrhea, discussed with ID specialist Objective Vital Signs Date Time Temp Pulse Resp B/P Pulse Ox O2 Delivery O2 Flow Rate FiO2 02/08/17 08:07 97.9 68 18 156/72 98 02/08/17 05:30 98.0 81 18 135/70 96 02/08/17 00:55 98.6 81 18 138/88 98 02/07/17 21:47 98.0 85 18 141/87 100 02/07/17 21:00 Room Air 02/07/17 16:06 98.4 87 18 160/70 97 02/07/17 16:00 Room Air 02/07/17 12:06 97.3 78 19 162/72 97 02/07/17 12:00 Room Air I/O 02/07/17 02/07/17 02/07/17 02/08/17 02/08/17 02/08/17 07:00 15:00 23:00 07:00 15:00 23:00 Intake Total 0 ml 2239 ml 480 ml 120 ml Output Total 300 ml 300 ml 650 ml Balance -300 ml 2239 ml 180 ml -530 ml Intake Oral 0 ml 380 ml 480 ml 120 ml IV Total 1859 ml Output Urine Total 300 ml 300 ml 650 ml # Voids 3 # Bowel Movements 0 1 1 0 Result Diagram: 02/07/17 0506 02/07/17 0506 Imaging Last Impressions Abdomen/Pelvis CT 02/08/17 0000 Signed Impressions: Service Date/Time: Wednesday, February 08, 2017 02:46 - CONCLUSION: 1. No change in cirrhosis, signs of portal venous hypertension and extensive ascites. 2. Cholelithiasis. 3. Slight bibasilar atelectasis. Gabriela Castillo MD Abdomen X-Ray 02/07/17 0000 Signed Impressions: Service Date/Time: Tuesday, February 07, 2017 14:34 - CONCLUSION: 1. No air- filled dilatation of the small or large bowel. 2. No free intraperitoneal air. 3. Degenerative changes and scoliosis of the thoracolumbar spine. Josue Prince MD Procedures No procedures performed. Other Results Laboratory Tests Test 02/07/17 02/08/17 05:06 03:17 White Blood Count 4.6 TH/MM3 Red Blood Count 3.22 MIL/MM3 Hemoglobin 9.7 GM/DL Hematocrit 28.9 % Mean Corpuscular Volume 89.7 FL Mean Corpuscular Hemoglobin 30.2 PG Mean Corpuscular Hemoglobin 33.7 % Concent Red Cell Distribution Width 13.5 % Platelet Count 77 TH/MM3 Mean Platelet Volume 8.6 FL Neutrophils (%) (Auto) 75.1 % Lymphocytes (%) (Auto) 13.1 % Monocytes (%) (Auto) 9.3 % Eosinophils (%) (Auto) 2.0 % Basophils (%) (Auto) 0.5 % Neutrophils # (Auto) 3.5 TH/MM3 Lymphocytes # (Auto) 0.6 TH/MM3 Monocytes # (Auto) 0.4 TH/MM3 Eosinophils # (Auto) 0.1 TH/MM3 Basophils # (Auto) 0.0 TH/MM3 CBC Comment AUTO DIFF Differential Comment AUTO DIFF CONFIRMED Platelet Estimate LOW Platelet Morphology Comment NORMAL Red Cell Morphology Comment NORMAL Sodium Level 140 MEQ/L Potassium Level 5.2 MEQ/L Chloride Level 115 MEQ/L Carbon Dioxide Level 16.3 MEQ/L Anion Gap 9 MEQ/L Blood Urea Nitrogen 20 MG/DL Creatinine 1.04 MG/DL Estimat Glomerular Filtration 54 ML/MIN Rate Random Glucose 126 MG/DL Calcium Level 7.1 MG/DL Protein Corrected Calcium 7.7 MG/DL Magnesium Level 1.6 MG/DL Total Bilirubin 0.4 MG/DL Aspartate Amino Transf 17 U/L (AST/SGOT) Alanine Aminotransferase 14 U/L (ALT/SGPT) Alkaline Phosphatase 137 U/L Total Protein 5.9 GM/DL Albumin 1.8 GM/DL Vancomycin Level Trough 19.4 MCG/ML Objective Remarks GENERAL: No acute distress. SKIN: Mild Erythema, induration on the left inner thigh and buttock. has drainage do not see the area of drainage. HEAD: Atraumatic. Normocephalic. EYES: Pupils equal and round. No scleral icterus. No injection or drainage. ENT: No nasal bleeding or discharge. Mucous membranes pink and moist. NECK: Trachea midline. No JVD. CARDIOVASCULAR: Regular rate and rhythm. RESPIRATORY: No accessory muscle use. Clear to auscultation. Breath sounds equal bilaterally. GASTROINTESTINAL: Abdomen soft, non-tender, distended. MUSCULOSKELETAL: Extremities without clubbing, cyanosis, or edema. No obvious deformities. NEUROLOGICAL: Awake and alert. No obvious cranial nerve deficits. PSYCHIATRIC: Appropriate mood and affect; insight and judgment normal. Medications and IVs Current Medications Medications (Trade) Dose Ordered Sig/Lotus Route Start Time Stop Time Status Last Admin (NS Flush) 2 ml UNSCH PRN IV FLUSH 02/01/17 01:30 02/01/17 22:06 (NS Flush) 2 ml BID IV FLUSH 02/01/17 09:00 02/08/17 09:41 (Tylenol) 650 mg Q4H PRN PO 02/01/17 01:30 02/03/17 18:53 (Zofran Inj) 4 mg Q6H PRN IVP 02/01/17 01:30 02/04/17 05:14 (Narcan Inj) 0.4 mg UNSCH PRN IV 02/01/17 01:30 (Meghana-Colace) 1 tab BID PO 02/01/17 09:00 02/03/17 22:02 (Milk Of Magnesia Liq) 30 ml Q12H PRN PO 02/01/17 01:30 (Dulcolax Supp) 10 mg DAILY PRN RECTAL 02/01/17 01:30 (D50w (Vial) Inj) 50 ml UNSCH PRN IV 02/01/17 01:45 Glucagon 1 mg 1 mg UNSCH PRN OTHER 02/01/17 01:45 Pharmacy Profile Note 0 ml @ 0 mls/hr UNSCH OTHER 02/01/17 02:45 Aztreonam 2000 mg/ Sodium Chloride 100 ml @ 200 mls/hr Q6H IV 02/01/17 17:00 02/08/17 04:30 (Flagyl 500 Mg Inj) 100 ml @ 100 mls/hr Q8H IV 02/01/17 16:00 02/08/17 09:41 (Benadryl Inj) 25 mg Q6H PRN IV PUSH 02/01/17 15:45 (Hibiclens 4% Top Soln) 1 applic DAILY TOPICAL 02/01/17 16:45 02/08/17 09:43 (Remeron) 15 mg HS PO 02/02/17 21:00 02/07/17 20:58 (Desyrel) 200 mg HS PO 02/02/17 21:15 02/07/17 20:58 (Levemir Inj) 10 units HS SQ 02/03/17 21:00 02/07/17 20:57 (NovoLIN R INJ) 3 units TIDAC SQ 02/03/17 17:00 02/07/17 17:28 Enalaprilat 0.65 mg 0.65 mg Q8H PRN IV PUSH 02/03/17 16:15 02/05/17 16:44 (NS 1000 ml Inj) 1,000 ml @ 84 mls/hr [id number] IV 02/03/17 17:00 Hold 02/07/17 16:10 (VANCOMYCIN for oral use only) 500 mg Q6H PO 02/03/17 23:00 02/08/17 06:12 Morphine Sulfate 3 mg 3 mg Q3H PRN IV PUSH 02/04/17 18:00 02/08/17 10:57 (Vancomycin Inj/ NS 250 ml Inj) 262.5 ml @ 250 mls/hr Q24H IV 02/06/17 03:00 02/08/17 03:27 (Mag-Ox) 400 mg DAILY PO 02/07/17 11:00 02/08/17 09:41 Miscellaneous Information SPECIFIC LAB TO BE DRAWN:VANCOMYCIN TROUGH DATE TO... ONCE ONCE .XX 02/10/17 02:45 02/10/17 02:46 A/P Assessment and Plan 1. Cellulitis/phlegmon on Left Perineal area Left buttock and labia, CT not found Felisah, improving on antibiotics as per ID specialist Doctor Sturat, had Allergic Reaction to Penicillin mild to moderate resolved, on Azactam and Flagyl and Vancomycin. followed by General surgery for probable I and D as needed. culture made by ID specialist, consulted again General Surgery, ID specialist Doctor Stuart discussed the case with Doctor Nassar for procedure. 2. CKD III stable 3. DM II insulin dependent, better control continue titration of Insulin. 4. Depression continue Home medicines. 5. Tobacco dependency strongly recommended to stop smoking. 6. Thrombocytopenia improving to 77 Probable secondary to alcohol abuse. 7. Hypertension mild uncontrol at this time continue present care. 8. C Diff positive she is already on Flagyl IV and Vancomycin by mouth. 9. Hypomagnesemia replaced/ Hyperkalemia given Kayexalate. following laboratory in am tomorrow. 10. Ascites asked for Paracentesis. asked for PT and INR. probable secondary to Cirrhosis, was asked for hepatitis profile GI specialist, this is probably related to alcohol abuse but the patient states she does not drink too much. rule out Hepatitis. DVT prophylaxis with SCDs Discussed with patient and all questions answered to the best of my abilities. Discussed with Doctor Zee Davidson Infectious Disease specialist recommendations appreciated. Discharge Planning Once cleared by ID specialist. Thang Cheema MD Feb 08, 2017 11:43
[2017-02-08 12:47] LABS: INTERNATIONAL NORMALIZED RATIO 1.3 RATIO
--- NOTE | 2017-02-08 14:05 | PD.CONS ---
HPI History of Present Illness This is a 61 year old female w/ hx hep c s/p successful tx with Harvoni, cirrhosis, IDDM, CKD who presented to the hospital [facility] with "cyst" in perianal area and was found to have left perianal cellulitis. 3 days ago she began experiencing abdominal swelling and dark urine, along with right side abdominal pain and back pain. The pain is worse when she is supine. No other relieving or aggravating factors. Never had this pain before. Prior to hopspitalization she denies jaundice, swelling, abd pain. She says she has done harvoni and her hep C is now undetectable. Denies heavy drinking and her last ETOH was a few drinks around new years. (Jacqueline Ramos) PFSH Past Medical History chronic kidney disease stage III, diabetes mellitus insulin-dependent, cirrhosis , depression and tobacco abuse Past Surgical History Umbilical hernia repair, 2, excision right thigh cellulitis (Jacqueline Ramos) Coded Allergies: Egg Allergy (Verified Allergy, Unknown, 01/31/17) Levaquin (Verified Allergy, Unknown, 01/31/17) [place] (Verified Allergy, Unknown, 01/31/17) Pear (Verified Allergy, Unknown, 01/31/17) Penicillin (Verified Allergy, Unknown, 01/31/17) [place] (Verified Allergy, Unknown, 01/31/17) Family History Patient's mother is 89 alive and healthy Denies family medical history is specifically CAD/ME or similar skin issues Social History Patient denies EtOH use Patient admits to smoking 5 cigarettes per day (Jacqueline Ramos) Review of Systems Constitutional: DENIES: Fever Eyes: DENIES: Blurred vision Ears, nose, mouth, throat: DENIES: Hearing loss Respiratory: DENIES: Cough Cardiovascular: DENIES: Chest pain Gastrointestinal: COMPLAINS OF: Abdominal pain, Swelling of Abdomen, DENIES: Black stools, Bloody stools, Constipation, Diarrhea, Nausea, Vomiting Genitourinary: DENIES: Hematuria Musculoskeletal: DENIES: Muscle aches Integumentary: DENIES: Jaundice Neurologic: DENIES: Abnormal gait Psychiatric: DENIES: Confusion (Jacqueline Ramos) GI Exam Vitals I&O Vital Signs Date Time Temp Pulse Resp B/P Pulse Ox O2 Delivery O2 Flow Rate FiO2 02/08/17 12:05 98.0 76 18 136/63 98 02/08/17 08:35 Room Air 02/08/17 08:07 97.9 68 18 156/72 98 02/08/17 05:30 98.0 81 18 135/70 96 02/08/17 00:55 98.6 81 18 138/88 98 02/07/17 21:47 98.0 85 18 141/87 100 02/07/17 21:00 Room Air 02/07/17 16:06 98.4 87 18 160/70 97 02/07/17 16:00 Room Air I/O 02/07/17 02/07/17 02/07/17 02/08/17 02/08/17 02/08/17 07:00 15:00 23:00 07:00 15:00 23:00 Intake Total 0 ml 2239 ml 480 ml 120 ml Output Total 300 ml 300 ml 650 ml Balance -300 ml 2239 ml 180 ml -530 ml Intake Oral 0 ml 380 ml 480 ml 120 ml IV Total 1859 ml Output Urine Total 300 ml 300 ml 650 ml # Voids 3 # Bowel Movements 0 1 1 0 Imaging Last Impressions Abdomen/Pelvis CT 02/08/17 0000 Signed Impressions: Service Date/Time: Wednesday, February 08, 2017 02:46 - CONCLUSION: 1. No change in cirrhosis, signs of portal venous hypertension and extensive ascites. 2. Cholelithiasis. 3. Slight bibasilar atelectasis. Gabriela Castillo MD Abdomen X-Ray 02/07/17 0000 Signed Impressions: Service Date/Time: Tuesday, February 07, 2017 14:34 - CONCLUSION: 1. No air- filled dilatation of the small or large bowel. 2. No free intraperitoneal air. 3. Degenerative changes and scoliosis of the thoracolumbar spine. Josue Prince MD Laboratory Test 02/08/17 02/08/17 03:17 12:07 Vancomycin Level Trough 19.4 MCG/ML Prothrombin Time 14.0 SEC Prothromb Time International 1.3 RATIO Ratio Lactate Dehydrogenase 220 U/L Date/Time Procedure Status Source Growth 02/06/17 13:30 Gram Stain - Final Resulted Wound Buttock 02/06/17 13:30 Wound Culture - Preliminary Resulted Wound Buttock 02/03/17 21:25 Aerobic Blood Culture - Final Complete Blood Peripheral NO GROWTH IN 5 DAYS 02/03/17 21:25 Anaerobic Blood Culture - Final Complete Blood Peripheral NO GROWTH IN 5 DAYS Physical Examination HEENT: EOMI; normocephalic; atraumatic; no jaundice. CHEST: CTA CARDIAC: RRR ABDOMEN: Soft, extremely distended, TTP RUQ, RLQ; asymmetrical appearance with soft mass like appearance right side, right of scar; bowel sounds are present in all four quadrants. EXTREMITIES: No clubbing, cyanosis, or edema. SKIN: Normal; no rash; no jaundice. TAX MAP TECHNICIAN: No focal deficits; alert and oriented times three. (Jacqueline Ramos) Assessment and Plan Plan ASSESSMENT - cirrhosis - hx hep c s/p successful Harvoni tx per pt. isolated elevation ALP. CT 02-08-17 --> 1. No change in cirrhosis, signs of portal venous hypertension and extensive ascites. 2. Cholelithiasis. Pt denies significant ETOh use. Will do w/u to r/o other causes. - ascites - pt going for paracentesis. New onset, 3 d ago. - cholelithiasis - per CT as above PLAN - low sodium diet - await paracentesis - await ascites cytology, pathology - consider diuretics - ceruloplasmin, AFP, alpha 1 anti trypsin, RON, AMA, ASMA, iron studies - monitor labs - supportive care - further recommendations to follow This pt seen by myself and DR Meza and this note is written on his behalf ( Jacqueline Ramos) Physician Comments seen and examined with RYAN, doing ok. Liver price ordered. Thank you (Wendi Meza MD) Jacqueline Ramos Feb 08, 2017 14:04 Wendi Meza MD Feb 09, 2017 12:45
--- NOTE | 2017-02-08 16:19 | RADRPT ---
EXAM DATE/TIME: 02/08/2017 14:27 [facility] COMPARISON: No previous studies available for comparison. INDICATIONS : [place] MEDICAL HISTORY : Cholelithiasis. Cirrhosis. Renal disease stage 3. Arthritis. SURGICAL HISTORY : section. Umbilical hernia repair. ENCOUNTER: Initial ACUITY: 1 day PAIN SCORE: 7/10 LOCATION: Left lower quadrant FLUID: Total volume of 1100 cc of clear, red fluid was removed. Fluid was sent to lab for ordered studies. Post procedure scanning reveals no hematoma or other complication. TECHNIQUE: 1. Ultrasound guidance for abdominal paracentesis. 2. Paracentesis. The risks, benefits, and alternatives to ultrasound guided paracentesis were explained to the patient in detail including the risk of bleeding and infection. Written and verbal informed consent was obt ained. Examination limited by the patient's large body habitus. No direct ultrasound guidance the 6-Ethiop[place] catheter was placed in the peritoneal space. 1100 cc of clear minimally hemorrhagic fluid was remove d. The patient became uncomfortable and dislodged catheter. We attempt at paracentesis was not performe d. Adequate material was sent for diagnostic studies. The patient tolerated the procedure well and left the ultrasound suite in stable condition. CONCLUSION: Limited uncomplicated ultrasound guided paracentesis. Sheldon Upton MD FACR on February 08, 2017 at 16:16 Board Certified Radiologist. This report was verified electronically.
--- NOTE | 2017-02-08 16:45 | PD.CAR.PN ---
CVT Progress Note Subjective/Hospital Course: 61-year-old moderately overweight female with diabetes mellitus and previous history is of necrotizing fasciitis. This time patient developed a small painful nodule in the left perineal area which expanded and currently is in the form of cellulitis Physical examination reveals redness and cellulitic indurated area of the left perineum extending toward the labia There is no fluctuance and no abscess This is mainly in the form off diffuse phlegmonous infiltrating cellulitis without clear or drainable collection Majority of these will resolve with conservative care in form of antibiotics sits baths and hygiene Some forms of phlegmon will shrink finally down with antibiotic therapy and residual fluctuant area will form at which point that can be drained Right now there is no drainable structure for there is no true abscess present We will follow Thanks Adam Objective: Vital Signs Date Time Temp Pulse Resp B/P Pulse Ox O2 Delivery O2 Flow Rate FiO2 02/08/17 16:12 98.3 81 18 161/75 95 02/08/17 14:11 97.8 69 12 156/78 100 02/08/17 12:05 98.0 76 18 136/63 98 02/08/17 08:35 Room Air 02/08/17 08:07 97.9 68 18 156/72 98 02/08/17 05:30 98.0 81 18 135/70 96 02/08/17 00:55 98.6 81 18 138/88 98 02/07/17 21:47 98.0 85 18 141/87 100 02/07/17 21:00 Room Air Labs: Laboratory Tests Test 02/08/17 12:07 Prothrombin Time 14.0 SEC (9.8-11.6) Prothromb Time International 1.3 RATIO Ratio Lactate Dehydrogenase 220 U/L (84-246) Result Diagram: 02/07/17 0506 02/07/17 0506 Maday Patterson MD Feb 08, 2017 16:45
[2017-02-08 18:33] LABS: PERITONEAL WBC 46 /MM3 (0-10)
[2017-02-08 18:34] LABS: PERITONEAL HISTIOCYTES 8 %; PERITONEAL LYMPHS 14 %; PERITONEAL MESOTHELIAL 1 %; PERITONEAL MONOS 15 %; PERITONEAL POLYS(SEGS) 62 %
[2017-02-08] MEDS: INSULIN DETEMIR 100 UNITS/ML VIAL SQ SCH (21:58)
[2017-02-08] MEDS: traZODone HCL 100 MG TAB PO SCH (22:00)
[2017-02-08] MEDS: MIRTAZAPINE 15 MG TAB PO SCH (22:00)
[2017-02-09 01:25] VITALS: BP 124/75; PULSE 76; RESP 16; TEMP 98.2; O2SAT 98
[2017-02-09] MEDS: VANCOMYCIN INJ 1,250 MG in SODIUM CHLOR 0.9% 250 ML INJ 250 ML IV SCH (03:00)
[2017-02-09] MEDS: AZTREONAM INJ 2,000 MG in SODIUM CHLORIDE 0.9% INJ 100 ML IV SCH ×2 (04:12→14:47)
[2017-02-09 05:30] VITALS: BP 147/71; PULSE 69; RESP 16; TEMP 98.3; O2SAT 96
[2017-02-09] MEDS: MORPHINE SULFATE 4 MG/ML INJ IV PUSH PRN ×5 (05:41→21:17)
[2017-02-09] MEDS: VANCOMYCIN 500 MG VIAL (FOR ORAL USE ONLY) PO SCH ×4 (05:41→23:13)
[2017-02-09] MEDS: INSULIN NovoLIN REGULAR SUPPLEMENTAL SCALE SQ SCH ×4 (05:46→21:22)
[2017-02-09 08:00] VITALS: BP 104/55; PULSE 70; RESP 18; TEMP 98; O2SAT 98
[2017-02-09 08:30] LABS: AUTOMATED NEUTROPHIL # 3.2 TH/MM3 (1.8-7.7); BASOPHIL % 0.5 % (0.0-2.0); EOSINOPHIL # 0.1 TH/MM3 (0-0.4); HEMATOCRIT 29.3 % (35.0-46.0); LYMPH % 16.8 % (9.0-44.0); LYMPHOCYTE # 0.7 TH/MM3 (1.0-4.8); MEAN CELL VOLUME 88.6 FL (80.0-100.0); MEAN CORPUSCULAR HGB CONC 33.8 % (32.0-36.0); MONO % 7.6 % (0.0-8.0); NEUT % 73.1 % (16.0-70.0); PLATELET COUNT 86 TH/MM3 (150-450); RED BLOOD COUNT 3.31 MIL/MM3 (4.00-5.30); RED CELL DISTRIBUTION WIDTH 13.5 % (11.6-17.2); WHITE BLOOD COUNT 4.4 TH/MM3 (4.0-11.0)
[2017-02-09 08:33] LABS: HEMO FLAGS AUTO DIFF
[2017-02-09 08:59] LABS: ANION GAP 8 MEQ/L (5-15); BICARBONATE 17.9 MEQ/L (21.0-32.0); BLOOD UREA NITROGEN 19 MG/DL (7-18); CHLORIDE 115 MEQ/L (98-107); GLOMERULAR FILTRATION RATE 67 ML/MIN (>89); MAGNESIUM 1.5 MG/DL (1.5-2.5); POTASSIUM 4.9 MEQ/L (3.5-5.1); SODIUM (NA) 141 MEQ/L (136-145)
[2017-02-09] MEDS: DOCUSATE SODIUM 50 MG/SENNA 8.6 MG TAB PO SCH ×3 (09:00→21:00)
[2017-02-09 09:03] LABS: FERRITIN 204 NG/ML (8-252); TRANSFERRIN IRON PROFILE 137 MG/DL (200-360)
[2017-02-09 09:08] LABS: PLATELET ESTIMATE SMEAR LOW (NORMAL); PLATELET MORPHOLOGY NORMAL (NORMAL); SCAN/DIFF AUTO DIFF CONFIRMED
[2017-02-09] MEDS: metroNIDAZOLE 500 MG INJ 100 ML IV SCH (10:12)
[2017-02-09] MEDS: MAGNESIUM OXIDE 400 MG TAB PO SCH ×2 (10:14→21:17)
[2017-02-09] MEDS: SODIUM CHLORIDE 0.9% FLUSH 10 ML FLUSH IV FLUSH SCH ×2 (10:14→21:18)
[2017-02-09] MEDS: CHLORHEXIDINE GLUCONATE 4% SOLN 120 ML BTL TOPICAL SCH (10:15)
[2017-02-09 12:00] VITALS: BP 161/97; PULSE 97; RESP 20; TEMP 98.4; O2SAT 100
[2017-02-09] MEDS: INSULIN HUMAN REGULAR 1,000 UNITS/10 ML VIAL SQ SCH ×3 (12:00→17:38)
--- NOTE | 2017-02-09 12:41 | HHI.GIFU ---
Subjective Remarks Pt resting in bed, says she feels better. her abdominal pain is improved after paracentesis yesterday. (Jacqueline Ramos) Objective Vitals I&O Vital Signs Date Time Temp Pulse Resp B/P Pulse Ox O2 Delivery O2 Flow Rate FiO2 02/09/17 10:50 20 02/09/17 08:00 98.0 70 18 104/55 98 02/09/17 05:30 98.3 69 16 147/71 96 02/09/17 01:25 98.2 76 16 124/75 98 02/08/17 20:43 97.8 71 16 148/67 95 02/08/17 16:12 98.3 81 18 161/75 95 02/08/17 16:00 Room Air 02/08/17 14:11 97.8 69 12 156/78 100 I/O 02/08/17 02/08/17 02/08/17 02/09/17 02/09/17 02/09/17 07:00 15:00 23:00 07:00 15:00 23:00 Intake Total 120 ml 452 ml 240 ml 0 ml Output Total 650 ml 900 ml 500 ml Balance -530 ml 452 ml -660 ml -500 ml Intake Oral 120 ml 240 ml 240 ml 0 ml IV Total 212 ml Output Urine Total 650 ml 900 ml 500 ml # Voids 2 # Bowel Movements 0 0 0 Laboratory Laboratory Tests Test 02/08/17 02/09/17 15:05 07:15 Peritoneal Fluid WBC 46 Peritoneal Fluid RBC 1668 Peritoneal Fluid Neutrophils 62 Peritoneal Fluid Lymphocytes 14 Peritoneal Fluid Monocytes 15 Peritoneal Fluid Mesothelial 1 Cells Peritoneal Fluid Histiocytes 8 Peritoneal Fluid Comment White Blood Count 4.4 Red Blood Count 3.31 Hemoglobin 9.9 Hematocrit 29.3 Mean Corpuscular Volume 88.6 Mean Corpuscular Hemoglobin 30.0 Mean Corpuscular Hemoglobin 33.8 Concent Red Cell Distribution Width 13.5 Platelet Count 86 Mean Platelet Volume 8.5 Neutrophils (%) (Auto) 73.1 Lymphocytes (%) (Auto) 16.8 Monocytes (%) (Auto) 7.6 Eosinophils (%) (Auto) 2.0 Basophils (%) (Auto) 0.5 Neutrophils # (Auto) 3.2 Lymphocytes # (Auto) 0.7 Monocytes # (Auto) 0.3 Eosinophils # (Auto) 0.1 Basophils # (Auto) 0.0 CBC Comment AUTO DIFF Differential Comment AUTO DIFF CONFIRMED Platelet Estimate LOW Platelet Morphology Comment NORMAL Red Cell Morphology Comment NORMAL Sodium Level 141 Potassium Level 4.9 Chloride Level 115 Carbon Dioxide Level 17.9 Anion Gap 8 Blood Urea Nitrogen 19 Creatinine 0.87 Estimat Glomerular Filtration 67 Rate Random Glucose 124 Calcium Level 7.6 Magnesium Level 1.5 Iron Level 55 Total Iron Binding Capacity 192 Percent Iron Saturation 28.7 Ferritin 204 Tumor Marker Alpha Fetoprotein 3.7 Hepatitis A IgM Antibody NEGATIVE Hepatitis B Surface Antigen NEGATIVE Hepatitis B Core IgM Antibody NEGATIVE Hepatitis C Antibody REACTIVE Date/Time Procedure Status Source Growth 02/08/17 15:05 Gram Stain - Final Resulted Fluid Peritoneal Fluid 02/08/17 15:05 Body Fluid Culture Resulted Fluid Peritoneal Fluid Pending Imaging Last Impressions Cyst Biopsy Asp-Paracentesis US 02/08/17 0000 Signed Impressions: Service Date/Time: Wednesday, February 08, 2017 14:27 - CONCLUSION: Limited uncomplicated ultrasound guided paracentesis. Sheldon Upton MD FACR Abdomen/Pelvis CT 02/08/17 0000 Signed Impressions: Service Date/Time: Wednesday, February 08, 2017 02:46 - CONCLUSION: 1. No change in cirrhosis, signs of portal venous hypertension and extensive ascites. 2. Cholelithiasis. 3. Slight bibasilar atelectasis. Gabriela Castillo MD Abdomen X-Ray 02/07/17 0000 Signed Impressions: Service Date/Time: Tuesday, February 07, 2017 14:34 - CONCLUSION: 1. No air- filled dilatation of the small or large bowel. 2. No free intraperitoneal air. 3. Degenerative changes and scoliosis of the thoracolumbar spine. Josue Prince MD Physical Exam HEENT: EOMI; normocephalic; atraumatic; no jaundice. CHEST: lung sounds diminished CARDIAC: RRR ABDOMEN: Soft, distended, nontender; asymmetrical appearance with soft mass like appearance right side, right of scar; bowel sounds are present in all four quadrants. EXTREMITIES: No clubbing, cyanosis, or edema. SKIN: Normal; no rash; no jaundice. PSYCHOTHERAPIST COUNSELOR: No focal deficits; alert and oriented times three. (Jacqueline Ramos) Assessment and Plan Plan ASSESSMENT - cirrhosis - hx hep c s/p successful Harvoni tx per pt. isolated elevation ALP. CT 02-08-17 --> 1. No change in cirrhosis, signs of portal venous hypertension and extensive ascites. 2. Cholelithiasis. Pt denies significant ETOh use. AFT 3.7. Ferritin 204, iron 55, TIBC 192. rest of w/u pending - ascites - pt going for paracentesis. New onset, 3 d ago. - cholelithiasis - per CT as above PLAN - low sodium diet - consider diuretics - ceruloplasmin, alpha 1 anti trypsin, RON, AMA, ASMA - monitor labs - supportive care - further recommendations to follow This pt seen by myself and DR Meza and this note is written on his behalf ( Jacqueline Ramos) Physician Comments Seen and examined, recent treatmnet for hep c. Check HCV RNA, add lasix/ aldactone. (Wendi Meza MD) Jacqueline Ramos Feb 09, 2017 12:41 Wendi Meza MD Feb 09, 2017 15:06
--- NOTE | 2017-02-09 13:33 | HHI.PR ---
Subjective Remarks This is a 61 year old female patient with a past medical which includes chronic kidney disease stage III, diabetes mellitus insulin-dependent, cirrhosis, depression and tobacco abuse. Patient presented to [facility] emergency department, with complaints of left inner thigh and buttock pain edema and erythema. Patient reports the area began as a small, "cyst," that has gotten more painful and increased in size over the past week. Patient describes the pain as sharp severe and in tears at time of exam. Patient also reports generalized malaise for the past few days with chills and nausea for the past 2 days. Patient denies any specific trauma or events leading to skin irritation. Patient denies any penile numbness, vaginal discharge, bleeding or rectal discharge. Patient also denies fevers vomiting diarrhea constipation chest pain or shortness of breath. Patient reports that she had similar symptoms on the right inner thigh which required surgical intervention in the past. Pelvic CT scan done at [facility] [place] she was left perineal cellulitis with no abscess. 02/03: Seen in her bedroom in the presence of nurse, worsening as per the marked area is smaller than the area or erythema seen on physical exam also the patient complaint of chills, she is afebrile, uncontrolled blood sugar and Hypertension. 02/04: Stable in her bedroom, improving clinically but continue with induration, and may need surgery, as per ID and General Surgery, continue with Pain adjusted medicines. no nausea, vomit, has loose stools with positive C Diff on Vancomycin by mouth and Flagyl IV 02/05: Patient stable in her bedroom, seen in the presence of nurse Miss Person, no nausea, vomit, improved bowel movements. 02/06: Seen in her bedroom, discussed with nurse Miss Chaidez, no surgical management as per General Surgery. 02/07; Patient with Pain on palpation on the buttock area and perineal area, definitely will need Surgical management. 02/08: Seen with nurse Miss Badillo, the patient has abdominal discomfort and during the night had a new CT abdomen and Pelvis, she has increased Cirrhosis, consult placed for Paracentesis, get INR stat, also will consult GI specialist. 02/09: Stable after Paracentesis performed and I and D, with her relatives in the room, discussed with ID specialist Doctor Davidson will continue present antibiotics management will try to discharge in am tomorrow or next Monday02/13/17, No nausea, vomit or diarrhea. Objective Vital Signs Date Time Temp Pulse Resp B/P Pulse Ox O2 Delivery O2 Flow Rate FiO2 02/09/17 10:50 20 02/09/17 08:00 98.0 70 18 104/55 98 02/09/17 05:30 98.3 69 16 147/71 96 02/09/17 01:25 98.2 76 16 124/75 98 02/08/17 20:43 97.8 71 16 148/67 95 02/08/17 16:12 98.3 81 18 161/75 95 02/08/17 16:00 Room Air 02/08/17 14:11 97.8 69 12 156/78 100 I/O 02/08/17 02/08/17 02/08/17 02/09/17 02/09/17 02/09/17 07:00 15:00 23:00 07:00 15:00 23:00 Intake Total 120 ml 452 ml 240 ml 0 ml Output Total 650 ml 900 ml 500 ml Balance -530 ml 452 ml -660 ml -500 ml Intake Oral 120 ml 240 ml 240 ml 0 ml IV Total 212 ml Output Urine Total 650 ml 900 ml 500 ml # Voids 2 # Bowel Movements 0 0 0 Result Diagram: 02/09/1715 02/09/1715 Imaging Last Impressions Cyst Biopsy Asp-Paracentesis US 02/08/17 0000 Signed Impressions: Service Date/Time: Wednesday, February 08, 2017 14:27 - CONCLUSION: Limited uncomplicated ultrasound guided paracentesis. Sheldon Upton MD FACR Abdomen/Pelvis CT 02/08/17 0000 Signed Impressions: Service Date/Time: Wednesday, February 08, 2017 02:46 - CONCLUSION: 1. No change in cirrhosis, signs of portal venous hypertension and extensive ascites. 2. Cholelithiasis. 3. Slight bibasilar atelectasis. Gabriela Castillo MD Abdomen X-Ray 02/07/17 0000 Signed Impressions: Service Date/Time: Tuesday, February 07, 2017 14:34 - CONCLUSION: 1. No air- filled dilatation of the small or large bowel. 2. No free intraperitoneal air. 3. Degenerative changes and scoliosis of the thoracolumbar spine. Josue Prince MD Procedures Status post I and D. Other Results Laboratory Tests Test 02/07/17 02/08/17 02/08/17 02/08/17 05:06 03:17 12:07 15:05 Protein Corrected Calcium 7.7 MG/DL Total Bilirubin 0.4 MG/DL Aspartate Amino Transf 17 U/L (AST/SGOT) Alanine Aminotransferase 14 U/L (ALT/SGPT) Alkaline Phosphatase 137 U/L Total Protein 5.9 GM/DL Albumin 1.8 GM/DL Vancomycin Level Trough 19.4 MCG/ML Prothrombin Time 14.0 SEC Prothromb Time International 1.3 RATIO Ratio Lactate Dehydrogenase 220 U/L Peritoneal Fluid WBC 46 /MM3 Peritoneal Fluid RBC 1668 /MM3 Peritoneal Fluid Neutrophils 62 % Peritoneal Fluid Lymphocytes 14 % Peritoneal Fluid Monocytes 15 % Peritoneal Fluid Mesothelial 1 % Cells Peritoneal Fluid Histiocytes 8 % Peritoneal Fluid Comment Test 02/09/17 07:15 White Blood Count 4.4 TH/MM3 Red Blood Count 3.31 MIL/MM3 Hemoglobin 9.9 GM/DL Hematocrit 29.3 % Mean Corpuscular Volume 88.6 FL Mean Corpuscular Hemoglobin 30.0 PG Mean Corpuscular Hemoglobin 33.8 % Concent Red Cell Distribution Width 13.5 % Platelet Count 86 TH/MM3 Mean Platelet Volume 8.5 FL Neutrophils (%) (Auto) 73.1 % Lymphocytes (%) (Auto) 16.8 % Monocytes (%) (Auto) 7.6 % Eosinophils (%) (Auto) 2.0 % Basophils (%) (Auto) 0.5 % Neutrophils # (Auto) 3.2 TH/MM3 Lymphocytes # (Auto) 0.7 TH/MM3 Monocytes # (Auto) 0.3 TH/MM3 Eosinophils # (Auto) 0.1 TH/MM3 Basophils # (Auto) 0.0 TH/MM3 CBC Comment AUTO DIFF Differential Comment AUTO DIFF CONFIRMED Platelet Estimate LOW Platelet Morphology Comment NORMAL Red Cell Morphology Comment NORMAL Sodium Level 141 MEQ/L Potassium Level 4.9 MEQ/L Chloride Level 115 MEQ/L Carbon Dioxide Level 17.9 MEQ/L Anion Gap 8 MEQ/L Blood Urea Nitrogen 19 MG/DL Creatinine 0.87 MG/DL Estimat Glomerular Filtration 67 ML/MIN Rate Random Glucose 124 MG/DL Calcium Level 7.6 MG/DL Magnesium Level 1.5 MG/DL Iron Level 55 MCG/DL Total Iron Binding Capacity 192 MCG/DL Percent Iron Saturation 28.7 % Ferritin 204 NG/ML Tumor Marker Alpha Fetoprotein 3.7 NG/ML Hepatitis A IgM Antibody NEGATIVE Hepatitis B Surface Antigen NEGATIVE Hepatitis B Core IgM Antibody NEGATIVE Hepatitis C Antibody REACTIVE Objective Remarks GENERAL: No acute distress. SKIN: dressed area. HEAD: Atraumatic. Normocephalic. EYES: Pupils equal and round. No scleral icterus. No injection or drainage. ENT: No nasal bleeding or discharge. Mucous membranes pink and moist. NECK: Trachea midline. No JVD. CARDIOVASCULAR: Regular rate and rhythm. RESPIRATORY: No accessory muscle use. Clear to auscultation. Breath sounds equal bilaterally. GASTROINTESTINAL: Abdomen soft, non-tender, distended. MUSCULOSKELETAL: Extremities without clubbing, cyanosis, or edema. No obvious deformities. NEUROLOGICAL: Awake and alert. No obvious cranial nerve deficits. PSYCHIATRIC: Appropriate mood and affect; insight and judgment normal. Medications and IVs Current Medications Medications (Trade) Dose Ordered Sig/Lotus Route Start Time Stop Time Status Last Admin (NS Flush) 2 ml UNSCH PRN IV FLUSH 02/01/17 01:30 02/01/17 22:06 (NS Flush) 2 ml BID IV FLUSH 02/01/17 09:00 02/09/17 10:14 (Tylenol) 650 mg Q4H PRN PO 02/01/17 01:30 02/03/17 18:53 (Zofran Inj) 4 mg Q6H PRN IVP 02/01/17 01:30 02/04/17 05:14 (Narcan Inj) 0.4 mg UNSCH PRN IV 02/01/17 01:30 (Meghana-Colace) 1 tab BID PO 02/01/17 09:00 02/03/17 22:02 (Milk Of Magnesia Liq) 30 ml Q12H PRN PO 02/01/17 01:30 (Dulcolax Supp) 10 mg DAILY PRN RECTAL 02/01/17 01:30 (D50w (Vial) Inj) 50 ml UNSCH PRN IV 02/01/17 01:45 Glucagon 1 mg 1 mg UNSCH PRN OTHER 02/01/17 01:45 Pharmacy Profile Note 0 ml @ 0 mls/hr UNSCH OTHER 02/01/17 02:45 Aztreonam 2000 mg/ Sodium Chloride 100 ml @ 200 mls/hr Q6H IV 02/01/17 17:00 02/09/17 04:12 (Flagyl 500 Mg Inj) 100 ml @ 100 mls/hr Q8H IV 02/01/17 16:00 02/09/17 10:12 (Benadryl Inj) 25 mg Q6H PRN IV PUSH 02/01/17 15:45 (Hibiclens 4% Top Soln) 1 applic DAILY TOPICAL 02/01/17 16:45 02/09/17 10:15 (Remeron) 15 mg HS PO 02/02/17 21:00 02/08/17 22:00 (Desyrel) 200 mg HS PO 02/02/17 21:15 02/08/17 22:00 (Levemir Inj) 10 units HS SQ 02/03/17 21:00 02/08/17 21:58 (NovoLIN R INJ) 3 units TIDAC SQ 02/03/17 17:00 02/09/17 12:00 Enalaprilat 0.65 mg 0.65 mg Q8H PRN IV PUSH 02/03/17 16:15 02/05/17 16:44 (NS 1000 ml Inj) 1,000 ml @ 84 mls/hr [id number] IV 02/03/17 17:00 Hold 02/07/17 16:10 (VANCOMYCIN for oral use only) 500 mg Q6H PO 02/03/17 23:00 02/09/17 11:55 Morphine Sulfate 3 mg 3 mg Q3H PRN IV PUSH 02/04/17 18:00 02/09/17 10:23 (Vancomycin Inj/ NS 250 ml Inj) 262.5 ml @ 250 mls/hr Q24H IV 02/06/17 03:00 02/09/17 03:00 (Mag-Ox) 400 mg DAILY PO 02/07/17 11:00 02/09/17 10:14 Miscellaneous Information SPECIFIC LAB TO BE DRAWN:VANCOMYCIN TROUGH DATE TO... ONCE ONCE .XX 02/10/17 02:45 02/10/17 02:46 A/P Assessment and Plan 1. Cellulitis/phlegmon on Left Perineal area Left buttock and labia, CT not found Felisha, improving on antibiotics as per ID specialist Doctor Stuart, had Allergic Reaction to Penicillin mild to moderate resolved, on Azactam and Flagyl and Vancomycin. not found abscess for drainage as per Doctor Maday, today was recommended by ID specialist to continue Vancomycin she will try to discharge if possible tomorrow or next Monday. 2. CKD III stable 3. DM II insulin dependent, better control continue titration of Insulin. 4. Depression continue Home medicines. 5. Tobacco dependency strongly recommended to stop smoking. 6. Thrombocytopenia improving to 86 Probable secondary to alcohol abuse. 7. Hypertension mild uncontrol at this time continue present care. 8. C Diff positive to continue Vancomycin by mouth for 2 more weeks. 9. Hypomagnesemia replacement continues. 10. Ascites status post Paracentesis 11. Hepatitis C status post successful Ledipasvir/Sofosbuvir HARVONI Therapy DVT prophylaxis with SCDs Discussed with patient and all questions answered to the best of my abilities. Discussed with Doctor Zee Davidson Infectious Disease specialist recommendations appreciated. Discharge Planning Once cleared by ID specialist. Thang Cheema MD Feb 09, 2017 13:33 Thang Cheema MD Feb 09, 2017 13:33 Thang Cheema MD Feb 09, 2017 13:33
--- NOTE | 2017-02-09 15:16 | HHI.IDPN ---
Subjective Subjective Remarks no fever feels better after paracenthisis peritonela fluid not cw infx doing well afebrile Dr Patterson input appreciated - no need for I+D normal BMs Antibiotics azactam flagyl vanco iv vanco po Allergies: Coded Allergies: Egg Allergy (Verified Allergy, Unknown, 01/31/17) Levaquin (Verified Allergy, Unknown, 01/31/17) Desha (Verified Allergy, Unknown, 01/31/17) Pear (Verified Allergy, Unknown, 01/31/17) Penicillin (Verified Allergy, Unknown, 01/31/17) Mentone (Verified Allergy, Unknown, 01/31/17) Objective . Vital Signs Date Time Temp Pulse Resp B/P Pulse Ox O2 Delivery O2 Flow Rate FiO2 02/09/17 12:00 98.4 97 20 161/97 100 02/09/17 10:50 20 02/09/17 08:00 98.0 70 18 104/55 98 02/09/17 05:30 98.3 69 16 147/71 96 02/09/17 01:25 98.2 76 16 124/75 98 02/08/17 20:43 97.8 71 16 148/67 95 02/08/17 16:12 98.3 81 18 161/75 95 02/08/17 16:00 Room Air 02/08/17 02/08/17 02/09/17 15:00 23:00 07:00 Intake Total 452 ml 240 ml 0 ml Output Total 900 ml 500 ml Balance 452 ml -660 ml -500 ml Intake Oral 240 ml 240 ml 0 ml IV Total 212 ml Output Urine Total 900 ml 500 ml # Voids 2 # Bowel Movements 0 0 . Laboratory Tests Test 02/09/17 07:15 White Blood Count 4.4 TH/MM3 Red Blood Count 3.31 MIL/MM3 Hemoglobin 9.9 GM/DL Hematocrit 29.3 % Mean Corpuscular Volume 88.6 FL Mean Corpuscular Hemoglobin 30.0 PG Mean Corpuscular Hemoglobin 33.8 % Concent Red Cell Distribution Width 13.5 % Platelet Count 86 TH/MM3 Mean Platelet Volume 8.5 FL Neutrophils (%) (Auto) 73.1 % Lymphocytes (%) (Auto) 16.8 % Monocytes (%) (Auto) 7.6 % Eosinophils (%) (Auto) 2.0 % Basophils (%) (Auto) 0.5 % Neutrophils # (Auto) 3.2 TH/MM3 Lymphocytes # (Auto) 0.7 TH/MM3 Monocytes # (Auto) 0.3 TH/MM3 Eosinophils # (Auto) 0.1 TH/MM3 Basophils # (Auto) 0.0 TH/MM3 CBC Comment AUTO DIFF Differential Comment AUTO DIFF CONFIRMED Platelet Estimate LOW Platelet Morphology Comment NORMAL Red Cell Morphology Comment NORMAL Laboratory Tests Test 02/08/17 02/09/17 12:07 07:15 Lactate Dehydrogenase 220 U/L Sodium Level 141 MEQ/L Potassium Level 4.9 MEQ/L Chloride Level 115 MEQ/L Carbon Dioxide Level 17.9 MEQ/L Anion Gap 8 MEQ/L Blood Urea Nitrogen 19 MG/DL Creatinine 0.87 MG/DL Estimat Glomerular Filtration 67 ML/MIN Rate Random Glucose 124 MG/DL Calcium Level 7.6 MG/DL Magnesium Level 1.5 MG/DL Iron Level 55 MCG/DL Total Iron Binding Capacity 192 MCG/DL Percent Iron Saturation 28.7 % Ferritin 204 NG/ML Tumor Marker Alpha Fetoprotein 3.7 NG/ML Microbiology Date/Time Procedure Status Source Growth 02/08/17 15:05 Gram Stain - Final Resulted Fluid Peritoneal Fluid 02/08/17 15:05 Body Fluid Culture - Preliminary Resulted Fluid Peritoneal Fluid NO GROWTH IN 24 HOURS. Imaging Last Impressions Cyst Biopsy Asp-Paracentesis US 02/08/17 0000 Signed Impressions: Service Date/Time: Wednesday, February 08, 2017 14:27 - CONCLUSION: Limited uncomplicated ultrasound guided paracentesis. Sheldon Upton MD FACR Abdomen/Pelvis CT 02/08/17 0000 Signed Impressions: Service Date/Time: Wednesday, February 08, 2017 02:46 - CONCLUSION: 1. No change in cirrhosis, signs of portal venous hypertension and extensive ascites. 2. Cholelithiasis. 3. Slight bibasilar atelectasis. Gabriela Castillo MD Abdomen X-Ray 02/07/17 0000 Signed Impressions: Service Date/Time: Tuesday, February 07, 2017 14:34 - CONCLUSION: 1. No air- filled dilatation of the small or large bowel. 2. No free intraperitoneal air. 3. Degenerative changes and scoliosis of the thoracolumbar spine. Josue Prince MD Physical Exam CONSTITUTIONAL/GENERAL: This is an obese female patient, in moderate apparent distress. looks better TUBES/LINES/DRAINS: SKIN: No jaundice, no rash STATUS LOCALIS: Perineal area on the L and lower buttock is no longer tender to palpation, not indurated, no fluctuance - much improved edema and erythema of L thigh, perineal area L labia nad L buttock - resolved small opening L buttock with moderate amout n of salmon coloured odorless pus EYES: No scleral icterus. CARDIOVASCULAR: Regular rate and rhythm without murmurs, gallops, or rubs. No JVD. Peripheral pulses symmetric. RESPIRATORY/CHEST: Symmetric, unlabored respirations. Clear to auscultation. Breath sounds equal bilaterally. No wheezes, rales, or rhonchi. GASTROINTESTINAL: Abdomen soft, obese not tender to palpation diffusely and no longer distended. No hepato-splenomegaly, or palpable masses. Bowel sounds present. GENITOURINARY: Without palpable bladder distension. MUSCULOSKELETAL: Extremities without clubbing, cyanosis, or edema. NEUROLOGICAL: Awake and alert. non focal PSYCHIATRIC: calm, pleasant Assessment & Plan Remarks cellulitis/phegmone, now abscess clinically of L perineal area L buttock and L labia , CT not cw Felisha -improving after drainaga increased - clx wo growth -likley 2/2 previous abx use + fluctuance on physical exam to suggest the abscess - Gen sx ff, no surgical intervention at this point - mixed layla on the Gstain, but probably MRSA/MSSA - clx with nl skin layla Multiple medical problems: DM cirrhosis, tob+ Allergic reaction to PCN, mild to moderate: resolved C diff -no e/o ileus - diarrhea resolved High grade fever, sepsis - resolved Massive ascites - pt has liver cirrosis - h/o HCV, sp tx - for paracentesis REC'S: - d c azactam, flagyl - cont IV vanco for now, eventually transition to PO abx (clindamycin 2/2 high grade PCn allergy) - will need 5- 7 more days - cont oral vanco for C.diff x 2 weeks total - will probably OK to go in 1-2 days providing she remains afebrile, improving local smx - anticipate dc on po abx Dw Zee Payne MD Feb 09, 2017 15:15
[2017-02-09 16:00] VITALS: BP 133/62; PULSE 76; RESP 18; TEMP 99; O2SAT 97
[2017-02-09 20:00] VITALS: BP 128/85; PULSE 78; RESP 18; TEMP 98; O2SAT 98
[2017-02-09] MEDS: traZODone HCL 100 MG TAB PO SCH (21:16)
[2017-02-09] MEDS: MIRTAZAPINE 15 MG TAB PO SCH (21:16)
[2017-02-09] MEDS: INSULIN DETEMIR 100 UNITS/ML VIAL SQ SCH (21:20)
[2017-02-10] MEDS: MORPHINE SULFATE 4 MG/ML INJ IV PUSH PRN ×5 (00:36→12:56)
[2017-02-10] MEDS: SODIUM CHLORIDE 0.9% FLUSH 10 ML FLUSH IV FLUSH PRN (00:37)
[2017-02-10] MEDS ORDERED: PHARMACY ORDERED LAB ONE (02:45)
[2017-02-10] MEDS: VANCOMYCIN INJ 1,250 MG in SODIUM CHLOR 0.9% 250 ML INJ 250 ML IV SCH (03:41)
[2017-02-10 05:00] VITALS: BP 152/75; PULSE 73; RESP 20; TEMP 97.8; O2SAT 97
[2017-02-10] MEDS: VANCOMYCIN 500 MG VIAL (FOR ORAL USE ONLY) PO SCH ×3 (05:44→17:22)
[2017-02-10] MEDS: INSULIN NovoLIN REGULAR SUPPLEMENTAL SCALE SQ SCH ×3 (06:26→16:00)
[2017-02-10 08:14] VITALS: BP 129/90; PULSE 74; RESP 18; TEMP 97.9; O2SAT 98
--- NOTE | 2017-02-10 08:31 | HHI.PR ---
Subjective Remarks Patient says she has some lower abdominal cramps. Says she had a normal BM . No fever or chills. No n/v/d/c. Denies chest pain or sob. No drainage form the wound. Objective Vitals Vital Signs Date Time Temp Pulse Resp B/P Pulse Ox O2 Delivery O2 Flow Rate FiO2 02/10/17 08:14 97.9 74 18 129/90 98 02/10/17 05:00 97.8 73 20 152/75 97 02/10/17 04:00 Room Air 02/10/17 00:00 Room Air 02/09/17 20:00 Room Air 02/09/17 20:00 98.0 78 18 128/85 98 02/09/17 16:00 99.0 76 18 133/62 97 02/09/17 15:52 100 Room Air 02/09/17 15:25 18 02/09/17 12:00 98.4 97 20 161/97 100 I/O 02/09/17 02/09/17 02/09/17 02/10/17 02/10/17 02/10/17 07:00 15:00 23:00 07:00 15:00 23:00 Intake Total 0 ml 240 ml 250 ml Output Total 500 ml 700 ml 475 ml Balance -500 ml -460 ml -475 ml 250 ml Intake Oral 0 ml 240 ml IV Total 250 ml Output Urine Total 500 ml 700 ml 475 ml # Bowel Movements 0 1 0 Result Diagram: 02/09/17 0715 02/09/17 0715 Imaging Last Impressions Cyst Biopsy Asp-Paracentesis US 02/08/17 0000 Signed Impressions: Service Date/Time: Wednesday, February 08, 2017 14:27 - CONCLUSION: Limited uncomplicated ultrasound guided paracentesis. Sheldon Upton MD FACR Abdomen/Pelvis CT 02/08/17 0000 Signed Impressions: Service Date/Time: Wednesday, February 08, 2017 02:46 - CONCLUSION: 1. No change in cirrhosis, signs of portal venous hypertension and extensive ascites. 2. Cholelithiasis. 3. Slight bibasilar atelectasis. Gabriela Castillo MD Abdomen X-Ray 02/07/17 0000 Signed Impressions: Service Date/Time: Tuesday, February 07, 2017 14:34 - CONCLUSION: 1. No air- filled dilatation of the small or large bowel. 2. No free intraperitoneal air. 3. Degenerative changes and scoliosis of the thoracolumbar spine. Josue Prince MD Objective Remarks GENERAL: No acute distress. SKIN: dressed area. HEAD: Atraumatic. Normocephalic. EYES: Pupils equal and round. No scleral icterus. No injection or drainage. ENT: No nasal bleeding or discharge. Mucous membranes pink and moist. NECK: Trachea midline. No JVD. CARDIOVASCULAR: Regular rate and rhythm. RESPIRATORY: No accessory muscle use. Clear to auscultation. Breath sounds equal bilaterally. GASTROINTESTINAL: Abdomen soft, non-tender, distended. MUSCULOSKELETAL: Extremities without clubbing, cyanosis, or edema. No obvious deformities. NEUROLOGICAL: Awake and alert. No obvious cranial nerve deficits. PSYCHIATRIC: Appropriate mood and affect; insight and judgment normal. A/P Problem List: (1) Cellulitis ICD Code: L03.90 Status: Acute (2) DM (diabetes mellitus) ICD Code: E11.9 Status: Chronic (3) Thrombocytopenia ICD Code: D69.6 Status: Chronic Assessment and Plan Cellulitis/phlegmon on Left Perineal area Left buttock and labia, CT not found Felisha, improving on antibiotics as per ID specialist Doctor Stuart, had Allergic Reaction to Penicillin mild to moderate resolved, on Azactam and Flagyl and Vancomycin. not found abscess for drainage as per Doctor Maday, today was recommended by ID specialist to continue Vancomycin she will try to discharge if possible tomorrow or next Monday. CKD III stable DM II insulin dependent, better control continue titration of Insulin. Depression continue Home medicines. Tobacco dependency strongly recommended to stop smoking. Thrombocytopenia improving to 86 Probable secondary to alcohol abuse. Hypertension mild uncontrol at this time continue present care. C Diff positive to continue Vancomycin by mouth for 2 more weeks. Hypomagnesemia replacement continues. Ascites status post Paracentesis Hepatitis C status post successful Ledipasvir/Sofosbuvir HARVONI Therapy DVT prophylaxis with SCDs Discussed with patient and all questions answered to the best of my abilities. Discussed with the patient, nurse, ID physician Dr Maria. Discharge Planning DC once improved and cleared by ID specialist. DC on oral abx clinda 2/2/ PNC allergy (5-7 days) and vanco. Nena Eagle MD Feb 10, 2017 08:31
[2017-02-10] MEDS ORDERED: FUROSEMIDE 40 MG TAB PO SCH (09:00)
[2017-02-10] MEDS ORDERED: SPIRONOLACTONE 50 MG TAB PO SCH (09:00)
[2017-02-10] MEDS: CHLORHEXIDINE GLUCONATE 4% SOLN 120 ML BTL TOPICAL SCH (09:00)
[2017-02-10] MEDS: SODIUM CHLORIDE 0.9% FLUSH 10 ML FLUSH IV FLUSH SCH (09:33)
[2017-02-10] MEDS: MAGNESIUM OXIDE 400 MG TAB PO SCH (09:34)
[2017-02-10] MEDS: DOCUSATE SODIUM 50 MG/SENNA 8.6 MG TAB PO SCH (09:34)
[2017-02-10] MEDS: INSULIN HUMAN REGULAR 1,000 UNITS/10 ML VIAL SQ SCH ×3 (12:00→17:00)
[2017-02-10 12:24] VITALS: BP 163/79; PULSE 73; RESP 18; TEMP 98; O2SAT 100
[2017-02-10 12:50] LABS: BODY FLUID LDH 36 U/L (()); BODY FLUID LDH SOURCE PERITONEAL (())
--- NOTE | 2017-02-10 14:17 | HHI.GIFU ---
Subjective Remarks Pt resting in bed. C/o RUQ still. Can only lay on left side. Objective Vitals I&O Vital Signs Date Time Temp Pulse Resp B/P Pulse Ox O2 Delivery O2 Flow Rate FiO2 02/10/17 12:24 98.0 73 18 163/79 100 02/10/17 10:00 20 02/10/17 08:14 97.9 74 18 129/90 98 02/10/17 05:00 97.8 73 20 152/75 97 02/10/17 04:00 Room Air 02/10/17 00:00 Room Air 02/09/17 20:00 Room Air 02/09/17 20:00 98.0 78 18 128/85 98 02/09/17 16:00 99.0 76 18 133/62 97 02/09/17 15:52 100 Room Air I/O 02/09/17 02/09/17 02/09/17 02/10/17 02/10/17 02/10/17 07:00 15:00 23:00 07:00 15:00 23:00 Intake Total 0 ml 240 ml 250 ml Output Total 500 ml 700 ml 475 ml Balance -500 ml -460 ml -475 ml 250 ml Intake Oral 0 ml 240 ml IV Total 250 ml Output Urine Total 500 ml 700 ml 475 ml # Bowel Movements 0 1 0 Laboratory Laboratory Tests Test 02/10/17 02:50 Vancomycin Level Trough 19.6 Date/Time Procedure Status Source Growth 02/08/17 15:05 Gram Stain - Final Resulted Fluid Peritoneal Fluid 02/08/17 15:05 Body Fluid Culture - Preliminary Resulted Fluid Peritoneal Fluid NO GROWTH IN 48 HOURS. Imaging Last Impressions Cyst Biopsy Asp-Paracentesis US 02/08/17 0000 Signed Impressions: Service Date/Time: Wednesday, February 08, 2017 14:27 - CONCLUSION: Limited uncomplicated ultrasound guided paracentesis. Sheldon Upton MD FACR Abdomen/Pelvis CT 02/08/17 0000 Signed Impressions: Service Date/Time: Wednesday, February 08, 2017 02:46 - CONCLUSION: 1. No change in cirrhosis, signs of portal venous hypertension and extensive ascites. 2. Cholelithiasis. 3. Slight bibasilar atelectasis. Gabriela Castillo MD Abdomen X-Ray 02/07/17 0000 Signed Impressions: Service Date/Time: Tuesday, February 07, 2017 14:34 - CONCLUSION: 1. No air- filled dilatation of the small or large bowel. 2. No free intraperitoneal air. 3. Degenerative changes and scoliosis of the thoracolumbar spine. Josue Prince MD Physical Exam HEENT: EOMI; normocephalic; atraumatic; no jaundice. CHEST: lung sounds diminished CARDIAC: RRR ABDOMEN: Soft, distended, nontender; asymmetrical appearance with soft mass like appearance right side, right of scar; bowel sounds are present in all four quadrants. EXTREMITIES: No clubbing, cyanosis, or edema. SKIN: Normal; no rash; no jaundice. MOTOR VEHICLE DISPATCHER: No focal deficits; alert and oriented times three. Assessment and Plan Plan ASSESSMENT - cirrhosis - hx hep c s/p successful Harvoni tx per pt. isolated elevation ALP. CT 02-08-17 --> 1. No change in cirrhosis, signs of portal venous hypertension and extensive ascites. 2. Cholelithiasis. Pt denies significant ETOh use. AFT 3.7. RON neg. alpha 1 antitrypsin 152. Ferritin 204, iron 55, TIBC 192. rest of w/u pending - ascites - s/p paracentesis. ascites was New onset. - cholelithiasis - per CT as above PLAN - low sodium diet - continue diuretics - await rest of liver w/u - monitor labs - supportive care - further recommendations to follow This pt seen by myself and DR Meza and this note is written on his behalf Jacqueline Ramos Feb 10, 2017 14:17
--- NOTE | 2017-02-10 14:43 | HHI.IDPN ---
Subjective Subjective Remarks Doing well no diarrhea no fever L buttock pain improved Antibiotics vanco iv vanco po Allergies: Coded Allergies: Egg Allergy (Verified Allergy, Unknown, 01/31/17) Levaquin (Verified Allergy, Unknown, 01/31/17) Harding (Verified Allergy, Unknown, 01/31/17) Pear (Verified Allergy, Unknown, 01/31/17) Penicillin (Verified Allergy, Unknown, 01/31/17) Trego (Verified Allergy, Unknown, 01/31/17) Objective . Vital Signs Date Time Temp Pulse Resp B/P Pulse Ox O2 Delivery O2 Flow Rate FiO2 02/10/17 13:10 8 02/10/17 12:24 98.0 73 18 163/79 100 02/10/17 08:14 97.9 74 18 129/90 98 02/10/17 05:00 97.8 73 20 152/75 97 02/10/17 04:00 Room Air 02/10/17 00:00 Room Air 02/09/17 20:00 Room Air 02/09/17 20:00 98.0 78 18 128/85 98 02/09/17 16:00 99.0 76 18 133/62 97 02/09/17 15:52 100 Room Air 02/09/17 02/09/17 02/10/17 15:00 23:00 07:00 Intake Total 240 ml 250 ml Output Total 700 ml 475 ml Balance -460 ml -475 ml 250 ml Intake Oral 240 ml IV Total 250 ml Output Urine Total 700 ml 475 ml # Bowel Movements 1 0 . Laboratory Tests Test 02/09/17 07:15 White Blood Count 4.4 TH/MM3 Red Blood Count 3.31 MIL/MM3 Hemoglobin 9.9 GM/DL Hematocrit 29.3 % Mean Corpuscular Volume 88.6 FL Mean Corpuscular Hemoglobin 30.0 PG Mean Corpuscular Hemoglobin 33.8 % Concent Red Cell Distribution Width 13.5 % Platelet Count 86 TH/MM3 Mean Platelet Volume 8.5 FL Neutrophils (%) (Auto) 73.1 % Lymphocytes (%) (Auto) 16.8 % Monocytes (%) (Auto) 7.6 % Eosinophils (%) (Auto) 2.0 % Basophils (%) (Auto) 0.5 % Neutrophils # (Auto) 3.2 TH/MM3 Lymphocytes # (Auto) 0.7 TH/MM3 Monocytes # (Auto) 0.3 TH/MM3 Eosinophils # (Auto) 0.1 TH/MM3 Basophils # (Auto) 0.0 TH/MM3 CBC Comment AUTO DIFF Differential Comment AUTO DIFF CONFIRMED Platelet Estimate LOW Platelet Morphology Comment NORMAL Red Cell Morphology Comment NORMAL Laboratory Tests Test 02/09/17 07:15 Sodium Level 141 MEQ/L Potassium Level 4.9 MEQ/L Chloride Level 115 MEQ/L Carbon Dioxide Level 17.9 MEQ/L Anion Gap 8 MEQ/L Blood Urea Nitrogen 19 MG/DL Creatinine 0.87 MG/DL Estimat Glomerular Filtration 67 ML/MIN Rate Random Glucose 124 MG/DL Calcium Level 7.6 MG/DL Magnesium Level 1.5 MG/DL Iron Level 55 MCG/DL Total Iron Binding Capacity 192 MCG/DL Percent Iron Saturation 28.7 % Ferritin 204 NG/ML Tumor Marker Alpha Fetoprotein 3.7 NG/ML Pendm-0-[id number] 152 mg/dL Microbiology Date/Time Procedure Status Source Growth 02/08/17 15:05 Gram Stain - Final Resulted Fluid Peritoneal Fluid 02/08/17 15:05 Body Fluid Culture - Preliminary Resulted Fluid Peritoneal Fluid NO GROWTH IN 48 HOURS. Imaging Last Impressions Cyst Biopsy Asp-Paracentesis US 02/08/17 0000 Signed Impressions: Service Date/Time: Wednesday, February 08, 2017 14:27 - CONCLUSION: Limited uncomplicated ultrasound guided paracentesis. Sheldon Upton MD FACR Abdomen/Pelvis CT 02/08/17 0000 Signed Impressions: Service Date/Time: Wednesday, February 08, 2017 02:46 - CONCLUSION: 1. No change in cirrhosis, signs of portal venous hypertension and extensive ascites. 2. Cholelithiasis. 3. Slight bibasilar atelectasis. Gabriela Castillo MD Abdomen X-Ray 02/07/17 0000 Signed Impressions: Service Date/Time: Tuesday, February 07, 2017 14:34 - CONCLUSION: 1. No air- filled dilatation of the small or large bowel. 2. No free intraperitoneal air. 3. Degenerative changes and scoliosis of the thoracolumbar spine. Josue Prince MD Physical Exam CONSTITUTIONAL/GENERAL: This is an obese female patient, in moderate apparent distress. looks better TUBES/LINES/DRAINS: SKIN: No jaundice, no rash STATUS LOCALIS: Perineal area on the L and lower buttock is no longer tender to palpation, not indurated, no fluctuance - much improved edema and erythema of L thigh, perineal area L labia nad L buttock - resolved small opening L buttock with still at least moderate amout n of salmon coloured odorless pus EYES: No scleral icterus. CARDIOVASCULAR: Regular rate and rhythm without murmurs, gallops, or rubs. No JVD. Peripheral pulses symmetric. RESPIRATORY/CHEST: Symmetric, unlabored respirations. Clear to auscultation. Breath sounds equal bilaterally. No wheezes, rales, or rhonchi. GASTROINTESTINAL: Abdomen soft, obese not tender to palpation diffusely and again moderately distended. No hepato-splenomegaly, or palpable masses. Bowel sounds present. GENITOURINARY: Without palpable bladder distension. MUSCULOSKELETAL: Extremities without clubbing, cyanosis, or edema. NEUROLOGICAL: Awake and alert. non focal PSYCHIATRIC: calm, pleasant Assessment & Plan Remarks cellulitis/phegmone, now abscess clinically of L perineal area L buttock and L labia , CT not cw Felisha -improving after drainage increased - clx wo growth -likley 2/2 previous abx use + fluctuance on physical exam to suggest the abscess - Gen sx ff, no surgical intervention at this point - mixed layla on the Gstain, but probably MRSA/MSSA - clx with nl skin layla Multiple medical problems: DM cirrhosis, tob+ Allergic reaction to PCN, mild to moderate: resolved C diff -no e/o ileus - diarrhea resolved High grade fever, sepsis - resolved Massive ascites - pt has liver cirrosis - h/o HCV, sp tx - for paracentesis REC'S: -OK to dc pt home on PO abx (clindamycin 2/2 high grade PCn allergy) - will need 5- 7 more days - cont oral vanco for C.diff x 2 weeks total Zee Davidson MD Feb 10, 2017 14:43
[2017-02-10] MEDS ORDERED: CLIN1CAP6 PO (14:44)
[2017-02-10] MEDS ORDERED: VANC125C3 PO (14:45)
[2017-02-10] MEDS ORDERED: CLINDAMYCIN 150 MG CAP PO SCH (16:00)
--- NOTE | 2017-02-10 16:10 | HHI.DS ---
Discharge Summary Admission Date Feb 01, 2017 at 00:31 Discharge Date: Feb 11, 2017 Admitting Diagnosis L perineal cellulitis (1) Cellulitis ICD Code: L03.90 Diagnosis: Principal (2) DM (diabetes mellitus) ICD Code: E11.9 Diagnosis: Secondary (3) Thrombocytopenia ICD Code: D69.6 Diagnosis: Secondary Procedures none Brief History - From Admission This is a 61 year old female patient with a past medical which includes chronic kidney disease stage III, diabetes mellitus insulin-dependent, cirrhosis, depression and tobacco abuse. Patient presented to [facility] emergency department, with complaints of left inner thigh and buttock pain edema and erythema. Patient reports the area began as a small, "cyst," that has gotten more painful and increased in size over the past week. Patient describes the pain as sharp severe and in tears at time of exam. Patient also reports generalized malaise for the past few days with chills and nausea for the past 2 days. Patient denies any specific trauma or events leading to skin irritation. Patient denies any penile numbness, vaginal discharge, bleeding or rectal discharge. Patient also denies fevers vomiting diarrhea constipation chest pain or shortness of breath. Patient reports that she had similar symptoms on the right inner thigh which required surgical intervention in the past. Pelvic CT scan done at [facility] [place] she was left perineal cellulitis with no abscess. CBC/BMP: 02/09/17 0715 02/09/17 0715 Significant Findings Laboratory Tests Test 02/08/17 02/08/17 02/08/17 02/09/17 03:17 12:07 15:05 07:15 Vancomycin Level Trough 19.4 MCG/ML (5.0-10.0) Prothrombin Time 14.0 SEC (9.8-11.6) Peritoneal Fluid WBC 46 /MM3 (0-10) Peritoneal Fluid RBC 1668 /MM3 (0-0) Red Blood Count 3.31 MIL/MM3 (4.00-5.30) Hemoglobin 9.9 GM/DL (11.6-15.3) Hematocrit 29.3 % (35.0-46.0) Platelet Count 86 TH/MM3 (150-450) Neutrophils (%) (Auto) 73.1 % (16.0-70.0) Lymphocytes # (Auto) 0.7 TH/MM3 (1.0-4.8) Platelet Estimate LOW (NORMAL) Chloride Level 115 MEQ/L (98-107) Carbon Dioxide Level 17.9 MEQ/L (21.0-32.0) Blood Urea Nitrogen 19 MG/DL (7-18) Estimat Glomerular Filtration 67 ML/MIN (>89) Rate Random Glucose 124 MG/DL (74-106) Calcium Level 7.6 MG/DL (8.5-10.1) Total Iron Binding Capacity 192 MCG/DL (250-450) Hepatitis C Antibody REACTIVE (NEGATIVE) Test 02/10/17 02:50 Vancomycin Level Trough 19.6 MCG/ML (5.0-10.0) Imaging Last Impressions Cyst Biopsy Asp-Paracentesis US 02/08/17 0000 Signed Impressions: Service Date/Time: Wednesday, February 08, 2017 14:27 - CONCLUSION: Limited uncomplicated ultrasound guided paracentesis. Sheldon Upton MD FACR Abdomen/Pelvis CT 02/08/17 0000 Signed Impressions: Service Date/Time: Wednesday, February 08, 2017 02:46 - CONCLUSION: 1. No change in cirrhosis, signs of portal venous hypertension and extensive ascites. 2. Cholelithiasis. 3. Slight bibasilar atelectasis. Gabriela Castillo MD Abdomen X-Ray 02/07/17 0000 Signed Impressions: Service Date/Time: Tuesday, February 07, 2017 14:34 - CONCLUSION: 1. No air- filled dilatation of the small or large bowel. 2. No free intraperitoneal air. 3. Degenerative changes and scoliosis of the thoracolumbar spine. Josue Prince MD PE at Discharge GENERAL: No acute distress. SKIN: dressed area. HEAD: Atraumatic. Normocephalic. EYES: Pupils equal and round. No scleral icterus. No injection or drainage. ENT: No nasal bleeding or discharge. Mucous membranes pink and moist. NECK: Trachea midline. No JVD. CARDIOVASCULAR: Regular rate and rhythm. RESPIRATORY: No accessory muscle use. Clear to auscultation. Breath sounds equal bilaterally. GASTROINTESTINAL: Abdomen soft, non-tender, distended. MUSCULOSKELETAL: Extremities without clubbing, cyanosis, or edema. No obvious deformities. NEUROLOGICAL: Awake and alert. No obvious cranial nerve deficits. PSYCHIATRIC: Appropriate mood and affect; insight and judgment normal. Hospital Course Cellulitis/phlegmon on Left Perineal area Left buttock and labia, CT not found Felisha, improving on antibiotics as per ID specialist Doctor Stuart, had Allergic Reaction to Penicillin mild to moderate resolved, on Azactam and Flagyl and Vancomycin. not found abscess for drainage as per Doctor Maday, today was recommended by ID specialist to continue Vancomycin she will try to discharge if possible tomorrow or next Monday. CKD III stable DM II insulin dependent, better control continue titration of Insulin. Depression continue Home medicines. Tobacco dependency strongly recommended to stop smoking. Thrombocytopenia improving to 86 Probable secondary to alcohol abuse. Hypertension mild uncontrol at this time continue present care. C Diff positive to continue Vancomycin by mouth for 2 more weeks. Hypomagnesemia replacement continues. Ascites status post Paracentesis Hepatitis C status post successful Ledipasvir/Sofosbuvir HARVONI Therapy DVT prophylaxis with SCDs Discussed with patient and all questions answered to the best of my abilities. Discussed with the patient, nurse, ID physician Dr Maria. Discharge Planning DC once improved and cleared by ID specialist. DC on oral abx clinda 2/2/ PNC allergy (5-7 days) and vanco. Also cleared by GI for DC. DC in stable condition. To follow up as OP with PCP and consultants Pt Condition on Discharge: Stable Discharge Disposition: Discharge Home Discharge Time: > 30 minutes Discharge Instructions DIET: Follow Instructions for: Heart Healthy Diet, Diabetic Diet Activities you can perform: Regular-No Restrictions Follow up Referrals: Gastroenterology - 2 Weeks PCP Follow-up - 3-5 Days New Medications: Clindamycin (Clindamycin) 300 Mg Cap 300 MG PO Q6H Infection Days 5 Ref 0 CAP Hydrocodone-Acetaminophen ([place]) 5-325 mg Tab 1 TAB PO Q6H PRN PAIN #10 Ref 0 TAB Vancomycin (Vancomycin) 125 Mg Cap 125 MG PO QID Infection Days 10 Ref 0 CAP Sennosides-Docusate Sodium (Senna Plus 8.6-50 mg) 1 Tab Tab 1 TAB PO BID Constipation #60 TAB Continued Medications: Furosemide (Furosemide) 20 Mg Tab 20 MG PO DAILY #30 Ref 0 TAB Lactulose Liq (Lactulose Liq) 10 Gm/15 Ml Soln 30 ML PO TID Ref 0 ML Methocarbamol (Robaxin) 500 Mg Tab 500 MG PO BID Muscle Spasm Days 30 Ref 0 TAB Mirtazapine (Remeron) 15 Mg Tab 15 MG PO HS Depression Control #30 Ref 0 TAB Omeprazole Magnesium (Prilosec) 20 Mg Tab Omeprazole Magnesium (Prilosec) 20 Mg Tab DAILY Ondansetron (Zofran) 4 Mg Tab 4 MG PO Q8HR PRN NAUSEA OR VOMITING Ref 0 TAB Spironolactone (Aldactone) 50 Mg Tab 50 MG PO DAILY #30 Ref 0 TAB Trazodone (Trazodone) 50 Mg Tab 200 MG PO HS Control Depression #30 Ref 0 TAB Nena Eagle MD Feb 10, 2017 16:10
[2017-02-10] MEDS ORDERED: DICYCLOMINE HCL 10 MG CAP PO PRN (16:15)
[2017-02-10] MEDS ORDERED: SENN1TAB PO (16:15)
[2017-02-10] MEDS ORDERED: NORC5TAB PO (16:15)
[2017-02-10 16:24] VITALS: BP 157/75; PULSE 79; RESP 20; TEMP 98.5; O2SAT 98
[2017-02-10] MEDS ORDERED: ACETAMINOPHEN/HYDROcodone 325 MG/5 MG TAB PO PRN (17:00)
[2017-02-12] MEDS ORDERED: PHARMACY ORDERED LAB ONE (02:45)
[2017-02-14 07:53] LABS: MITOCHONDRIAL ABS LESS THAN 20.0 U (())
[2017-02-14 11:52] LABS: HCV RNA PCR IU/ML LESS THAN 15 IU/mL (()); HCV RNA PCR LOGIU/ML LESS THAN 1.18 (())
== END 2017-02-10 18:19 | disposition home or self-care (01) | DRG 602 ==
LOC: NEDDLT 00:21 → N04B 00:31
PROVIDERS: ADMIT Hospitalist; ATTEND Hospitalist
PROC: 0W9G3ZZ Drainage of Peritoneal Cavity, Percutaneous Approach (ICD-10-PCS; principal; 2017-02-08)
DX: L03.315 Cellulitis of perineum (principal); A41.9 Sepsis, unspecified organism; E11.22 Type 2 diabetes mellitus with diabetic chronic kidney disease; R18.8 Other ascites; K76.6 Portal hypertension; A04.7 Enterocolitis due to Clostridium difficile; N18.3 Chronic kidney disease, stage 3 (moderate); D69.59 Other secondary thrombocytopenia; Z68.41 Body mass index [BMI] 40.0-44.9, adult; L03.317 Cellulitis of buttock; L03.116 Cellulitis of left lower limb; K74.69 Other cirrhosis of liver; T36.0X5A Adverse effect of penicillins, initial encounter; F32.9 Major depressive disorder, single episode, unspecified; B19.20 Unspecified viral hepatitis C without hepatic coma; I12.9 Hypertensive chronic kidney disease with stage 1 through stage 4 chronic kidney disease, or unspecified chronic kidney disease; R16.1 Splenomegaly, not elsewhere classified; E66.9 Obesity, unspecified; L27.0 Generalized skin eruption due to drugs and medicaments taken internally; K80.20 Calculus of gallbladder without cholecystitis without obstruction; E83.42 Hypomagnesemia; L02.215 Cutaneous abscess of perineum; E87.5 Hyperkalemia; F10.10 Alcohol abuse, uncomplicated; F17.210 Nicotine dependence, cigarettes, uncomplicated; Z79.4 Long term (current) use of insulin; Z86.19 Personal history of other infectious and parasitic diseases; Z88.0 Allergy status to penicillin; Z91.012 Allergy to eggs; Z91.018 Allergy to other foods
CPT/HCPCS: 49083; 72192; 74000; 74150; 74177; 76937; 80048; 80053; 80074; 80202; 81001; 82042; 82103; 82105; 82150; 82390; 82565; 82728; 82945; 82948; 83520; 83540; 83550; 83605; 83615; 83735; 84155; 84157; 85007; 85025; 85027; 85610; 86038; 86256; 86403; 87040; 87070; 87077; 87186; 87205; 87493; 87522; 89051; 96374; 96375; C1729; J1170; J1200; J1815; J1885; J2270; J2405; J2543; J3370; J3475; J7030; J7040; J7050; Q9967